=== PATIENT | male | born 1955 | race Caucasian/White ===

== ENCOUNTER 2023-02-12 12:32 | Outpatient (OUT) | payer MEDICARE, OTHER, SELFPAY ==
--- NOTE | 2023-02-12 12:41 | XR_ITS ---
The [address] [address] Patient Name: MATTY LIANG MRN: [id number] date: 1955 Sex: M Assigned Patient Location: RAD Current Patient Location: [facility] Accession/Order Number: [id number] Exam Date: 02/12/2023 12:45 Report Date: 02/12/2023 14:02 At the request of: TEODORA ARIAS Procedure: XR abdomen 1V EXAM: XR abdomen 1V HISTORY: Uretal stone COMPARISON: None. TECHNIQUE: AP view of the abdomen. FINDINGS: Nonobstructive bowel gas pattern is noted. There is no suspicious calcification. The osseous structures are intact. XR/XR abdomen 1V IMPRESSION: Nonobstructive bowel gas pattern. No suspicious renal calcification. Electronically authenticated by: RAMON OSBORNE Date: 02/12/2023 14:02
== END 2023-02-12 12:33 | disposition home or self-care (01) ==
LOC: RAD 12:37
PROVIDERS: PCP Family Medicine; Visit Provider Urology
DX: N13.2 Hydronephrosis with renal and ureteral calculous obstruction (principal)
CPT/HCPCS: 74018

== ENCOUNTER 2023-03-10 09:55 | Outpatient (OUT) | payer MEDICARE, OTHER, SELFPAY ==
--- NOTE | 2023-03-10 10:04 | XR_ITS ---
The [address] [address] Patient Name: MATTY LIANG MRN: [id number] date: 1955 Sex: M Assigned Patient Location: [facility] Current Patient Location: [facility] Accession/Order Number: [id number] Exam Date: 03/10/2023 10:05 Report Date: 03/10/2023 10:38 At the request of: TEODORA ARIAS Procedure: XR abdomen 1V EXAM: XR abdomen 1V HISTORY: Kidney Stone COMPARISON: None. TECHNIQUE: AP view of the abdomen. FINDINGS: Nonobstructive bowel gas pattern is noted. There is no suspicious calcification. Multilevel endplate degenerative changes disc disease identified at the visualized spine. XR/XR abdomen 1V IMPRESSION: Nonobstructive bowel gas pattern. Constipation. Electronically authenticated by: RAMON OSBORNE Date: 03/10/2023 10:38
== END 2023-03-10 09:56 | disposition home or self-care (01) ==
LOC: RAD 09:57
PROVIDERS: PCP Family Medicine; Visit Provider Urology
DX: N20.0 Calculus of kidney (principal)
CPT/HCPCS: 74018

== ENCOUNTER 2024-04-11 10:27 | Outpatient (OUT) | payer MEDICARE, OTHER, SELFPAY ==
--- NOTE | 2024-04-11 10:34 | XR_ITS ---
The [address] [address] Patient Name: MATTY LIANG MRN: [id number] date: 1955 Sex: M Assigned Patient Location: [facility] Current Patient Location: Accession/Order Number: [id number] Exam Date: 04/11/2024 10:37 Report Date: 04/12/2024 09:14 At the request of: TEODORA ARIAS Procedure: XR abdomen 1V EXAMINATION: XR abdomen 1V HISTORY: Kidney Stone COMPARISON: 03/10/2023 FINDINGS: KIDNEY/URETER - RIGHT: No visible renal or ureteral calcifications. KIDNEY/URETER - LEFT: No visible renal or ureteral calcifications. PELVIS: No visible ureteral calcifications. Any visible calcifications favor phleboliths. BOWEL: No abnormal dilation or deviation. BONES: Moderate to severe degenerative changes. Lumbosacral fusion. Bilateral hip osteoarthritis OTHER: Negative. No abnormal gaseous collections. XR/XR abdomen 1V IMPRESSION: No definite urinary tract calculi Electronically authenticated by: WILFREDO SEGURA Date: 04/12/2024 09:14
== END 2024-04-11 10:28 | disposition home or self-care (01) ==
LOC: RAD 10:32
PROVIDERS: PCP Family Medicine; Visit Provider Urology
DX: N20.0 Calculus of kidney (principal)
CPT/HCPCS: 74018

== ENCOUNTER 2024-07-18 07:19 | Day surgery (SDC) | payer MEDICARE, OTHER, SELFPAY ==
--- OUTSIDE RECORDS SUMMARY | 2024-07-18 07:23 | XMS_ITS | CCD ---
Author Organization [facility] Team Providers Care Wireless Construction Manager Name Role Phone JELANI DONOVAN Primary Care Physician JUANA ., DR ARAIZA Admitting Unavailable YAN ., DR ARAIZA Attending Unavailable ALVARO, DR AQUINO Primary Care Unavailable YAN ., DR ARAIZA Consulting Unavailable CECE II, LAUREN Consulting Unavailable KOJULIAN, ENEDINA Consulting Unavailable YAN ., DR ARAIZA Admitting Unavailable YAN ., DR ARAIZA Attending Unavailable ALVARO, DR AQUINO Primary Care Unavailable YAN ., DR ARAIZA Consulting Unavailable ZIEBER, DR AYLIN Weber Consulting Unavailable YAN ., DR ARAIZA Admitting Unavailable YNA ., DR ARAIZA Attending Unavailable ALVARO, DR AQUINO Primary Care Unavailable YAN ., DR ARAIZA Consulting Unavailable YAN ., DR ARAIZA Admitting Unavailable YAN ., DR ARAIZA Attending Unavailable ALVARO, DR AQUINO Primary Care Unavailable YAN ., DR ARAIZA Consulting Unavailable Asaad, Imad Unavailable Jelani Donovan Primary Care Unavailable Jelani Donovan Attending Unavailable Jelani Donovan Admitting Unavailable Jelani Donovan Primary Care Unavailable YanAriel Admitting Unavailable YanAriel Attending Unavailable YANAriel Attending Unavailable YAN, Ariel Weber Attending Unavailable YANAriel Attending Unavailable Allergies Allergy Classification Reported Allergen(s) Allergy Type Date of Onset Reaction(s) Facility (2 sources) Bacitracin / Neomycin / Polymyxin B; Translations: [Neosporin] Drug Allergy [facility] Repository (1 source) bacitracin / neomycin / polymyxin b; Translations: [bacitracin/neom ycin/polymyxin B topical] Drug Allergy Eruption of skin (disorder) [facility] (1 source) Bacitracin Drug Allergy 3 [facility] Repository (1 source) Neomycin Drug Allergy [address] [place] [address] Repository (1 source) polymyxin B Drug allergy (disorder) [address] [place] [address] Repository Medications Current Medications Medication Drug Class(es) Dates Sig (Normalized) Sig (Original) acetaminophen 500 mg oral tablet (6 sources) Start: 01-23-2020 take 2 tablets by mouth every four hours as needed for pain Tylenol Extra Strength 500 mg oral tablet 1,000 mg = 2 tab(s), Oral, q4hr, PRN for pain Start Date: 01/23/20 Status: Ordered amitriptyline hydrochloride 25 mg oral tablet (10 sources) Tricyclic Antidepressant Start: 01-16-2020 take 2 tablets by mouth once daily at bedtime amitriptyline 25 mg Tab 50 mg = 2 tab(s), Oral, Once a day (at bedtime), Depression Start Date: 01/16/20 Status: Ordered atorvastatin 20 mg oral tablet (10 sources) HMG-CoA Reductase Inhibitor Start: 08-25-2022 atorvastatin 20 mg Tab Refills(s) 0 Start Date: 08/25/22 Status: Ordered ciprofloxacin 500 mg oral tablet (3 sources) Quinolone Antimicrobial Start: 04-18-2024 End: 04-25-2024 Cipro 500 mg Tab 500 mg = 1 tab(s), Oral, BID, start 3 days prior to procedure, X 7 day(s), # 14 tab(s), Refills(s) 0, Pharmacy: [facility]/pharmacy #[id number], 187, cm, 04/18/24 8:50:00 EDT, Height/Length Dosing, 129, kg, 04/18/24 8:50:00 EDT, Weight Dosing Start Date: 04/18/24 Stop Date: 04/25/24 Status: Ordered Start: 09-16-2022 take 1 tablet by jessica th once daily Cipro 500 mg Tab 500 mg = 1 tab(s), Oral, Daily, Take 1 tablet the day before the procedure and 1 tablet after the procedure, # 2 tab(s), Refills(s) 0, Pharmacy: [facility]/pharmacy #[id number], 187, cm, 08/28/22 12:09:00 EST, Height/Length Dosing, 132.5, kg, 08/28/22 12:09:00 EST... Start Date: 09/16/22 Status: Ordered diclofenac sodium 75 mg extended release oral tablet (10 sources) Nonsteroidal Anti-inflammatory Drug Start: 01-23-2020 take 75 mg by mouth twice daily diclofenac 75 mg, Oral, BID, Inflammation Start Date: 01/23/20 Status: Ordered take 1 tablet by jessica th every twelve hours Diclofenac Sodium 75 MG 1 tablet with fo od or milk Orally Twice a day for 30 day(s) Active docusate sodium 100 mg oral capsule (10 sources) Start: 01-22-2020 take 1 capsule by mouth twice daily Colace 100 mg Cap 100 mg = 1 cap(s), Oral, BID, Refills(s) 0 Start Date: 01/22/20 Status: Ordered Colace 100 MG 3 CAPS DAILY Orally Once a day Active hydrocortisone 25 mg/ml topical cream (2 sources) Corticosteroid Start: 12-24-2022 Anusol-HC 2.5 % 1 application Rectal Twice a day for 30 days November, Active ondansetron 4 mg disintegrating oral tablet (4 sources) Serotonin-3 Receptor Antagonist Start: 08-25-2022 ondansetron 4 mg Dis Tab Refills(s) 0 Start Date: 08/25/22 Status: Ordered polyethylene glycol 3350 543152 mg / potassium chloride 2970 mg / sodium bicarbonate 6740 mg / sodium chloride 5860 mg / sodium sulfate 57357 mg powder for oral solution (4 sources) Osmotic Laxative Start: 02-18-2023 Golytely 236 GM At 4:00 pm the day prior to colonoscopy Orally 8 ounces every 15 minutes for Jan, Active Start: 12-24-2022 take 236 g by mouth once daily Golytely 236 GM 236 GM THE DAY BEFORE THE COLONOSCOPY Orally THE DAY BEFORE THE COLONOSCOPY for 1 days November, Active sildenafil 50 mg oral tablet (6 sources) Phosphodiesterase 5 Inhibitor Start: 08-25-2022 sildenafil 50 mg Tab Refills(s) 0 Start Date: 08/25/22 Status: Ordered tamsulosin hydrochloride 0.4 mg oral capsule (4 sources) alpha-Adrenergic Emily Start: 08-25-2022 take 1 capsule by mouth twice daily Flomax 0.4 mg Cap 0.4 mg = 1 cap(s), Oral, BID, # 10 cap(s), Refills(s) 0, Pharmacy: [facility]/pharmacy #[id number], 187, cm, 08/25/22 10:32:00 EST, Height/Length Dosing, 130, kg, 08/25/22 10:32:00 EST, Weight Dosing Start Date: 08/25/22 Status: Ordered temazepam 30 mg oral capsule (10 sources) Benzodiazepine Start: 01-16-2020 take 1 capsule by mouth once daily at bedtime as needed for sleep temazepam 30 mg Cap 30 mg = 1 cap(s), Oral, Once a day (at bedtime), PRN for sleep Start Date: 01/16/20 Status: Ordered Completed/Discontinued Medications Medication Drug Class(es) Dates Sig (Normalized) Sig (Original) cetirizine hydrochloride 10 mg oral tablet (4 sources) Histamine-1 Receptor Antagonist take 1 tablet by mouth every twenty-four hours Cetirizine HCl 10 MG 1 tablet Orally Once a day Not-Taking Doxylamine (2 sources) Unisom Not-Taking fluticasone (2 sources) Corticosteroid Flonase Not-Taking hyaluronate (20 sources) Start: 03-01-2019 Supartz Feb, 25 mg Start: 02-22-2019 Supartz Jan 25 mg Start: 02-15-2019 Supartz Jan 25 mg Start: 02-01-2019 Supartz Jan 25 mg Start: 01-25-2019 Supartz Jan 25 mg Lipo-Flavonoid Plus - (2 sources) Lipo-Flavonoid P guera - Orally Not-Taking omeprazole 40 mg delayed release oral capsule (4 sources) Proton Pump Inhibitor Start: 09-15-19 17 take 1 capsule by mouth every twenty-four hours Omeprazole 40 mg 1 capsule Orally Once a day for 30 day(s) Aug, Not-Taking take 1 capsule by mo ut every twenty-four hours Omeprazole 20 mg 1 CAPSULE Orally Once a day Not-Taking psyllium 400 mg oral capsule (10 sources) Start: 01-16-2020 take 8 capsules by mouth three times daily Metamucil 400 mg oral capsule 2,000 mg = 5 cap(s), Oral, TID, fiber with at least 8 ounces of water Start Date: 01/16/20 Status: Ordered Metamucil 48.57 % as directed Orally Not-Taking Metamucil 1 tab Oral Not-Taking sertraline 50 mg oral tablet (2 sources) Serotonin Reuptake Inhibitor take 0.5 tablet by mouth once daily, then take 1 tablet by mouth once daily Sertraline HCl 50 MG TAKE 1/2 TABLET BY MOUTH DAILY FOR 14 DAYS, THEN TAKE 1 DAILY Oral for 30 Not-Taking Triamcinolone (4 sources) Corticosteroid Start: 01-05-20 Kenalog -40 mg Dec, 40 mg Problems Problem Classification Problem Date Documented Da te Episodic/Chronic Abdominal pain (4 sources) Epigastric pain; Translations: [Epigastric pain] Episodic Calculus of urinary tract (7 sources) Calculus of ureter; Translations: [Calculus of kidney] Onset: 3 Episodic Disorders of lipid metabolism (2 sources) Hyperlipidemia, unspecified; Translations: [Pure hypercholesterolemia, unspecified] Onset: 3 Chronic Gastrointestinal hemorrhage (5 sources) Rectal hemorrhage; Translations: [Hemorrhage of anus and rectum] Episodic Genitourinary symptoms and ill-defined conditions (8 sources) Microscopic hematuria; Translations: [Other microscopic hematuria] Onset: 3 Episodic Hemorrhoids (5 sources) Hemorrhoids; Translations: [Unspecified hemorrhoids] Episodic Hyperplasia of prostate (2 sources) Benign prostatic hypertrophy without outflow obstruction; Translations: [Benign prostatic hyperplasia without lower urinary tract symptoms] Onset: 4 Chronic Mood disorders (6 sources) Depressive disorder 01-16-2020 Chronic Osteoarthritis (14 sources) Osteoarthritis of knee; Translations: [Arthritis of left knee] 01-16-2020 Chronic Other aftercare (1 source) Other filler leaf cutter long (current) drug therapy; Translations: [OTH PRIMARY COUNSELOR CURRENT DRUG THERAPY] Onset: 3 Episodic Other and unspecified benign neoplasm (2 sources) History of polyp of colon; Translations: [Personal history of colonic polyps] Episodic Other and unspecified benign neoplasm (1 source) Personal history of colonic polyps Episodic Other connective tissue disease (1 source) Presence of unspecified artificial knee joint; Translations: [PRESENCE UNS ARTIFICIAL KNEE JOINT] Onset: 3 Chronic Other connective tissue disease (4 sources) History of total knee arthroplasty; Translations: [Presence of right artificial knee joint] Chronic Other connective tissue disease (1 source) Arthrodesis status; Translations: [ARTHRODESIS STATUS] Onset: 3 Episodic Other diseases of bladder and urethra (1 source) Other specified disorders of bladder; Translations: [OTHER SPECIFIED DISORDERS BLADDER] Onset: 3 Chronic Other diseases of kidney and ureters (2 sources) Urinary tract obstruction; Translations: [Hydronephrosis with renal and ureteral calculous obstruction] Onset: 3 Episodic Other diseases of kidney and ureters (6 sources) Hydronephrosis 08-25-2022 Episodic Other diseases of kidney and ureters (4 sources) Hydronephrosis with renal and ureteral calculous obstruction; Translations: [HYDRONPHROS RENL AND URETRL CALCUL OBST] Onset: 3 Episodic Other gastrointestinal disorders (4 sources) Constipation; Translations: [Constipation, unspecified] Episodic Other gastrointestinal disorders (1 source) Constipation, unspecified Episodic Other nutritional; endocrine; and metabolic disorders (4 sources) Obese class I; Translations: [Body mass index (BMI) 33.0-33.9, adult] Chronic Other screening for suspected conditions (not mental disorders or infectious disease) (5 sources) Abnormal electrocardiogram [ECG] [EKG]; Translations: [Encounter for screening for malignant neoplasm of prostate] Onset: 3 Episodic Residual codes; unclassified (1 source) Family history of malignant neoplasm of digestive organs Episodic Unclassified (1 source) Patient encounter status 03-23-2023 Varicose veins of lower extremity (4 sources) Varicose veins of lower extremity; Translations: [Varicose veins of bilateral lower extremities with pain] Episodic Results Test Name Value Interpretation Reference Range Facility ISTAT XRay CREon 06-14-2024 Creatinine [Mass/Vol] 1.4 mg/dL High 0.6-1.3 [facility] Comment on above: Result Comment: ER/E SD physician is notified/shown all ISTAT results. Critical values may be confirmed by laboratory testing if deemed necessary by ER attending doctor. Performed By: #### I SCRE #### [address] ISTAT GFR 54.070 Normal [facility] Comment on above: Result Comment: PERF ORMED BY: [place] [address] PATHOLOGIST SATURATION DIVER CESIA MEHTA M.D. Performed By: #### I SCRE #### [address] MR prostate wo/w conon 06-14 MR prostate wo/w con [facility] [address] [place] [address] [place] [address] MRI Report Signed Patient: Matty Liang MR#: [id number] 35 : 1955 Acct:[id number] Age/Sex: 68 / M ADM Date: 06/14/24 Loc: MR Room: Type: [facility] Attending Dr: Ariel Yan MD Copies to: Ariel Yan MD Ordering Provider: Ariel Yan MD Date of Service: 06/14/24 MR/MR prostate wo/w con: R97.20 EXAMINATION: MR prostate wo/w con HISTORY: Elevated PSA. COMPARISON: NONE TECHNIQUE: Multiparametric imaging of the prostate gland was performed with IV contrast. FINDINGS: Prostate Dimensions: 5.9 x 5.4 x 6.9 cm Prostate Volume: 115 mL. Peripheral Zone: Heterogenous inT2 signal suggestive of prior prostatitis. No suspicious T2 or ADC map abnormality is identified to suggest prostate malignancy. Central/Transitional Zone: BPH changes. Seminal Vesicles: Decompressed. Neurovascular bundles: Unremarkable. Lymphadenopathy: No evidence of lymphadenopathy. Bladder: No focal lesion. Bowel: Diverticulosis. Peritoneal Cavity: No free fluid. Bones: No suspicious bony lesion. MR/MR prostate wo/w con IMPRESSION: No MRI evidence of clinically significant prostate cancer. BPH. Impression dictated by: Alirio Coles Jr., D.O.06/14/2024 3:21 PM Dictation Location: [place] [address] Transcribed By: [facility] 06/14/24 1521 Dictated By: Alirio Coles Jr, DO 06/14/24 1514 Signed By: 06/14/24 1521 Normal [facility] Ambulatory Visit Summaryon 0 04-18-2024 Ambulatory Visit Summary Ambulatory Visit Summary MATTY LIANG :1955 Visit Date:04/18/2024 Ambulatory Visit Instructions Your Diagnosis Elevated PSA History of kidney stones BPH (benign prostatic hyperplasia) Tests Performed MRI Pelvis (Soft Tissue) w/ + w/o contrast -- Results Pending -- Please visit your patient portal for your results or contact your primary care physician. Your Care Team Attending Physician - Ariel YAN MD Primary Care Physician - JELANI DONOVAN MD This Is Your Medications List Contact prescribing physician if questions or concerns acetaminophen (Tylenol Extra Strength 500 mg oral tablet) amitriptyline (amitriptyline 25 mg Tab) atorvastatin (atorvastatin 20 mg Tab) diclofenac docusate (Colace 100 mg Cap) psyllium (Metamucil 400 mg oral capsule) sildenafil (sildenafil 50 mg Tab) temazepam (temazepam 30 mg Cap) Procedures Performed Total knee arthroplasty (01/23/2020), Arthroscopy of knee, Bone spur of left foot, Excision of ganglion cyst of wrist, recurrent, Excision of peripheral neuroma, History of spinal fusion, History of tonsillectomy, History of total knee arthroplasty, Repair of left direct inguinal hernia, Repair of right direct inguinal hernia, Varicose vein stripping. Discharge Vitals Temperature (Temporal Artery) 37 ?C Heart Rate (Peripheral) 79 Respiratory Rate 18 Blood Pressure 138/83 Height 187 cm Height 74 in Weight 129 kg Weight 283.8 lb BMI 36.89 What to do next You Need to Schedule the Following Appointments Follow Up with JUANA HOGAN, SUJATHA Cruz When: Where: [facility] [address] , [place] [address]- [phone] Medications What How Much When Instructions Unchanged acetaminophen (Tylenol Extra Strength 500 mg oral tablet) 2 Tablets By Mouth Every 4 hours as needed for for pain Contact prescribing physician if questions or concerns Unchanged amitriptyline (amitriptyline 25 mg Tab) 2 Tablets By Mouth Once a day (at bedtime) Contact prescribing physician if questions or concerns Unchanged atorvastatin (atorvastatin 20 mg Tab) Contact prescribing physician if questions or concerns Unchanged diclofenac 75 Milligram By Mouth 2 times a day Contact prescribing physician if questions or concerns Unchanged docusate (Colace 100 mg Cap) 1 Capsules By Mouth 2 times a day Contact prescribing physician if questions or concerns Unchanged psyllium (Metamucil 400 mg oral capsule) 5 Capsules By Mouth 3 times a day fiber with at least 8 ounces of water Contact prescribing physician if questions or concerns Unchanged sildenafil (sildenafil 50 mg Tab) Contact prescribing physician if questions or concerns Unchanged temazepam (temazepam 30 mg Cap) 1 Capsules By Mouth Once a day (at bedtime) as needed for for sleep Contact prescribing physician if questions or concerns Allergies Neosporin (Rash) Problems Ongoing - Any problem that you are currently receiving treatment for. BPH (benign prostatic hyperplasia) Elevated PSA History of kidney stones Microhematuria Ureteral stone with hydronephrosis Patient Survey You may receive a survey via text or e-mail asking about your office visit. Please share your experience with us by completing your survey. We appreciate your feedback and thank you for choosing us for your care. Education Materials Transrectal Ultrasound-Guided Prostate Biopsy, Care After The following information offers guidance on how to care for yourself after your procedure. Your health care provider may also give you more specific instructions. If you have problems or questions, contact your health care provider. What can I expect after the procedure? After the procedure, it is common to have: ? Pain and discomfort near your rectum, especially while sitting. ? [place]-colored urine due to small amounts of blood in your urine. ? A burning feeling while urinating. ? Blood in your stool (feces) or bleeding from your rectum. ? Blood in your semen. Follow these instructions at home: Medicines ? Take [id number] and prescription medicines only as told by your health care provider. ? If you were given a sedative during your procedure, it can affect you for several hours. Do not drive or operate machinery until your health care provider says that it is safe. ? If you were prescribed an antibiotic medicine, take it as told by your health care provider. Do not stop using the antibiotic even if you start to feel better. Activity ? Return to your normal activities as told by your health care provider. Ask your health care provider what activities are safe for you. ? Ask your health care provider when it is okay for you to resume sexual activity. ? You may have to avoid lifting. Ask your health care provider how much you can safely lift. General instructions ? Drink enough fluid to keep your urine pa (more content not included)... Normal [facility] Urology Office/Clinic Noteon 04-18-2024 Urology Office/Clinic Note Urology Office/Clinic Note Chief Complaint 1 year f/u HPI Staff 1 yr w/ KUB. Previous dx: ureteral stone with hydro, prostate cancer screening. PSA 04/08/23 - 4.11 04/08/24 - 5.89 Dysuria: denies Incomplete bladder emptying: denies Hematuria: denies Frequency: denies Urgency: denies Nocturia: 1-2x Stream: good steady stream Leaking: denies Post void dripping: denies Wearing pads/ Depends: denies Urge incontinence: denies Stress incontinence: denies Incontinence without Sensory Awareness: denies Abdominal pain: denies Flank pain: denies Sexual complaints: denies History of Present Illness Tests reviewed: reviewed UA, PSA, KUB I have reviewed the previous health record information and history for this patient from Dr. Yan. I have reviewed and verified the staff HPI to be accurate for this encounter. Review of Systems PHQ Score Initial Depression Screen Score: 0 SCORE ROS - Provider Constitutional: denies weight loss, denies hot flashes. Eyes: denies eye problems. Gastrointestinal: denies nausea, denies vomiting. Cardiovascular: denies chest pain or angina. Integumentary: no dryness Musculoskeletal: denies musculoskeletal symptoms. ENMT: denies otolaryngeal symptoms. Respiratory: no shortness of breath. Heme/Lymph: denies easy bleeding tendency, denies easy bruising tendency. Psychiatric: no confusion, no anxiety. Genitourinary: See HPI. Physical Exam Vitals & Measurements T: 37 ?C(Temporal Artery) HR: 79(Peripheral) RR: 18 BP: 138/83 HT: 74 in HT: 187 cm WT: 129 kg WT: 283.8 lb BMI: 36.89 General Appearance: alert, no distress, well nourished, well developed male. Assessment/Plan 1. Elevated PSA (R97.20: Elevated prostate specific antigen [PSA]) PSA 12/06/07 - 1.54 10/04/09 - 1.25 ... 04/08/23 - 4.11 04/08/24 - 5.89 Pt previously thought his PCP was checking his PSA. Current level is highest on record. Advised pt an elevated PSA could indicate prostate cancer, prostate infection, prostate inflammation without infection, prostate manipulation, or benign prostate enlargement (BPH). Recommended prostate MRI and biopsy to better evaluate. Pt agreeable. -Schedule prostate MRI -If positive, will schedule MRI fusion. If negative, will schedule mapped out bx. Risks of the procedure were discussed to include but not be limited to bleeding, pain, infection, difficulties with urination, injury to the urethra, prostate or bladder or surrounding tissues, injury from positioning on the table, swelling and bruising of the skin, and need for further procedures. 2. History of kidney stones (Z87.442: Personal history of urinary calculi) S/p Cysto/L URS/laser litho/basket extraction/L stent/clot evacuation 09/11/22. First stone event. Stone analysis - 100% CaOx [place]. S/p Cysto/L stent removal 09/23/22. KUB 02/12/23 for left abdominal pain - negative. KUB 03/10/23 - negative. KUB 04/11/24 [facility] - neg for stones. Reviewed imaging results, no stones noted. Will continue to monitor. 3. BPH (benign prostatic hyperplasia) (N40.0: Benign prostatic hyperplasia without lower urinary tract symptoms) UA today negative for blood and infection. Not voicing any issues with urination. Taking prostate supplement. Follow-up With When Contact Information JUANA HOGAN, Ariel Weber, [facility] [address], [place] [address] [phone] Additional Instructions: f/u pending prostate MRI and biopsy Patient Education Transrectal Ultrasound-Guided Prostate Biopsy, Care After Transrectal Ultrasound-Guided Prostate Biopsy Magnetic Resonance Imaging Mily Dhillon, personally scribed for Dr. Yan on 04/18/2024 09:22:15. . Documentation recorded by the scribeMily, accurately reflects the services(s) I performed and decisions made by me. Authenticated by Dr. Yan on 04/18/2024 09:23:56. Problem List/Past Medical History Ongoing BPH (benign prostatic hyperplasia) Elevated PSA History of kidney stones Microhematuria Ureteral stone with hydronephrosis Historical No qualifying data Procedure/Surgical History Total knee arthroplasty (01/23/2020), Arthroscopy of knee, Bone spur of left foot, Excision of ganglion cyst of wrist, recurrent, Excision of peripheral neuroma, History of spinal fusion, History of tonsillectomy, History of total knee arthroplasty, Repair of left direct inguinal hernia, Repair of right direct inguinal hernia, Varicose vein stripping. Medications amitriptyline 25 mg Tab, 50 mg= 2 tab(s), Oral, Once a day (at bedtime) atorvastatin 20 mg Tab Colace 100 mg Cap, 100 mg= 1 cap(s), Oral, BID diclofenac, 75 mg, Oral, BID Metamucil 400 mg oral capsule, 2000 mg= 5 cap(s), Oral, TID sildenafil 50 mg Tab temazepam 30 mg Cap, 30 mg= 1 cap(s), Oral, Once a day (at bedtime), PRN Tylenol Extra Strength 500 mg oral tablet, 1000 mg= 2 tab(s), Oral, q4hr, PRN Allergies N (more content not included)... Normal [facility] Comment on above: Result Comment: Elec tronically Signed By: Ariel YAN MD\.br\Date and Time Signed: 04/18/24 09:24 EDT\.br\Electronically Co-Signed By: Mily Madrigal\.br\Date and Time Co-Signed: 04/18/24 09:22 EDT Complete Blood Count Auto Di ffon 04-08-2024 Basophils (Bld) [#/Vol] 0.1 10*3/uL Normal 0.0-0.2 [facility] Comment on above: Order Comment: BRYCE TURNER Result Comment: PERF ORMED BY: [place] [address] PATHOLOGIST SATURATION DIVER MICHELLE TOUSSAINT M.D. Performed By: #### P SATOTAL, CBC, CMP, LIPID, TSH3, T4F #### [address] Basophils/100 WBC (Bld) 1.4 % Normal . [facility] Comment on above: Order Comment: BRYCE TURNER Performed By: #### P SATOTAL, CBC, CMP, LIPID, TSH3, T4F #### [address] Eosinophils (Bld) [#/Vol] 0.2 10*3/uL Normal 0.0-0.45 [facility] Comment on above: Order Comment: FASTI NG. JKW Performed By: #### P SATOTAL, CBC, CMP, LIPID, TSH3, T4F #### [address] Eosinophils/100 WBC (Bld) 2.8 % Normal . [facility] Comment on above: Order Comment: FASTI NG. JKW Performed By: #### P SATOTAL, CBC, CMP, LIPID, TSH3, T4F #### [address] Erythrocyte distribution width (RBC) [Ratio] 14.9 % High 12.0-14.8 [facility] Comment on above: Order Comment: FASTI NG. JKW Performed By: #### P SATOTAL, CBC, CMP, LIPID, TSH3, T4F #### [address] Hematocrit (Bld) [Volume fraction] 38.9 % Normal 38.8-50.0 [facility] Comment on above: Order Comment: FASTI NG. JKW Performed By: #### P SATOTAL, CBC, CMP, LIPID, TSH3, T4F #### [address] Hemoglobin (Bld) [Mass/Vol] 12.8 g/dL Low 13.0-17.0 [facility] Comment on above: Order Comment: FASTI NG. JKW Performed By: #### P SATOTAL, CBC, CMP, LIPID, TSH3, T4F #### [address] Lymphocytes (Bld) [#/Vol] 2.0 10*3/uL Normal 1.00-4.8 [facility] Comment on above: Order Comment: FASTI NG. JKW Performed By: #### P SATOTAL, CBC, CMP, LIPID, TSH3, T4F #### [address] Lymphocytes/100 WBC (Bld) 25.7 % Normal . [facility] Comment on above: Order Comment: FASTI NG. JKW Performed By: #### P SATOTAL, CBC, CMP, LIPID, TSH3, T4F #### [address] MCH (RBC) [Entitic mass] 27.4 pg Low 27.5-35.2 [facility] Comment on above: Order Comment: FASTI NG. JKW Performed By: #### P SATOTAL, CBC, CMP, LIPID, TSH3, T4F #### [address] MCV (RBC) [Entitic vol] 83.0 fL Low 83.5-101 [facility] Comment on above: Order Comment: FASTI NG. JKW Performed By: #### P SATOTAL, CBC, CMP, LIPID, TSH3, T4F #### [address] Mean Corpuscular HGB Conc 33.1 g/dL Normal 32.5-35.6 [facility] Comment on above: Order Comment: FASTI NG. JKW Performed By: #### P SATOTAL, CBC, CMP, LIPID, TSH3, T4F #### [address] Monocytes (Bld) [#/Vol] 0.5 10*3/uL Normal 0.0-0.8 [facility] Comment on above: Order Comment: FASTI NG. JKW Performed By: #### P SATOTAL, CBC, CMP, LIPID, TSH3, T4F #### [address] Monocytes/100 WBC (Bld) 6.1 % Normal . [facility] Comment on above: Order Comment: FASTI NG. JKW Performed By: #### P SATOTAL, CBC, CMP, LIPID, TSH3, T4F #### [address] Neutrophils (Bld) [#/Vol] 4.9 10*3/uL Normal 1.8-7.7 [facility] Comment on above: Order Comment: FASTI NG. JKW Performed By: #### P SATOTAL, CBC, CMP, LIPID, TSH3, T4F #### [address] Neutrophils/100 WBC (Bld) 64.0 % Normal . [facility] Comment on above: Order Comment: FASTI NG. JKW Performed By: #### P SATOTAL, CBC, CMP, LIPID, TSH3, T4F #### [address] NRBC% 0.1 /100{WBC} Normal 0-0.5 [facility] Comment on above: Order Comment: FASTI NG. JKW Performed By: #### P SATOTAL, CBC, CMP, LIPID, TSH3, T4F #### [address] Platelet mean volume (Bld) [Entitic vol] 8.7 fL Normal 6.6-10.[address] [facility] Comment on above: Order Comment: FASTI NG. JKW Performed By: #### P SATOTAL, CBC, CMP, LIPID, TSH3, T4F #### [address] Platelets (Bld) [#/Vol] 222 10*3/uL Normal 150-450 [facility] Comment on above: Order Comment: FASTI NG. JKW Performed By: #### P SATOTAL, CBC, CMP, LIPID, TSH3, T4F #### [address] RBC (Bld) [#/Vol] 4.68 10*6/uL Normal 3.90-5.60 [facility] Comment on above: Order Comment: FASTI NG. JKW Performed By: #### P SATOTAL, CBC, CMP, LIPID, TSH3, T4F #### [address] WBC (Bld) [#/Vol] 7.7 10*3/uL Normal 4.1-10.5 [facility] Comment on above: Order Comment: FASTI NG. JKW Performed By: #### P SATOTAL, CBC, CMP, LIPID, TSH3, T4F #### [address] Comprehensive Metabolic Pane shauna 04-08-2024 Albumin [Mass/Vol] 4.0 g/dL Normal 3.5-5.7 [facility] Comment on above: Order Comment: FASTI NG. JKW Performed By: #### P SATOTAL, CBC, CMP, LIPID, TSH3, T4F #### [address] Albumin/Globulin [Mass ratio] 1.7 {ratio} Normal [facility] Comment on above: Order Comment: FASTI NG. JKW Performed By: #### P SATOTAL, CBC, CMP, LIPID, TSH3, T4F #### [address] ALP [Catalytic activity/Vol] 85 U/L Normal 34-104 [facility] Comment on above: Order Comment: FASTI NG. JKW Performed By: #### P SATOTAL, CBC, CMP, LIPID, TSH3, T4F #### [address] ALT [Catalytic activity/Vol] 29 U/L Normal 7-52 [facility] Comment on above: Order Comment: FASTI NG. JKW Performed By: #### P SATOTAL, CBC, CMP, LIPID, TSH3, T4F #### [address] Anion gap [Moles/Vol] 9.8 mmol/L Normal 6.0-15.0 [facility] Comment on above: Order Comment: FASTI NG. JKW Performed By: #### P SATOTAL, CBC, CMP, LIPID, TSH3, T4F #### [address] AST [Catalytic activity/Vol] 23 U/L Normal 13-39 [facility] Comment on above: Order Comment: FASTI NG. JKW Performed By: #### P SATOTAL, CBC, CMP, LIPID, TSH3, T4F #### [facility] [address] Bilirubin [Mass/Vol] 0.6 mg/dL Normal 0.3-1.0 [facility] Comment on above: Order Comment: FASTI NG. JKW Performed By: #### P SATOTAL, CBC, CMP, LIPID, TSH3, T4F #### [facility] [address] Calcium [Mass/Vol] 9.2 mg/dL Normal 8.6-10.3 [facility] Comment on above: Order Comment: FASTI NG. JKW Performed By: #### P SATOTAL, CBC, CMP, LIPID, TSH3, T4F #### [address] Chloride [Moles/Vol] 108 mmol/L High 98-107 [facility] Comment on above: Order Comment: FASTI NG. JKW Performed By: #### P SATOTAL, CBC, CMP, LIPID, TSH3, T4F #### [address] CO2 [Moles/Vol] 27.8 mmol/L Normal 21.0-31.0 [facility] Comment on above: Order Comment: FASTI NG. JKW Performed By: #### P SATOTAL, CBC, CMP, LIPID, TSH3, T4F #### [address] Creatinine [Mass/Vol] 1.32 mg/dL High 0.70-1.30 [facility] Comment on above: Order Comment: FASTI NG. JKW Performed By: #### P SATOTAL, CBC, CMP, LIPID, TSH3, T4F #### [place] [address] [place] GFR/1.73 sq M.predicted MDRD (S/P/Bld) [Vol rate/Area] 58.026 mL/min/{1.73_m2} Normal [facility] Comment on above: Order Comment: FASTI NG. JKW Performed By: #### P SATOTAL, CBC, CMP, LIPID, TSH3, T4F #### [facility] [address] Globulin (S) [Mass/Vol] 2.3 g/dL Normal [facility] Comment on above: Order Comment: FASTI NG. JKW Performed By: #### P SATOTAL, CBC, CMP, LIPID, TSH3, T4F #### [address] Glucose [Mass/Vol] 94 mg/dL Normal 70-100 [facility] Comment on above: Order Comment: FASTI NG. JKW Result Comment: [facility] Glucose Reference Range is dependent on time and content of last meal. Glucose of more than 200 mg/dL in a nonstressed, ambulatory subject supports the diagnosis of Diabetes Mellitus. ADA recommended reference range Performed By: #### P SATOTAL, CBC, CMP, LIPID, TSH3, T4F #### [address] Potassium [Moles/Vol] 4.6 mmol/L Normal 3.5-5.1 [facility] Comment on above: Order Comment: FASTI NG. JKW Performed By: #### P SATOTAL, CBC, CMP, LIPID, TSH3, T4F #### [address] Protein [Mass/Vol] 6.3 g/dL Low 6.4-8.9 [facility] Comment on above: Order Comment: FASTI NG. JKW Performed By: #### P SATOTAL, CBC, CMP, LIPID, TSH3, T4F #### [address] Sodium [Moles/Vol] 141 mmol/L Normal 136-145 [facility] Comment on above: Order Comment: FASTI NG. JKW Performed By: #### P SATOTAL, CBC, CMP, LIPID, TSH3, T4F #### [address] Urea nitrogen [Mass/Vol] 21 mg/dL Normal 7-25 [facility] Comment on above: Order Comment: FASTI NG. JKW Performed By: #### P SATOTAL, CBC, CMP, LIPID, TSH3, T4F #### [facility] [address] Free T4 (Free Thyroxine)on 0 04-08-2024 Free T4 [Mass/Vol] 0.91 ng/dL Normal 0.61-1.12 [facility] Comment on above: Order Comment: FASTI NG. JKW Performed By: #### P SATOTAL, CBC, CMP, LIPID, TSH3, T4F #### [facility] [address] Lipid Panelon 04-08-2024 Cholesterol [Mass/Vol] 171 mg/dL Normal 140-200 [facility] Comment on above: Order Comment: FASTI NG. JKW Result Comment: Chol less than 200 mg/dl low risk Chol 201-239 mg/dl borderline risk Chol 240 mg/dl and greater high risk Performed By: #### P SATOTAL, CBC, CMP, LIPID, TSH3, T4F #### [facility] [address] [place] [id number] [facility] Cholesterol in HDL [Mass/Vol] 35 mg/dL Normal 23-92 [facility] Comment on above: Order Comment: FASTI NG. JKW Result Comment: HDL CHOL ATP-III CLASSIFICATION Cardiovascular Risk HDL > or equal to 60 mg/dL LOW HDL < 40 mg/dL HIGH Performed By: #### P SATOTAL, CBC, CMP, LIPID, TSH3, T4F #### [facility] [address] [place] [id number] [facility] Cholesterol.total/Cho lesterol in HDL [Mass ratio] 4.9 {ratio} Normal <5.0 [facility] Comment on above: Order Comment: FASTI NG. JKW Performed By: #### P SATOTAL, CBC, CMP, LIPID, TSH3, T4F #### [facility] [address] [place] [id number] [facility] LDL Cholesterol,Calculate d 93 mg/dL Normal 0-100 [facility] Comment on above: Order Comment: FASTI NG. JKW Result Comment: LDL ATP III CLASSIFICATION LDL less than 100 mg/dL Optimal LDL 100-129 mg/dL Near or above optimal LDL 130-159 mg/dL Borderline high LDL 160-189 mg/dL High LDL greater than 189 mg/dL Very high Performed By: #### P SATOTAL, CBC, CMP, LIPID, TSH3, T4F #### [address] Triglyceride w/Reflex 215 mg/dL High 0-149 [facility] Comment on above: Order Comment: BRYCE HEWITTW Result Comment: TRIG ATP III CLASSIFICATION TRIG less than 150 mg/dL Normal TRIG 150-199 mg/dL Borderline high TRIG 200-500 mg/dL High TRIG greater than 500 mg/dL Very high Standard traceable to the Center for Disease Conrtrol and Prevention (CDC) test method. Performed By: #### P SATOTAL, CBC, CMP, LIPID, TSH3, T4F #### [address] VLDL CHOLESTEROL 43 mg/dL Normal [facility] Comment on above: Order Comment: BRYCE HEWITTW Performed By: #### P SATOTAL, CBC, CMP, LIPID, TSH3, T4F #### [address] PSA Total (Not a Screen)on 0 04-08-2024 PSA Total (Not a Screen) 5.890 ng/mL High 0.000-4.000 [facility] Comment on above: Order Comment: BRYCE HEWITTW Result Comment: Seri al tumor marker results determined by assays using different manufacturers or methods may not be comparable. [facility] bicycle designer and method: [employer] DXI, CHEMILUMINESCENT IMMUNOASSAY. PERFORMED BY: [place] [address] PATHOLOGIST SATURATION DIVER MICHELLE TOUSSAINT M.D. Performed By: #### P SATOTAL, CBC, CMP, LIPID, TSH3, T4F #### [address] Thyroid Stimulating Hormoneo n 04-08-2024 TSH Qn 2.10 m[IU]/L Normal 0.45-5.33 The [facility] Comment on above: Order Comment: RAMOSJacquie CHAMORRO. JKW Result Comment: PERF ORMED BY: [facility] [address] [place] [address] PATHOLOGIST SATURATION DIVER MICHELLE TOUSSAINT M.D. Performed By: #### P SATOTAL, CBC, CMP, LIPID, TSH3, T4F #### [facility] [address] CALCULI, URINARYon 3 2,8 Dihydroxyadenine Normal [facility] Comment on above: Performed By: #### C ALCULI #### [facility] [address] [address] [address] Tana North Ammonium Acid Urate Normal [facility] Comment on above: Performed By: #### C ALCULI #### [facility] [address] [address] [address] Tana North Bilirubin Ql (U) Normal [facility] Comment on above: Performed By: #### C ALCULI #### [facility] [address] [address] [address] Tana North Ca Oxalate Dihydrate Normal [facility] Comment on above: Performed By: #### C ALCULI #### [facility] [address] [address] [address] Tana North CaHPO4 (Brushite) Normal [facility] Comment on above: Performed By: #### C ALCULI #### [facility] [address] [address] [address] Tana North Calcium Bilirubinate Normal [facility] Comment on above: Performed By: #### C ALCULI #### [facility] [address] [address] [address] Tana North Calcium Carbonate Normal [facility] Comment on above: Performed By: #### C ALCULI #### [facility] [address] [address] [address] Tana North Calcium Oxalate Monohydrate 100 % Normal [facility] Comment on above: Performed By: #### C ALCULI #### [facility] [address] [address] [address] Tana North Calcium Palmitate Normal [facility] Comment on above: Performed By: #### C ALCULI #### [facility] [address] [address] [address] Tana North Calcium Phosphate Normal [facility] Comment on above: Performed By: #### C ALCULI #### [facility] [address] [address] [address] Tana North Calcium Stearate [facility] Comment on above: Performed By: #### C ALCULI #### [facility] [address] [address] [address] Tana North Carbonate Apatite [facility] Comment on above: Performed By: #### C ALCULI #### [facility] [address] [address] [address] Tana North Cellular Material Normal [facility] Comment on above: Performed By: #### C ALCULI #### [facility] [address] [address] [address] Tana North Cholesterol [facility] Comment on above: Performed By: #### C ALCULI #### [facility] [address] [place] [address] Dr. Tana North Color (U) Brown [facility] Comment on above: Performed By: #### C ALCULI #### [facility] [address] [address] [address] Tana North Comment [facility] Comment on above: Performed By: #### C ALCULI #### [facility] [address] [address] [address] Tana North Comment Comment [facility] Comment on above: Result Comment: Calc ulus received wet. Wet calculi must be dried before analysis, which delays reporting of results. Leaving calculi wet (such as water, saline, blood, urine) may lead to changes in composition. Performed By: #### C ALCULI #### [facility] [address] [address] [address] Tana North Comment: Comment Normal [facility] Comment on above: Result Comment: Kassandra zavala questions regarding Calculi Analysis contact [facility] at: [phone]. Performed By: #### C ALCULI #### [facility] [address] [place] [address] Dr. Tana North Composition Comment Normal [facility] Comment on above: Result Comment: Perc entage (Represents the % composition) Performed By: #### C ALCULI #### [facility] [address] [address] [address] Tana North Cystine Normal [facility] Comment on above: Performed By: #### C ALCULI #### [facility] [address] [address] [address] Tana North Disclaimer: Comment Normal [facility] Comment on above: Result Comment: This test was developed and its performance characteristics determined by [facility]. It has not been cleared or approved by the Food and Drug Administration. Performed By: #### C ALCULI #### [facility] [address] [place] [address] Dr. Tana North Dried Blood Normal [facility] Comment on above: Performed By: #### C ALCULI #### [facility] [address] [place] [address] Dr. Tana North Drug or Metabolite Normal [facility] Comment on above: Performed By: #### C ALCULI #### [facility] [address] [place] [address] Dr. Tana North Hydroxyapatite Normal [facility] Comment on above: Performed By: #### C ALCULI #### [facility] [address] [place] [address] Dr. Tana North Mg NH4 PO4 (Struvite) [facility] Comment on above: Performed By: #### C ALCULI #### [facility] [address] [place] [address] Dr. Tana North MgHPO4 (Newberyite) Normal [facility] Comment on above: Performed By: #### C ALCULI #### [facility] [address] [place] [address] Dr. Tana North Other component(s) Normal [facility] Comment on above: Performed By: #### C ALCULI #### [facility] [address] [address] [address] Tana North PDF . Normal [facility] Comment on above: Performed By: #### C ALCULI #### [facility] [address] [address] [address] Tana North Photo Comment Normal [facility] Comment on above: Result Comment: Phot ograph will follow under a separate cover Performed By: #### C ALCULI #### [facility] [address] [address] [address] Tana North Please note: Comment [facility] Comment on above: Result Comment: Calc joe report will follow via computer, mail or rack washer delivery. Performed By: #### C ALCULI #### [facility] [address] [address] [address] Tana North Size 3x3 [facility] Comment on above: Result Comment: Mult iple pieces received. Dimensions of the largest piece reported. Performed By: #### C ALCULI #### [facility] [address] [address] [address] Tana North Sodium Acid Urate Normal [facility] Comment on above: Performed By: #### C ALCULI #### [facility] [address] [address] [address] Tana North Source Comment [facility] Comment on above: Result Comment: Left Ureter Performed By: #### C ALCULI #### [facility] [address] [address] [address] Tana North Triamterene [facility] Comment on above: Performed By: #### C ALCULI #### [facility] [address] [address] [address] Tana North Uric Acid [facility] Comment on above: Performed By: #### C ALCULI #### [facility] [address] [address] [address] Tana North Uric Acid Dihydrate Normal [facility] Comment on above: Performed By: #### C ALCULI #### [facility] [address] [address] [address] Tana North Weight 17.0 mg Normal [facility] Comment on above: Performed By: #### C ALCULI #### [facility] [address] [address] [address] Tana North Xanthine Normal [facility] Comment on above: Performed By: #### C ALCULI #### [facility] [address] [address] [address] Tana North ECHOCARDIO M/2D COMPLETEon 0 09-02-2022 ECHOCARDIO M/2D COMPLETE Patient: MATTY LIANG Exam Date: 09/02/2022 : 1955 Gender:M Ordering : DR ARIEL YAN . Admission #: [id number] Family : Order #: [id number] CLICK HERE TO VIEW EXAM ECHOCARDIOGRAM REPORT PROCEDURE: CARDIO PULMONARY ECHOCARDIO M/2D COMP INDICATIONS: Abnormal ECG. pre-operative clearance COMPARISON: None. DESCRIPTION: COMPLETE ECHOCARDIOGRAM Real-time transthoracic echocardiography with 2D, M-mode, spectral and color flow Doppler performed. QUALITY: Technical quality was good. 74 290# BP 154/82 LEFT VENTRICLE: Normal chamber size. Moderate concentric left ventricular hypertrophy. LV EF: Normal left ventricular ejection fraction, (>55%). DIASTOLIC: Normal diastolic function. ATRIAL SEPTUM: LEFT ATRIUM: Normal chamber size. RIGHT ATRIUM: Normal chamber size. RIGHT VENTRICLE: Mild dilatation. Normal right ventricular systolic function. TRICUSPID VALVE: Normal mobility and thickness. No stenosis with no regurgitation. Doppler studies reveal mildly (35-45) elevated right sided pressures. RVSP 37 mmHg MITRAL VALVE: Mildly thickened with normal mobility. No evidence of mitral valve stenosis. Trivial mitral regurgitation. AORTIC VALVE: Normal trileaflet appearance. Mildly calcified aortic valve. Normal leaflet mobility. No evidence of aortic valve stenosis. No aortic regurgitation. AORTIC ROOT: Normal diameter and appearance. PULMONIC VALVE: Normal thickness and mobility. No stenosis. No regurgitation. PERICARDIUM: No evidence of pericardial effusion. IVC: Not well visualized. PLEURA: CONCLUSION: 1. Mild concentric left ventricular hypertrophy with normal systolic function. LVEF is 55 to 60%. 2. Normal diastolic function. 3. Mildly dilated right ventricle with normal systolic function. 4. No significant valvular dysfunction. 5. Mildly elevated right-sided pressures. 6. No pericardial effusion. Adult Echocardiography Procedure Report Left Ventricle LVEDD (3.7 - 5.6 cm): 4.85 cm LVESD (2.2 - 4.0 cm): 3.52 cm LVIVS thickness (0.6 - 1.2 cm): 1.66 cm LVPW thickness (0.5 - 1.0 cm): 1.37 cm e': 0.12 m/s E - e': 7.09 LVOT Max Gradient: 4.99 mm[Hg] Peak Velocity (LVOT): 1.12 m/s Mean Velocity (LVOT): 0.77 m/s LVOT Diameter 2.66 cm Left Ventricular Ejection Fraction: 55-60 % Left Atrium LA Volume Index (2D A2C): 83.25 ml, 83.25 ml Left Atrium Systolic Dimension: 4.68 cm Mitral Valve MV E to A Ratio: 0.83 Mitral Valve A-Wave Peak Velocity: 1.04 m/s Mitral Valve E-Wave Peak Velocity: 0.87 m/s Right Ventricle Aorta AO Root Diam: 3.78 cm Aortic Valve AoV Area (Peak Misha): 5.69 cm2, 5.85 cm2 AoV Area (VTI): 6.43 cm2, 6.75 cm2 Peak Velocity(Antegrade Flow): 1.06 m/s, 1.12 m/s Peak Gradient(Antegrade Flow): 4.52 mm[Hg], 5.01 mm[Hg] Mean Velocity(Antegrade Flow): 0.75 m/s, 0.72 m/s Mean Gradient(Antegrade Flow): 2.46 mm[Hg], 2.51 mm[Hg] Velocity Time Integral: 18.93 cm, 20.81 cm Tricuspid Valve Peak Velocity (Regurgitant Flow): 2.90 m/s Peak Velocity: 0.55 m/s Pulmonic Valve Peak Velocity: 1.08 m/s, 0.94 m/s Peak Gradient: 4.68 mm[Hg], 3.57 mm[Hg] Right Atrium Right Atrium Systolic Pressure: 46.51 ml, 46.51 ml Dictated by: Jabier Smith M.D. on 09/02/2022 at 20:06 Approved by: Jabier Smith M.D. on 09/02/2022 at 20:10 Normal [facility] XR KUB 1 VIEWon 08-25-2022 XR KUB 1 VIEW EXAMINATION: XR KUB 1 VIEW HISTORY: Kidney stone COMPARISON: No relevant comparison available. FINDINGS: KIDNEY/URETER - RIGHT: No visible renal or ureteral calcifications. KIDNEY/URETER - LEFT: No visible renal or ureteral calcifications. PELVIS: No visible ureteral stones. BOWEL: No abnormal dilation or deviation. BONES: Degenerative changes of lumbar spine. Numerous surgical sutures and anchors overlying the lower right pelvis. OTHER: Negative. No abnormal gaseous collections. IMPRESSION: 1. No appreciable urinary tract calculi. Electronically authenticated by: AYLIN MENDEZ Date: 2022-08-25 16:14 Normal [facility] Vital Signs Date Time Vital Sign Value Performing Clinician Facility 04-18-2024 08:38-0400 Blood Pressure Location Ariel YAN [facility] 04-18-2024 08:38-0400 Body temperature 98.6 [degF] Ariel YAN [facility] 04-18-2024 08:38-0400 Diastolic blood pressure 83 mm[Hg] Ariel YAN [facility] 04-18-2024 08:38-0400 Heart rate 79 /min Ariel YAN [facility] 04-18-2024 08:38-0400 Respiratory rate 18 /min Ariel YAN [facility] 04-18-2024 08:38-0400 Systolic blood pressure 138 mm[Hg] Ariel YAN [facility] 03-23-2023 09:49-0400 Blood Pressure Location Ariel YAN [facility] 03-23-2023 09:49-0400 Body temperature 98.24 [degF] Ariel YAN [facility] 03-23-2023 09:49-0400 Diastolic blood pressure 88 mm[Hg] Ariel YAN [facility] 03-23-2023 09:49-0400 Heart rate 79 /min Ariel YAN [facility] 03-23-2023 09:49-0400 Respiratory rate 16 /min Ariel YAN [facility] 03-23-2023 09:49-0400 Systolic blood pressure 137 mm[Hg] Ariel YAN [facility] 02-18-2023 14:00-0400 Body height 189.23 cm Imad Asaad Other [facility] Other 02-18-2023 14:00-0400 Body mass index (BMI) [Ratio] 34.2 kg/m2 Imad Asaad Other [facility] Other 02-18-2023 14:00-0400 Body weight 122.47 kg Imad Asaad Other [facility] Other 02-18-2023 14:00-0400 Diastolic blood pressure 86 mm[Hg] Imad Asaad Other [facility] Other 02-18-2023 14:00-0400 Systolic blood pressure 146 mm[Hg] Imad Asaad Other [facility] Other 12-24-2022 10:45-0400 Body height 189.23 cm Imad Asaad Other [facility] Other 12-24-2022 10:45-0400 Body mass index (BMI) [Ratio] 33.57 kg/m2 Imad Asaad Other [facility] Other 12-24-2022 10:45-0400 Body weight 120.2 kg Imad Asaad Other [facility] Other 12-24-2022 10:45-0400 Diastolic blood pressure 93 mm[Hg] Imad Asaad Other [facility] Other 12-24-2022 10:45-0400 Systolic blood pressure 158 mm[Hg] Imad Asaad Other [facility] Other 08-28-2022 12:30-0500 Diastolic blood pressure 82 mm[Hg] Drew Gonsalves [facility] 08-28-2022 12:30-0500 Mean blood pressure 99 mm[Hg] Derw Gonsalves [facility] 08-28-2022 12:30-0500 Systolic blood pressure 132 mm[Hg] Drew Gonsalves [facility] 08-28-2022 12:06-0500 Blood Pressure Location Drew Gonsalves [facility] 08-28-2022 12:06-0500 Diastolic blood pressure 78 mm[Hg] Drew Gonsalves [facility] 08-28-2022 12:06-0500 Heart rate 97 /min Drew Gonsalves [facility] 08-28-2022 12:06-0500 SaO2% (BldA) [Mass fraction] 96 % Drew Gonsalves [facility] 08-28-2022 12:06-0500 Systolic blood pressure 142 mm[Hg] Drew Major [facility] 08-25-2022 10:11-0500 Blood Pressure Location Ariel YAN [facility] 08-25-2022 10:11-0500 Diastolic blood pressure 88 mm[Hg] Ariel YAN [facility] 08-25-2022 10:11-0500 Heart rate 74 /min Ariel YAN [facility] 08-25-2022 10:11-0500 Respiratory rate 16 /min Ariel YAN [facility] 08-25-2022 10:11-0500 Systolic blood pressure 138 mm[Hg] Ariel YAN [facility] Encounters Encounter Date Encounter Type Care Provider Facility Start: 08-01-2024 ambulatory Ariel Alvaresi ty:[facility] Start: 07-26-2024 ambulatory Ariel Alvaresi ty:[id number] Start: 06-14-2024 End: 06-14-2024 ambulatory Jelani Donovan Facility:[facility] Start: 04-18-2024 End: 04-18-2024 ambulatory Ariel YAN Facility:[facility] Start: 04-18-2024 End: 04-18-2024 Patient encounter procedure Ariel YAN [facility] Start: 04-08-2024 End: 04-08-2024 ambulatory Jelani Donovan Facility:[facility] Start: 03-23-2023 End: 03-23-2023 Patient encounter procedure Ariel YAN [facility] Start: 02-18-2023 End: 02-18-2023 ambulatory Imad Asaad Other [facility] Other Start: 02-18-2023 Office outpatient ne w 45 minutes Imad Asaad [facility] Start: 02-13-2023 End: 02-13-2023 ambulatory Imad Asaad Other [facility] Other Start: 02-13-2023 Telephone encounter Imad Asaad [facility] Start: 12-24-2022 End: 12-24-2022 ambulatory Imad Asaad Other [facility] Other Start: 12-24-2022 Office outpatient ne w 45 minutes Imad Asaad [facility] Start: 12-24-2022 Telephone encounter Imad Asaad [facility] Start: 09-23-2022 End: 09-23-2022 Patient encounter procedure Ariel YAN [facility] Start: 09-11-2022 End: 09-11-[address] ARIEL YAN . Facility:[facility] Start: 09-03-2022 Encounter for preprocedural cardiovascular examination DR ARIEL YAN . [facility] Start: 09-02-2022 End: 09-03-[address] ARIEL AYN . Facility:[facility] Start: 09-02-2022 End: 09-03-2022 Encounter for preprocedural cardiovascular examination DR ARIEL YAN . Facility:[facility] Start: 08-29-2022 End: 10-02-2022 Pre-admission assessment Drew Gonsalves [facility] Start: 08-28-2022 End: 08-28-2022 Patient encounter procedure Drew Gonsalves [facility] Start: 08-26-2022 End: 08-27-[address] ARIEL YAN . Facility:[facility] Start: 08-25-2022 End: 08-26-[address] ARIEL YAN . Facility:[facility] Start: 08-25-2022 End: 08-25-2022 Patient encounter procedure Ariel Gus YAN [facility] Procedures Date Procedure Procedure Detail Performing Clinician Start: 01-23-2020 Total knee replacement Ariel YAN Arthroscopy of knee Ariel YAN Bone spur of left foot Leonel YAN Excision of ganglion of wrist, recurrent Ariel YAN Excision of peripher al neuroma Ariel YAN History of operative procedure on knee Imad Asaad Other History of spinal fusion [place] YAN History of tonsillectomy [place] YAN History of total kne e arthroplasty Ariel YAN Repair of left direc t inguinal hernia Ariel YAN Repair of right dire ct inguinal hernia Ariel YAN Varicose vein stripping [place] YAN Payers Date Payer Category Payer Self-pay 2023 Unknown [id number] 1961 Medicare [id number] 1961 Unknown [id number] 1955 Unknown [id number] 2.16.84 [id number] 1955 Unknown [id number] 2.16.84 [id number] 1955 Unknown [id number] 2.16.84 [id number] 1955 Unknown [id number] 2.16.84 [id number] 1953 Unknown [id number] 2.16.8 [id number] 1955 Unknown [id number] 2.16.8 [id number] Unknown [id number] 2.16.8 [id number] Unknown [id number] 2.16.8 [id number] Social History Date Type Detail Facility Tobacco smoking status [facility] Sex Assigned At Male [facility] Start: 04-18-2024 Tobacco smoking status Never s moked tobacco (finding) [facility] Tobacco smoking status Never [facility] Medical Equipment Procedure Code Equipment Code Equipment Origin al Text Equipment Identifier Dates KNEE TOTAL ARTHROPLASTY Unknown 01/23/20 Non Biological Knee L FDA Start: 01-23-2020 KNEE TOTAL ARTHROPLASTY Unknown 01/23/20 Non Biological Knee L FDA Start: 01-23-2020 KNEE TOTAL ARTHROPLASTY Unknown 01/23/20 Non Biological Knee L FDA Start: 01-23-2020 KNEE TOTAL ARTHROPLASTY Unknown 01/23/20 Non Biological Knee L FDA Start: 01-23-2020 KNEE TOTAL ARTHROPLASTY Unknown 01/23/20 Non Biological Knee L FDA Start: 01-23-2020 KNEE TOTAL ARTHROPLASTY Unknown 01/23/20 Non Biological Knee L FDA Start: 01-23-2020 KNEE TOTAL ARTHROPLASTY Unknown 01/23/20 Non Biological Knee L FDA Start: 01-23-2020 KNEE TOTAL ARTHROPLASTY Unknown 01/23/20 Non Biological Knee L FDA Start: 01-23-2020 KNEE TOTAL ARTHROPLASTY Unknown 01/23/20 Non Biological Knee L FDA Start: 01-23-2020 KNEE TOTAL ARTHROPLASTY Unknown 01/23/20 Non Biological Knee L FDA Start: 01-23-2020 KNEE TOTAL ARTHROPLASTY Unknown 01/23/20 Non Biological Knee L FDA Start: 01-23-2020 KNEE TOTAL ARTHROPLASTY Unknown 01/23/20 Non Biological Knee L FDA Start: 01-23-2020 KNEE TOTAL ARTHROPLASTY Unknown 01/23/20 Non Biological Knee L FDA Start: 01-23-2020 KNEE TOTAL ARTHROPLASTY Unknown 01/23/20 Non Biological Knee L FDA Start: 01-23-2020 KNEE TOTAL ARTHROPLASTY Unknown 01/23/20 Non Biological Knee L FDA Start: 01-23-2020 KNEE TOTAL ARTHROPLASTY Unknown 01/23/20 Non Biological Knee L FDA Start: 01-23-2020 KNEE TOTAL ARTHROPLASTY Unknown 01/23/20 Non Biological Knee L FDA Start: 01-23-2020 KNEE TOTAL ARTHROPLASTY Unknown 01/23/20 Non Biological Knee L FDA Start: 01-23-2020 KNEE TOTAL ARTHROPLASTY Unknown 01/23/20 Non Biological Knee L FDA Start: 01-23-2020 KNEE TOTAL ARTHROPLASTY Unknown 01/23/20 Non Biological Knee L FDA Start: 01-23-2020 KNEE TOTAL ARTHROPLASTY Unknown 01/23/20 Non Biological Knee L FDA Start: 01-23-2020 KNEE TOTAL ARTHROPLASTY Unknown 01/23/20 Non Biological Knee L FDA Start: 01-23-2020 KNEE TOTAL ARTHROPLASTY Unknown 01/23/20 Non Biological Knee L FDA Start: 01-23-2020 KNEE TOTAL ARTHROPLASTY Unknown 01/23/20 Non Biological Knee L FDA Start: 01-23-2020 KNEE TOTAL ARTHROPLASTY Unknown 01/23/20 Non Biological Knee L FDA Start: 01-23-2020 KNEE TOTAL ARTHROPLASTY Unknown 01/23/20 Non Biological Knee L FDA Start: 01-23-2020 KNEE TOTAL ARTHROPLASTY Unknown 01/23/20 Non Biological Knee L FDA Start: 01-23-2020 KNEE TOTAL ARTHROPLASTY Unknown 01/23/20 Non Biological Knee L FDA Start: 01-23-2020 KNEE TOTAL ARTHROPLASTY Unknown 01/23/20 Non Biological Knee L FDA Start: 01-23-2020 KNEE TOTAL ARTHROPLASTY Unknown 01/23/20 Non Biological Knee L FDA Start: 01-23-2020 KNEE TOTAL ARTHROPLASTY Unknown 01/23/20 Non Biological Knee L FDA Start: 01-23-2020 KNEE TOTAL ARTHROPLASTY Unknown 01/23/20 Non Biological Knee L FDA Start: 01-23-2020 KNEE TOTAL ARTHROPLASTY Unknown 01/23/20 Non Biological Knee L FDA Start: 01-23-2020 KNEE TOTAL ARTHROPLASTY Unknown 01/23/20 Non Biological Knee L FDA Start: 01-23-2020 KNEE TOTAL ARTHROPLASTY Unknown 01/23/20 Non Biological Knee L FDA Start: 01-23-2020 KNEE TOTAL ARTHROPLASTY Unknown 01/23/20 Non Biological Knee L FDA Start: 01-23-2020 Functional Status Date Assessment Result Facility 04-18-2024 Functional Status N/A [facility] 03-23-2023 Functional Status N/A [facility] 08-28-2022 Functional Status No [facility] 08-25-2022 Functional Status N/A [facility] Clinical Notes 08-25-2022 to 04-18-2024 Note Date & Type Note Facility 04-18-2024 Hospital Discharg e instructions Patient Education 04/18/2024 09:21:40 Transrectal Ultrasound-Guided Prostate Biopsy, Care After Transrectal Ultrasound-Guided Prostate Biopsy, Care After The following information offers guidance on how to care for yourself after your procedure. Your health care provider may also give you more specific instructions. If you have problems or questions, contact your health care provider. What can I expect after the procedure? After the procedure, it is common to have: Pain and discomfort near your rectum, especially while sitting. [place]-colored urine due to small amounts of blood in your urine. A burning feeling while urinating. Blood in your stool (feces) or bleeding from your rectum. Blood in your semen. Follow these instructions at home: Medicines Take vulw-dxt-lnzzfwa and prescription medicines only as told by your health care provider. If you were given a sedative during your procedure, it can affect you for several hours. Do not drive or operate machinery until your health care provider says that it is safe. If you were prescribed an antibiotic medicine, take it as told by your health care provider. Do not stop using the antibiotic even if you start to feel better. Activity Return to your normal activities as told by your health care provider. Ask your health care provider what activities are safe for you. Ask your health care provider when it is okay for you to resume sexual activity. You may have to avoid lifting. Ask your health care provider how much you can safely lift. General instructions Drink enough fluid to keep your urine pale yellow. Watch your urine, stool, and semen for new or increased bleeding. Keep all follow-up visits. This is important. Contact a health care provider if: You have any of the following: ?Blood clots in your urine or stool. ?Blood in your urine more than 2 weeks after the procedure. ?Blood in your semen more than 2 months after the procedure. ?New or increased bleeding in your urine, stool, or semen. ?Severe pain in your abdomen. Your urine smells bad or unusual. You have trouble urinating. Your lower abdomen feels firm. You have problems getting an erection. You have nausea or you vomit. Get help right away if: You have a fever or chills. This could be a sign of infection. You have bright red urine. You have severe pain that does not get better with medicine. You cannot urinate. Summary After this procedure, it is common to have pain and discomfort around your rectum, especially while sitting. You may have blood in your urine and stool after the procedure. It is common to have blood in your semen after this procedure. Get help right away if you have a fever or chills. This could be a sign of infection. This information is not intended to replace advice given to you by your health care provider. Make sure you discuss any questions you have with your health care provider. Document Revised: 01/06/2022 Document Reviewed: 01/06/2022 [employer] Patient Education 2023 [employer]. 04/18/2024 09:21:39 Transrectal Ultrasound-Guided Prostate Biopsy Transrectal Ultrasound-Guided Prostate Biopsy A transrectal ultrasound-guided prostate biopsy is a procedure to remove samples of prostate tissue for testing. The prostate is a walnut-sized gland that is located below the bladder and in front of the rectum. During this procedure, a small device (probe) is lubricated and put inside the rectum. The probe sends out sound waves that make a picture of the prostate and surrounding tissues (transrectal ultrasound). The images are used to help guide the process of removing the samples. The samples are taken to a lab to be checked for prostate cancer. This procedure is usually done to evaluate the prostate gland of men who have raised (elevated) levels of prostate-specific antigen (PSA), which can be a sign of prostate cancer or prostate enlargement related to aging (benign prostatic hyperplasia, or BPH). Tell a health care provider about: Any allergies you have. All medicines you are taking, including vitamins, herbs, eye drops, creams, and btsy-ior-iiepmeg medicines. Any problems you or family members have had with anesthetic medicines. Any bleeding problems you have. Any surgeries you have had. Any medical conditions you have. Any prostate infections you have had. What are the risks? Generally, this is a safe procedure. However, problems may occur, including: Prostate infection. Bleeding from the rectum. Blood in the urine. Allergic reactions to medicines. Damage to surrounding structures such as blood vessels, organs, or muscles. Difficulty passing urine. Nerve damage. This is usually temporary. What happens before the procedure? Medicines Ask your health care provider about: Changing or stopping your regular medicines. This is especially important if you are taking diabetes medicines or blood thinners. Taking medicines such as aspirin and ibuprofen. These medicines can thin your blood. Do not take these medicines unless your health care provider tells you to take them. Taking jktq-dvj-auwprke medicines, vitamins, herbs, and supplements. General instructions Follow instructions from your health care provider about eating and drinking. In most instances, you will not need to stop eating and drinking completely before the procedure. You will be given an enema. During an enema, a liquid is injected into your rectum to clear out waste. You may have a blood or urine sample taken. Ask your health care provider what steps will be taken to help prevent infection. These steps may include: ?Washing skin with a germ-killing soap. ?Taking antibiotic medicine. If you will be going home right after the procedure, plan to have a responsible adult: ?Take you home from the hospital or clinic. You will not be allowed to drive. ?Care for you for the time you are told. What happens during the procedure? An IV will be inserted into one of your veins. You will be given one or both of the following: ?A medicine to help you relax (sedative). ?A medicine to numb the area (local anesthetic). You will be placed on your left side, and your knees will be bent toward your chest. A probe with lubricated gel will be placed into your rectum, and images will be taken of your prostate and surrounding structures. Numbing medicine will be injected into your prostate. A biopsy needle will be inserted through your rectum or perineum and guided to your prostate using the ultrasound images. Prostate tissue samples will be removed, and the needle and probe will then be removed. The biopsy samples will be sent to a lab to be tested. The procedure may vary among health care providers and hospitals. What happens after the procedure? Your blood pressure, heart rate, breathing rate, and blood oxygen level will be monitored until you leave the hospital or clinic. You may have some discomfort in the rectal area. You will be given pain medicine as needed. If you were given a sedative during the procedure, it can affect you for several hours. Do not drive or operate machinery until your health care provider says that it is safe. It is up to you to get the results of your procedure. Ask your health care provider, or the department that is doing the procedure, when your results will be ready. Keep all follow-up visits. This is important. Summary A transrectal ultrasound-guided biopsy removes samples of tissue from your prostate using ultrasound-guided sound waves to help guide the process. This procedure is usually done to evaluate the prostate gland of men who have raised (elevated) levels of prostate-specific antigen (PSA), which can be a sign of prostate cancer or prostate enlargement related to aging. After your procedure, you may feel some discomfort in the rectal area. Plan to have a responsible adult take you home from the hospital or clinic, and follow up with your health care provider for your results. This information is not intended to replace advice given to you by your health care provider. Make sure you discuss any questions you have with your health care provider. Document Revised: 01/06/2022 Document Reviewed: 01/06/2022 [employer] Patient Education 2023 [employer]. 04/18/2024 09:21:34 Magnetic Resonance Imaging Magnetic Resonance Imaging Magnetic resonance imaging (MRI) is a painless test that produces detailed images of organs and tissues inside the body without using X-rays. During an MRI, strong magnets and radio waves work together to form images. MRI images may provide more details about a medical condition than X-rays, CT scans, and ultrasounds can provide. For a standard MRI, you will lie on a table that slides into a tunnel. In an open MRI, the tunnel will be open at the sides. In some cases, dye (contrast material) may be injected into your bloodstream to make the MRI images even clearer. Tell a health care provider about: Any allergies you have. All medicines you are taking, including vitamins, herbs, eye drops, creams, and zvok-ayh-ngdeumq medicines. Any surgeries you have had. Any medical conditions you have. Any metal you may have in your body. The magnets used in an MRI can cause metal objects in your body to move. Metal can also make it difficult to get clear images. Objects that may contain metal include: ?Any joint replacement (prosthesis), such as an artificial knee or hip. ?An implanted defibrillator, pacemaker, or neurostimulator. ?A metallic ear implant (cochlear implant). ?An artificial heart valve. ?A metallic object in the eye. ?Metal splinters. ?Bullet fragments. ?A port for delivering insulin or chemotherapy. Any tattoos you have. Some of the darker inks can cause problems with testing. Whether you are using a control implant such as an intrauterine device (IUD). Whether you are , may be , or are . Any fear of cramped spaces (claustrophobia). If this is a problem, it usually can be managed with medicines given prior to the MRI. What are the risks? Generally, this is a safe test. However, problems may occur, such as: If you have metal in your body and it is close to the area being tested, it may be hard to get high-quality images. If you are , you should avoid MRI tests during the first three months of . An MRI may affect an unborn baby. If dye is used: ?You may need to stop until the dye leaves your body naturally, if this applies. ?There is a risk of an allergic reaction to the dye. You can take medicines to prevent this reaction or to treat it if you have allergy symptoms. ?The dye can cause damage to your kidneys. Drinking plenty of water before and after the procedure can help prevent this problem. What happens before the procedure? You will be asked to remove all metal, including: ?A watch, jewelry (including jewelry in piercings), and other metal objects. ?Hearing aids. ?Dentures. ?An underwire bra. ?Makeup. Some makeup contains small amounts of metal. Braces and fillings are normally not a problem. If you are , ask your health care provider if you need to pump before your test. You may need to stop temporarily if dye will be used. What happens during the procedure? You may be given earplugs or headphones to listen to music. The MRI machine can be noisy. You will lie flat on your back on a long table. If dye will be used, an IV will be inserted into one of your veins. Dye will be injected into your IV and travel through your bloodstream. The table will slide into a tunnel that has magnets inside. When you are inside the tunnel, you will still be able to talk to your health care provider. You will be asked to lie very still while images are taken. Your health care provider will tell you when you can move. You may have to wait a few minutes to make sure that the images produced during the test are clear. When all images are produced, the table will slide out of the tunnel. The procedure can last from 30 minutes to over an hour. The procedure may vary among health care providers and hospitals. What can I expect after the procedure? You may be taken to a recovery area if sedation medicines were used. Your blood pressure, heart rate, breathing rate, and blood oxygen level will be monitored until you leave the hospital or clinic. If dye was used: ?It will leave your body through your urine within a day. You may be told to drink plenty of fluids to help flush the dye out of your system. ?Do not breastfeed your child until your health care provider says that this is safe. Follow these instructions at home: You may return to your normal activities right away, or as told by your health care provider. It is up to you to get your test results. Ask your health care provider, or the department that is doing the test, when your results will be ready. Keep all follow-up visits. This is important. Talk with your health care provider about what your test results mean. Summary Magnetic resonance imaging (MRI) is a painless test that produces detailed pictures of the inside of your body without using X-rays. Strong magnets and radio waves work together to form very detailed and clear images. In some cases, dye (contrast material) may be injected into your body to make MRI images even clearer. Before your MRI, be sure to tell your health care provider about any metal you may have in your body. Talk with your health care provider about what your test results mean. This information is not intended to replace advice given to you by your health care provider. Make sure you discuss any questions you have with your health care provider. Document Revised: 03/26/2022 Document Reviewed: 11/14/2020 [employer] Patient Education 2023 [employer]. Follow Up Care 03/23/2023 10:55:06 With:JUANA HOGAN, Ariel Weber, URL Address: [facility] [address], [place] [address]- [phone] When: Unknown [facility] Kevin 04-18-2024 Note Patient Education Oncology Transrectal Ultrasound-Guided Prostate Biopsy, Care After The following information offers guidance on how to care for yourself after your procedure. Your health care provider may also give you more specific instructions. If you have problems or questions, contact your health care provider. What can I expect after the procedure? After the procedure, it is common to have: ? Pain and discomfort near your rectum, especially while sitting. ? [place]-colored urine due to small amounts of blood in your urine. ? A burning feeling while urinating. ? Blood in your stool (feces) or bleeding from your rectum. ? Blood in your semen. Follow these instructions at home: Medicines ? Take zcqn-qar-qppjktm and prescription medicines only as told by your health care provider. ? If you were given a sedative during your procedure, it can affect you for several hours. Do not drive or operate machinery until your health care provider says that it is safe. ? If you were prescribed an antibiotic medicine, take it as told by your health care provider. Do not stop using the antibiotic even if you start to feel better. Activity ? Return to your normal activities as told by your health care provider. Ask your health care provider what activities are safe for you. ? Ask your health care provider when it is okay for you to resume sexual activity. ? You may have to avoid lifting. Ask your health care provider how much you can safely lift. General instructions ? Drink enough fluid to keep your urine pale yellow. ? Watch your urine, stool, and semen for new or increased bleeding. ? Keep all follow-up visits. This is important. Contact a health care provider if: ? You have any of the following: ? Blood clots in your urine or stool. ? Blood in your urine more than 2 weeks after the procedure. ? Blood in your semen more than 2 months after the procedure. ? New or increased bleeding in your urine, stool, or semen. ? Severe pain in your abdomen. ? Your urine smells bad or unusual. ? You have trouble urinating. ? Your lower abdomen feels firm. ? You have problems getting an erection. ? You have nausea or you vomit. Get help right away if: ? You have a fever or chills. This could be a sign of infection. ? You have bright red urine. ? You have severe pain that does not get better with medicine. ? You cannot urinate. Summary ? After this procedure, it is common to have pain and discomfort around your rectum, especially while sitting. ? You may have blood in your urine and stool after the procedure. ? It is common to have blood in your semen after this procedure. ? Get help right away if you have a fever or chills. This could be a sign of infection. This information is not intended to replace advice given to you by your health care provider. Make sure you discuss any questions you have with your health care provider. Document Revised: 01/06/2022 Document Reviewed: 01/06/2022 [employer] Patient Education ? 2023 [employer]. Transrectal Ultrasound-Guided Prostate Biopsy A transrectal ultrasound-guided prostate biopsy is a procedure to remove samples of prostate tissue for testing. The prostate is a walnut-sized gland that is located below the bladder and in front of the rectum. During this procedure, a small device (probe) is lubricated and put inside the rectum. The probe sends out sound waves that make a picture of the prostate and surrounding tissues (transrectal ultrasound). The images are used to help guide the process of removing the samples. The samples are taken to a lab to be checked for prostate cancer. This procedure is usually done to evaluate the prostate gland of men who have raised (elevated) levels of prostate-specific antigen (PSA), which can be a sign of prostate cancer or prostate enlargement related to aging (benign prostatic hyperplasia, or BPH). Tell a health care provider about: ? Any allergies you have. ? All medicines you are taking, including vitamins, herbs, eye drops, creams, and bmzg-idu-rixzzfk medicines. ? Any problems you or family members have had with anesthetic medicines. ? Any bleeding problems you have. ? Any surgeries you have had. ? Any medical conditions you have. ? Any prostate infections you have had. What are the risks? Generally, this is a safe procedure. However, problems may occur, including: ? Prostate infection. ? Bleeding from the rectum. ? Blood in the urine. ? Allergic reactions to medicines. ? Damage to surrounding structures such as blood vessels, organs, or muscles. ? Difficulty passing urine. ? Nerve damage. This is usually temporary. What happens before the procedure? Medicines Ask your health care provider about: ? Changing or stopping your regular medicines. This is especially important if you are taking diabetes medicines or blood thinners. ? Taking medici (more content not included)... [facility] 03-23-2023 Hospital Discharg e instructions Patient Education 03/23/2023 10:35:30 Hydronephrosis Hydronephrosis Hydronephrosis is the swelling of one or both kidneys due to a blockage that stops urine from flowing out of the body. Kidneys filter waste from the blood and produce urine. This condition can lead to kidney failure and may become life-threatening if not treated promptly. What are the causes? In infants and children, common causes include problems that occur when a baby is developing in the womb. These can include problems in the kidneys or in the tubes that drain urine into the bladder (ureters). In adults, common causes include: Kidney stones. . A tumor or cyst in the abdomen or pelvis. An enlarged prostate gland. Other causes include: Bladder infection. Scar tissue from a previous surgery or injury. A blood clot. Cancer of the prostate, bladder, uterus, ovary, or colon. What are the signs or symptoms? Symptoms of this condition include: Pain or discomfort in your side (flank) or abdomen. Swelling in your abdomen. Nausea and vomiting. Fever. Pain when passing urine. Feelings of urgency when you need to urinate. Urinating more often than normal. In some cases, you may not have any symptoms. How is this diagnosed? This condition may be diagnosed based on: Your symptoms and medical history. A physical exam. Blood and urine tests. Imaging tests, such as an ultrasound, CT scan, or MRI. A procedure to look at your urinary tract and bladder by inserting a scope into the urethra (cystoscopy). How is this treated? Treatment for this condition depends on where the blockage is, how long it has been there, and what caused it. The goal of treatment is to remove the blockage. Treatment may include: Antibiotic medicines to treat or prevent infection. A procedure to place a small, thin tube (stent) into a blocked ureter. The stent will keep the ureter open so that urine can drain through it. A nonsurgical procedure that crushes kidney stones with shock waves (extracorporeal shock wave lithotripsy). If kidney failure occurs, treatment may include dialysis or a kidney transplant. Follow these instructions at home: Take zpeq-yjw-hoxqxri and prescription medicines only as told by your health care provider. If you were prescribed an antibiotic medicine, take it exactly as told by your health care provider. Do not stop taking the antibiotic even if you start to feel better. Rest and return to your normal activities as told by your health care provider. Ask your health care provider what activities are safe for you. Drink enough fluid to keep your urine pale yellow. Keep all follow-up visits. This is important. Contact a health care provider if: You continue to have symptoms after treatment. You develop new symptoms. Your urine becomes cloudy or bloody. You have a fever. Get help right away if: You have severe flank or abdominal pain. You cannot drink fluids without vomiting. Summary Hydronephrosis is the swelling of one or both kidneys due to a blockage that stops urine from flowing out of the body. Hydronephrosis can lead to kidney failure and may become life-threatening if not treated promptly. The goal of treatment is to remove the blockage. It may include a procedure to insert a stent into a blocked ureter, a procedure to break up kidney stones, or taking antibiotic medicines. Follow your health care provider's instructions for taking care of yourself at home, including instructions about drinking fluids, taking medicines, and limiting activities. This information is not intended to replace advice given to you by your health care provider. Make sure you discuss any questions you have with your health care provider. Document Revised: 10/30/2020 Document Reviewed: 10/30/2020 [employer] Patient Education 2022 [employer]. Follow Up Care 09/23/2022 11:42:03 With:JUANA HOGAN, Ariel Weber, URL Address: [facility] [address] , [place] [address]- [phone] When: Unknown Comments:1 yr w/ VIDAL [facility] 02-18-2023 Evaluation note Encounter Date Diagnosis Assessment Notes Jan, History of colon polyps (ICD-10 - Z86.010) Patient to schedule colonoscopy in Apr 2023 Jan, Family history of colon cancer (ICD-10 - Z80.0) Jan, Internal hemorrhoids (ICD-10 - K64.8) Jan, Constipation (ICD-10 - K59.00) Patient may use dulcolax as needed [facility] Other 05-31-2023 Evaluation note* Encounter Date Diagnosis Assessment Notes Treatment Notes Treatment Clinical Notes November, Rectal bleeding (ICD-10 - K62.5) [facility] Other 02-28-2023 Hospital Discharge instructions Patient Education 09/23/2022 11:38:50 [facility] - Cystoscopy with Stent Removal Discharge Instructions (CUSTOM) Cystoscopy with Stent Removal Voiding after the procedure: there may be some pain, burning, urgency, frequency and blood tinged urine following the procedure. These symptoms usually resolve within 2-5 days. Drink the amount of fluid it takes to keep the urine pink to yellow or clear in color. Drinking enough water and fluids will help to ease any discomfort after your procedure. If you are having problems that seem out of the ordinary, please call. If unable to contact your physician and you feel it is an emergency, go to the nearest emergency room or call 911 Diet you may resume your normal diet. Activity you may resume your normal activities Call if you have a fever over 100 degrees. Follow Up Care 09/16/2022 10:31:51 With:Ariel YAN Address: [facility] [address] [place] [address]- Business (1) When:03/23/2023 11:38:35 Comments:With a [facility]02-16-2023 NoteOP Note OPERATION DATE: 09/11/2022 PREOPERATIVE DIAGNOSIS: Left ureteral calculus. POSTOPERATIVE DIAGNOSIS: Left ureteral calculus. PROCEDURE: 1. Cystoscopy. 2. Left rigid ureteral dilation. 3. Left ureteroscopy. 4. Holmium laser lithotripsy of a large hard left ureteral calculus. 5. Stone basket extraction of left ureteral calculus. 6. Placement of 6-Filipino variable length left ureteral stent. 7. Clot evacuation. ANESTHESIA: General by LMA, Enedina Nunez CRNA COMPLICATIONS: None. INDICATIONS: Mr. Pritchard is a 66-year-old gentleman with a large, 12 mm distal left ureteral calculus that he is unable to pass. He now presents for cystoscopy and definitive ureteroscopic stone manipulation with possible left stent placement. He has signed and informed consent after all the risks were explained to him. PROCEDURE: Patient was brought to the operating room and placed on the operating room table in the supine position. SCDs were placed on his lower extremities and turned on and functioning during the entire case. Timeout was done by all parties in the room. We all agreed upon the patient's identification and the planned procedures for the patient. General anesthesia was then administered via LMA. He was then repositioned into the modified dorsolithotomy position. All pressure points were satisfactorily padded. Genitalia were sterilely prepped and draped in the usual fashion. I started by passing a 22-Filipino Olympus cystoscope per urethra and into the bladder. The anterior urethra was normal. The prostatic urethra showed trilobar obstruction. He had a rather capacious median lobe. I then did cystoscopy in the bladder and found no evidence of any tumors or stones. His ureters were tucked under the median lobe which protruded into the bladder. I then passed a Glidewire through the scope and cannulated the left ureter with the wire, and the wire showed that there was rather severe J-hooking of the ureter. I was able to get the wire proximal to the stone and into the kidney. I then used an 8 and 10-Filipino rigid dilator to dilate the distal ureter. The scope was then removed. I then passed a semi-rigid ureteroscope adjacent to the wire, through the urethra, into the bladder, and into the left ureter. The severe J-hooking and the protruding median lobe made ureteroscopy very difficult. Eventually, I was able to get up the ureter and to the stone. The stone was very large. I passed a 365 angstrom holmium laser fiber through the scope and made contact with the stone. I then did laser lithotripsy on the dust mode at 10 gilliam continuously. The stone turned out to be extremely dense. It very slowly dusted. I had to turn the power up to a maximum of 15 gilliam. We did generate some pieces along the way. I then used a Zero-Tip Nitinol basket and engaged several pieces and dumped them in the base of the bladder. By this time, there were quite a few clots in the bladder from the median lobe of the prostate bleeding. The ureter was extremely swollen also. It was very difficult to get the scope back up the ureter to the stone. Eventually, I did, and I then decided I needed to totally dust the remaining stone, because I would not be able to get back up the ureter a third time. The dusting setting was started, and we finished dusting the stone entirely at 15 gilliam. We then removed the ureteroscope. I then backloaded the cystoscope over the wire and passed it into the bladder. I then slid a 6-Filipino variable length stent over the wire, up into the kidney. The wire was removed and there were good curls in the kidney and in the bladder. One could not see in the bladder due to clots. I then used the Mocapay evacuator and did clot evacuation. I then was able to get the stone pieces from the base of the bladder out. These were sent for stone analysis. The bladder was drained of its contents and the scope was then removed. He was then transferred to a rwarren bed and wheeled to PACU in stable condition.[id number] + Plan note Future Scheduled Tests Radiology* Echo Transthoracic Complete 08/28/22 [facility]01-30-2023 Hospital Discharge instructions Patient Education 08/25/2022 08:19:37 Dietary Guidelines to Help Prevent Kidney Stones Dietary Guidelines to Help Prevent Kidney Stones Kidney stones are deposits of minerals and salts that form inside your kidneys. Your risk of developing kidney stones may be greater depending on your diet, your lifestyle, the medicines you take, and whether you have certain medical conditions. Most people can reduce their chances of developing kidney stones by following the instructions below. Depending on your overall health and the type of kidney stones you tend to develop, your dietitian may give you more specific instructions. What are tips for following this plan? Reading food labels Choose foods with no salt added or low-salt labels. Limit your sodium intake to less than 1500 mg per day. Choose foods with calcium for each meal and snack. Try to eat about 300 mg of calcium at each meal.Foods that contain 200 500 mg of calcium per serving include: ?8 oz (237 ml) of milk, fortified nondairy milk, and fortified fruit juice. ?8 oz (237 ml) of kefir, yogurt, and soy yogurt. ?4 oz (118 ml) of tofu. ?1 oz of cheese. ?1 cup (300 g) of dried figs. ?1 cup (91 g) of cooked broccoli. ?1 3 oz can of sardines or mackerel. Most people need 1000 to 1500 mg of calcium each day. Talk to your dietitian about how much calciumis recommended for you. Shopping Buy plenty of fresh fruits and vegetables. Most people do not need to avoid fruits and vegetables, even if they contain nutrients that may contribute to kidney stones. When shopping for convenience foods, choose: ?Whole pieces of fruit. ?Premade salads with dressing on the side. ?Low-fat fruit and yogurt smoothies. Avoid buying frozen meals or prepared deli foods. Look for foods with live cultures, such as yogurt and kefir. Cooking Do not add salt to food when cooking. Place a salt shaker on the table and allow each person to addhis or her own salt to taste. Use vegetable protein, such as beans, textured vegetable protein (TVP), or tofu instead of meat in pasta, casseroles, and soups. Meal planning Eat less salt, if told by your dietitian. To do this: ?Avoid eating processed or premade food. ?Avoid eating fast food. Eat less animal protein, including cheese, meat, poultry, or fish, if told by your dietitian. To dothis: ?Limit the number of times you have meat, poultry, fish, or cheese each week. Eat a diet free of meat at least 2 days a week. ?Eat only one serving each day of meat, poultry, fish, or seafood. ?When you prepare animal protein, cut pieces into small portion sizes. For most meat and fish, one serving is about the size of one deck of cards. Eat at least 5 servings of fresh fruits and vegetables each day. To do this: ?Keep fruits and vegetables on hand for snacks. ?Eat 1 piece of fruit or a handful of berries with breakfast. ?Have a salad and fruit at lunch. ?Have two kinds of vegetables at dinner. Limit foods that are high in a substance called oxalate. These include: ?Spinach. ?Rhubarb. ?Beets. ?Potato chips and malay fries. ?Nuts. If you regularly take a diuretic medicine, make sure to eat at least 1 2 fruits or vegetables high in potassium each day. These include: ?Avocado. ?Banana. ?[place], prune, carrot, or tomato juice. ?Baked potato. ?Cabbage. ?Beans and split peas. General instructions Drink enough fluid to keep your urine clear or pale yellow. This is the most important thing you can do. Talk to your health care provider and dietitian about taking daily supplements. Depending on your health and the cause of your kidney stones, you may be advised: ?Not to take supplements with vitamin C. ?To take a calcium supplement. ?To take a daily probiotic supplement. ?To take other supplements such as magnesium, fish oil, or vitamin B6. Take all medicines and supplements as told by your health care provider. Limit alcohol intake to no more than 1 drink a day for non women and 2 drinks a day for men. One drink equals 12 oz of beer, 5 oz of wine, or 1 oz of hard liquor. Lose weight if told by your health care provider. Work with your dietitian to find strategies and an eating plan that works best for you. What foods are not recommended? Limit your intake of the following foods, or as told by your dietitian. Talk to your dietitian about specific foods you should avoid based on the type of kidney stones and your overall health. Grains Breads. Bagels. Rolls. Baked goods. Salted crackers. Cereal. Pasta. Vegetables Spinach. Rhubarb. Beets. Canned vegetables. Pickles. Olives. Meats and other protein foods Nuts. Nut butters. Large portions of meat, poultry, or fish. Salted or cured meats. Deli meats. Hotdogs. Sausages. Dairy Cheese. Beverages Regular soft drinks. Regular vegetable juice. Seasonings and other foods Seasoning blends with salt. Salad dressings. Canned soups. Soy sauce. Ketchup. Barbecue sauce. Canned pasta sauce. Casseroles. Pizza. Lasagna. Frozen meals. Potato chips. Filipino fries. Summary You can reduce your risk of kidney stones by making changes to your diet. The most important thing you can do is drink enough fluid. You should drink enough fluid to keep your urine clear or pale yellow. Ask your health care provider or dietitian how much protein from animal sources you should eat eachday, and also how much salt and calcium you should have each day. This information is not intended to replace advice given to you by your health care provider. Make sure you discuss any questions you have with your health care provider. Document Released: 11/07/2011 Document Revised: 11/02/2019 Document Reviewed: 06/23/2017 [employer] Patient Education 2020 [employer]. Follow Up Care 08/25/2022 08:16:40 With:JUANA HOGAN, Ariel Weber, URL Address: [facility] [address], [place] [address]- When: Unknown [facility] evaluation + Plan note No data available for this section [facility] evaluation + Plan note Future Appointments Appointment Date:03/23/2023 09:30:00 AM Scheduled Provider:Ariel YAN MD Location:[facility] Future App[facility]ments Appointment Date:03/21/2024 09:15:00 AM Scheduled Provider:Ariel YAN MD Location:[facility] Appointment Type:URO Office Visit [facility] evaluation noteNo InformationNort [facility] Other History general Narrative - Reported* Type Description Date Surgical History tonsillectomy and adenoidectomy Surgical History Foot Surgery Surgical History bone spur Surgical History Rt knee replacement- Ramiro [facility] [place] 2013 Surgical History hernia- bilateral Surgical History wrist surgery Surgical History Lt ankle Surgical History Back surgery- spinal fusion 201 2 Surgical History LLE vein ablation & stab phlebe ctomy 04-06-2019 Surgical History KIDNEY STONE 08/2022 Hospitalization History see above Hospitalization History [facility] IN THE LAST YEAR 11/2022 [place] [facility] Other Hospital Discharge instructions No data available for this section [facility] No data available for this section [facility] Kevin Summary Purpose Family History No Family History Records Found No data available for this section No Family History Records FoundNo Family History Records Found Advance Directives No Advanced Directives Records FoundNo Advanced Directives Records FoundNo Advanced Directives Records Found Additional Source Comments Patient Care team informatio n (unrecognized section and content) Personnel Name: JELANI DONOVAN MD Address: Address: [address] [place] [address] Personnel Name: JELANI DONOVAN MD Address: Address: [address] [place] [address] Personnel Name: JELANI DONOVAN MD Address: Address: [address] [place] [address] Personnel Name: JELANI DONOVAN MD Address: Address: [address] [place] [address] Personnel Name: JELANI DONOVAN MD Address: Address: [address] [place] [address] (unrecognized sect ion and content) No Status Records FoundNo Status Records FoundNo Status Records Found INFORMATION SOURCE (unrecogn ized section and content) DATE CREATED AUTHOR 09/19/2022 [facility] DATE CREATED AUTHOR AUTHOR'S ORGANIZ ATION 06/21/2024 [facility] DATE CREATED AUTHOR AUTHOR'S ORGANIZ ATION 07/10/2024 [facility] REASON FOR VISIT (unrecogniz ed section and content) PATIENT IS HERE WITH COMPLAI NTS OF HEMORRHOIDS AND RECTAL BLEEDING. CONSTIPATION STARTED AROUND THE FIRST OF THE YEAR.PRESCRIPTIONPOSTING SHEETTALK ABOUT COLONOSCOPY FOR RECORDS PERTAINING TO PATIENTS WHO ARE OR HAVE BEEN ENROLLED IN A CHEMICAL DEPENDENCY/SUBSTANCEABUSE PROGRAM, SOME INFORMATION MAY BE OMITTED. This clinical summary was aggregated from multiple sources. Caution should be exercised in using it in the provision of clinical care. This summary normalizes information from multiple sources, and as a consequence, information in this document may materially change the coding, format and clinical context of patient data. In addition, data may be omitted in some cases. CLINICAL DECISIONS SHOULD BE BASED ON THE PRIMARY CLINICAL RECORDS. [employer] provides no warranty or guarantee of the accuracy or completeness of information in this document.
[2024-07-18] MEDS: GENTAMICIN SULFATE 80 MG/2 ML VIAL IM (07:45)
--- NOTE | 2024-07-18 07:56 | US_ITS ---
The [address] [address] Patient Name: MATTY LIANG MRN: [id number] date: 1955 Sex: M Assigned Patient Location: [facility] Current Patient Location: [facility] Accession/Order Number: [id number] Exam Date: 07/18/2024 08:00 Report Date: 07/18/2024 10:31 At the request of: TEODORA YAN Procedure: US prostate EXAMINATION: US prostate HISTORY: surgery COMPARISON: No relevant comparison available. TECHNIQUE: Ultrasound exam for the prostate with an endorectal transducer was performed utilizing real-time and color duplex Doppler sonography. FINDINGS: Ultrasound guided transrectal prostate biopsy performed by Dr. Yan. The prostate gland measures 4.4 x 4.1 x 5.9 cm a volume of 56 mL The prostate gland is enlarged in size heterogeneous in echotexture with no focal mass. Scattered areas of hyper echogenicity suggests calcifications. Needle is seen traversing multiple portions of the prostate gland US/US prostate IMPRESSION: Images from ultrasound-guided transrectal prostate biopsy Electronically authenticated by: WILFREDO SEGURA Date: 07/18/2024 10:31
[2024-07-18] MEDS: LIDOCAINE 2% JELLY 20 ML UR (08:14)
[2024-07-18] MEDS: LIDOCAINE HCL 1% 100 MG/10 ML MDV INJ (08:18)
[2024-07-18 08:19] VITALS: BP 193/97; PULSE 98; O2SAT 95
[2024-07-18 08:30] VITALS: BP 195/94; PULSE 91; O2SAT 97
--- NOTE | 2024-07-18 08:32 | PM.URSON ---
Urology Surgery Operative Note Operative Note Procedure Date: 07/18/24 Time Out Performed: yes Pre-op Diagnosis: Elevated PSA Post-op Diagnosis: same as pre-op Procedures performed: 1. Transrectal ultrasound of the prostate. 2. Prostate needle biopsies Anesthesia: local and other (Shaq prostatic block with 1% lidocaine local) Primary Surgeon: Ariel Yan Complications: None Estimated blood loss (mL): 10 Findings: No hypoechoic areas in the peripheral zones Specimens: Prostate needle biopsies. 8 from each side Indications for Procedures: This gentleman has a rising PSA. His most recent PSA was 5.8. He has no evidence of infection. He has a negative MRI of the prostate. He now presents for transrectal ultrasound with biopsies of the prostate. He has signed an informed consent after risks were explained. Some of these risks include bleeding, infection, urosepsis, anesthesia to name a few. Detailed description of Procedure: The patient was kept on his gurney bed and brought into the endoscopy suite. He was placed in the left lateral decubitus position. Timeout was done by all parties in the room. 2% lidocaine gel was passed per rectum after the rectum was swabbed with Betadine. The ultrasound probe was passed per rectum. The volume was calculated to be 56 g. No calcifications or hypoechoic areas were noted. While using 1% lidocaine we then did a Shaq prostatic block in the usual fashion. We then began taking biopsies from the left base going towards the apex. We divided it up into 4 levels and from each level took 2 biopsies. A similar maneuver was done on the right side where we also obtained 8 satisfactory cores. The probe was then removed. He was then discharged to home.
== END 2024-07-18 08:40 | disposition home or self-care (01) ==
PROVIDERS: PCP Family Medicine; Visit Provider Urology
PROC: (CPT 55700; principal; 2024-07-18 08:00)
DX: C61 Malignant neoplasm of prostate (principal); R97.20 Elevated prostate specific antigen [PSA]; N40.1 Benign prostatic hyperplasia with lower urinary tract symptoms; E78.5 Hyperlipidemia, unspecified; Z87.442 Personal history of urinary calculi
CPT/HCPCS: 55700; 76872; J1580

== ENCOUNTER 2025-06-16 07:50 | Outpatient (OUT) | payer MEDICARE, OTHER, SELFPAY ==
--- OUTSIDE RECORDS SUMMARY | 2025-06-16 07:53 | XMS_ITS | Clinical Summary ---
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 Role Phone Jelani Donovan MD Primary Care Provider Allergies Active AllergyReactionsCriticalityNoted DateCommentsBacitracin-Polymyxin B 02/03/2024 Medications MedicationSigDispense QuantityRefillsLast FilledStart DateEnd DateStatus atorvastatin (Lipitor) 40 MG tablet Take 40 mg by mouth Daily11/29/2023ctive amitriptyline (Elavil) 25 MG tablet TAKE 2 TABLETS BY MOUTH EVERY DAY AT BEDTIMEActive diclofenac (Voltaren) 75 MG EC tablet Take 75 mg by mouth DailyActive temazepam (Restoril) 30 MG capsule TAKE 1 CAPSULE BY MOUTH EVERYDAY AT BEDTIMEActive sildenafil (Viagra) 50 MG tablet TAKE 1 TABLET BY MOUTH ONCE DAILY PFIJDD3507/24/2024ctive ciprofloxacin (Cipro) 500 MG tablet 5Active Active Problems ProblemNoted DateDiagnosed DateStatus post reverse total arthroplasty of right udpmigwn74/25/2025Localized primary osteoarthritis of right shoulder region 5Chronic right shoulder pain10/18/2024 Encounters DateTypeDepartmentCare TxohWtezpxphloo59/07/2025 11:00 AM EDTOffice Visit [facility] [address] [place] [address] Josiah Knowles DO S/P reverse total shoulder arthroplasty, right (Primary Dx)05/02/2025 8:05 AM EDTAncillary Procedure [facility] [address] [place] [address] 05/02/2025Travelfrom Last 3 Months Social History Tobacco UseTypesPacks/DayYears UsedDateSmoking Tobacco: NeverSmokeless Tobacco: Never Tobacco Cessation:Counseling Given: Not Answered Sex and Gender InformationValueDate RecordedSex Assigned at BirthNot on file Legal AoaSjvj0710/08/2022 6:43 PM EDTGender IdentityNot on fileSexual Orientation Not on file Last Filed Vital Signs Vital SignReadingTime TakenCommentsBlood Otpwodzf814/8502/02/2023 12:00 PM EST Pulse--Zorgfmcxrrp18.3 ??C (97.4 ??F)02/03/2024 8:41 AM EDTRespiratory Rate-- Oxygen Saturation--Inhaled Oxygen Concentration--Zstmls933 kg (286 lb)05/02/2025 10:46 AM HZJGjsbui982.9 cm (6')05/02/2025 10:46 AM EDTBody Mass Index38.79 05/02/2025 10:46 AM EDT Plan of Treatment DateTypeDepartmentCare Team (Latest Contact Info)Wixwhnwmicm69/03/2026 11:00 AM ESTOffice Visit [facility] [address] [place] [address] Josiah Knowles, [address] [place] [address] Health MaintenanceDue DateLast DoneCommentsCT Rvodbvtyozfy15/01/1954Colonoscopy 4Colorectal Cancer Gymxnelau74/01/1954FIT-DNA1953FIT1953 FOBT1953Sicfhystwrhow10/01/1954Pneumococcal Vaccine: 65+ Years (2 of 2 - PCV)COVID-19 Vaccine (2024- season)2025 08/30/2024, 04/23/2023, 02/27/2022, Additional history existsInfluenza Vaccine (#1)5008/30/2024, 04/23/2023, 05/01/2022, Additional history exists Procedures Procedure NamePriorityDate/TimeAssociated DiagnosisCommentsXR SHOULDER 2+ VIEWS LJTGLGpgodcg19/07/2025 8:03 AM EDT S/P reverse total shoulder arthroplasty, right from Last 3 Months Results * XR shoulder 2+ views right (05/02/2025 8:03 AM EDT)Anatomical RegionLaterality ModalityUpper Extremities, ShoulderRightRadiographic ImagingSpecimen (Source) Anatomical Location / LateralityCollection Method / VolumeCollection Time Received Time Narrative 05/04/2025 4:03 PM EDT Imaging Result: Two view x-rays taken in the [facility] office saved to the permanent record shows stable position and alignment of the reverse arthroplasty. ?? There is no sign of loosening or infection. ?? Authorizing ProviderResult TypeResult StatusMichael Stefania Knowles DOIMG XR PROCEDURES Final Result from Last 3 Mon[place] [id number] Care Teams Team MemberRelationshipSpecialtyStart DateEnd Date Jelani Donovan MD [address] [place] [address] [facility]01/11/24
--- OUTSIDE RECORDS SUMMARY | 2025-06-16 07:53 | XMS_ITS | Clinical Summary ---
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 Role Phone Unavailable Primary Care Provider Unavailabl e Allergies No known active allergies Medications No known medications Active Problems ProblemNoted DateDiagnosed EhnrGafmjyonou14/07/2013Spondylolisthesis of lumbosacral gucrcq3901/01/2012DDD (degenerative disc disease), fagwpx1501/01/2012 Social History Tobacco UseTypesPacks/DayYears UsedDateSmoking Tobacco: NeverSmokeless Tobacco: NeverAlcohol UseStandard Drinks/WeekCommentsYes0 (1 standard drink = 0.6 oz pure alcohol)Sex and Gender InformationValueDate RecordedSex Assigned at BirthNot on fileLegal GrxYkmb71/02/2012 10:15 AM ESTGender IdentityNot on fileSexual OrientationNot on file Last Filed Vital Signs Vital SignReadingTime TakenCommentsBlood Atyxhfiq589/8904 11:13 AM EDT Almqs3969 11:13 AM ZXWPikhblttflk68.8 ??C (96.5 ??F)03/19/2012 2:40 PM EDTRespiratory Edbr775210/31/2015 11:13 AM EDTOxygen Jijkkqpocq42%03/19/2012 2:40 PM EDTInhaled Oxygen Concentration--Gbfqha537.9 kg (266 lb 8.6 oz)04/29/2012 8:19 AM KMRBudmqp364 cm (6' 2 )04/29/2012 8:19 AM EDTBody Mass Index34.22 04/29/2012 8:19 AM EDT Plan of Treatment Health MaintenanceDue DateLast DoneCommentsAnxiety Bqhfljlzi16/01/1972Depression Xoharnopw52/01/1972Hepatitis C Enntlysvb10/01/1972DTaP,Tdap,Td Vaccine (1 - Tdap)1972Lipid Jytytwnyd66/01/1989CT Fhqjzgzdfoja13/01/1999Cologuard (FIT-DNA)10/25/19989919Rewipywfozu79/01/1999Colorectal Cancer Yrfutfhws39/01/1999 Fecal Occult Blood10/25/19987751Kkbmqpcyyuagv26/01/1999Pneumococcal Vaccine: 50+ (1 of 1 - PCV)10/26/2003Shingrix Vaccine (1 of 2)10/26/2003Diabetes Screening , 03/04/2012dvance Directive Yzkfswiuhi46/01/2025ovid-19 Vaccine (1 - season)2025Influenza Vaccine (#1)2025RSV Vaccine (1 - 1-dose 75+ series)2028 Medical Devices ImplantedTypeAreaManufacturerDevice IdentifierShelf Expiration DateModel / Serial / LotGraft Bn Infs Rhbmp-2 2.8ml Sm - [id number] Implanted:Qty: 1 on 03/18/2012 at [facility]/A: Spine - Lumbar [employer] SOFOR DAN05/27/[id number] / / [id number]:naGraft Bn Canc 15ml Allgrft - [id number] Implanted:Qty: 1 on 03/18/2012 at [facility]/A: Spine - LumbarMTF 12/05/[id number] / [id number] / NADescription:rjKob-Fq-E-Kind Implant - [id number] Implanted:Qty: 1 on 03/18/2012 at [facility]/A: Spine - Lumbar [employer] SPINE.802.016S / / [id number]:synfix-lr 26 mm depth 32mm width 12mm height 8 degree ster Pnx-Zv-F-Kind Implant - [id number] [facility] - Lumbar [employer] [id number] / / NADescription:4 x 25 mm [id number] SCREW Procedures Procedure NamePriorityDate/TimeAssociated DiagnosisCommentsBASIC METABOLIC PANEL Hlhzngu4603/19/2012 1:12 AM EDT from Last 3 Months or Most Recently Relevant to Health Maintenance Results * (ABNORMAL) BASIC METABOLIC PNL (03/19/2012 1:12 AM EDT)ComponentValueRef Range Test MethodAnalysis TimePerformed AtPathologist OrvtjqzgmDferzdw230(H)65 - 100 mg/dLPREMIER HEALTH MAIN LABORATORYBUN8(L)10 - 25 mg/dLMORROW COUNTY HOS[facility]ITAL LABORATORYCreatinine0.720.70 - 1.40 mg/dLMORROW COUNTY H[facility]ITAL LAB[facility]ORY Ebsejt387202 - 146 mmol/LCCLEVELAND CLINIC [facility]IN[facility] LABORATORYPotassium4.23.5 - 5.0 mmol/LCBARNESVILLE HOSPITAL [facility]IN HCNZKRWMNIVrbtywvw80031 - 110 mmol/LCCLEVELAND CLINIC [facility] POIN[facility] ZTNJSFOQZMSI39261 - 32 mmol/LCBARNESVILLE HOSPITAL MAIN LABORATORYAnion Gap80 - 15 mmol/LCBARNESVILLE HOSPITAL MAIN LABORATORYCalcium7.8(L)8.5 - 10.5 mg/dL [facility] LABORATORYSpecimen (Source)Anatomical Location / LateralityCollection Method / VolumeCollection TimeReceived TimeBlood specimen (specimen)BLOOD SPECIMEN / Eweqyvb3503/19/2012 1:12 AM EDT03/19/2012 1:13 AM EDT Narrative Authorizing ProviderResult TypeResult StatusRobert St. [facility] LainLABORATORYFinal ResultPerforming OrganizationAddressCity/State/ZIP CodePhone Number [facility] [address] [place] [address] from Last 3 Months or Most Recently Relevant to Health Maintenance Insurance
--- OUTSIDE RECORDS SUMMARY | 2025-06-16 07:56 | XMS_ITS | CCD ---
Author Organization [facility] Care Team Providers Care Fitness Plan Coordinator Name Role Phone MILES DONOVAN Primary Care Physician [phone] JUA[address] ., DR ARAIZA Admitting Unavailable ARIAS ., DR ARAIZA Attending Unavailable ZION, DR AQUINO Primary Care Unavailable ARIAS ., DR ARAIZA Consulting Unavailable CECE II, LAUREN Consulting Unavailable KOMA, ENEDINA Consulting Unavailable ARIAS ., DR ARAIZA Admitting Unavailable ARIAS ., DR ARAIZA Attending Unavailable ZION, DR AQUINO Primary Care Unavailable ARIAS ., DR ARAIZA Consulting Unavailable ZIEBER, DR AYLIN Weber Consulting Unavailable ARIAS ., DR ARAIZA Admitting Unavailable ARIAS ., DR ARIAZA Attending Unavailable ZION, DR AQUINO Primary Care Unavailable ARIAS ., DR ARAIZA Consulting Unavailable ARIAS ., DR ARAIZA Admitting Unavailable ARIAS ., DR ARAIZA Attending Unavailable ZION, DR AQUINO Primary Care Unavailable ARIAS ., DR ARAIZA Consulting Unavailable Asaad, Imad Unavailable Miles Donovan MD Primary Care Provider [phone] Muse, Leyda T Referring Unavailable Muse, Leyda T Admitting Unavailable Muse, Leyda T Attending Unavailable Muse, Leyda T Attending Unavailable Muse, Leyda T Referring Unavailable Muse, Leyda T Admitting Unavailable Muse, Leyda T Admitting Unavailable Muse, Leyda T Attending Unavailable Muse, Leyda T Referring Unavailable ARIAS, Teodora R Attending Unavailable ARIAS, Teodora R Admitting Unavailable ARIAS, Teodora R Attending Unavailable ARIAS, Teodora R Attending Unavailable ARIAS, Teodora R Attending Unavailable ARIAS, Teodora R Attending Unavailable Muse, Leyda T Referring Unavailable Muse, Leyda T Attending Unavailable Muse, Leyda T Admitting Unavailable ARIAS, Teodora R Attending Unavailable ARIAS, Teodora R Referring Unavailable ARIAS, Teodora R Attending Unavailable ARIAS, Teodora R Attending Unavailable ARIAS, Teodora R Attending Unavailable ARIAS, Teodora R Admitting Unavailable MUSE, LEYDA T Attending Unavailable MUSE, LEYDA T Attending Unavailable MUSE, LEYDA T Referring Unavailable MUSE, LEYDA T Referring Unavailable MUSE, LEYDA T Referring Unavailable MUSE, LEYDA T Attending Unavailable MUSE, LEYDA T Referring Unavailable PLEASNICK, MAIA Mcneill Attending Unavailab le MUSE, LEYDA T Referring Unavailable PEREZ, KAVITA Attending Unavailable MUSE, LEYDA T Referring Unavailable PLEASNICK, MAIA Mcneill Attending Unavailab le MUSE, LEYDA T Referring Unavailable PEREZ, KAVITA Attending Unavailable MUSE, LEYDA T Referring Unavailable PEREZ, KAVITA Attending Unavailable MUSE, LEYDA T Referring Unavailable PLEASNICK, MAIA Mcneill Attending Unavailab le MUSE, LEYDA T Referring Unavailable PEREZ, KAVITA Attending Unavailable MUSE, LEYDA T Referring Unavailable PEREZ, KAVITA Attending Unavailable MUSE, LEYDA T Referring Unavailable PLEASNICK, MAIA Mcneill Attending Unavailab le MUSE, LEYDA T Referring Unavailable MUSE, LEYDA T Referring Unavailable MUSE, LEYDA T Attending Unavailable PEREZ, KAVITA Attending Unavailable MUSE, LEYDA T Referring Unavailable PEREZ, KAVITA Attending Unavailable MUSE, LEYDA T Referring Unavailable PEREZ, KAVITA Attending Unavailable MUSE, LEYDA T Referring Unavailable PEREZ, KAVITA Attending Unavailable MUSE, LEYDA T Referring Unavailable MUSE, LEYDA T Attending Unavailable MUSE, LEYDA T Referring Unavailable MUSE, LEYDA T Referring Unavailable MUSE, LEYDA T Referring Unavailable MUSE, LEYDA T Referring Unavailable PEREZ, KAVITA Attending Unavailable MUSE, LEYDA T Referring Unavailable PLEASNICK, MAIA Mcneill Attending Unavailab le MUSE, LEYDA T Referring Unavailable PEREZ, KAVITA Attending Unavailable MUSE, LEYDA T Referring Unavailable PEREZ, KAVITA Attending Unavailable MUSE, LEYDA T Referring Unavailable PLEASNICK, MAIA Mcneill Attending Unavailab le MUSE, LEYDA T Referring Unavailable MUSE, LEYDA T Referring Unavailable MUSE, LEYDA T Attending Unavailable MUSE, LEYDA T Referring Unavailable MUSE, LEYDA T Attending Unavailable MUSE, LEYDA T Referring Unavailable AriasTeodora Admitting Unavailable Arias, Teodora Attending Unavailable Donovan, Miles Attending Unavailable Zion, Miles Admitting Unavailable Zion, Miles Primary Care Unavailable Teodora Arias Admitting Unavailable Arias, Teodora Attending Unavailable Zion, Miles Primary Care Unavailable Allergies Allergy ClassificationReported Allergen(s)Allergy TypeDate of OnsetReaction(s) Facility (6 sources)Bacitracin / Neomycin / Polymyxin B; Translations: [Neosporin]Drug AllergyThe [facility] (7 sources)bacitracin / neomycin / polymyxin b; Translations: [bacitracin/neomycin/polymyxin B topical]Drug AllergyEruption of skin (disorder) [facility] (20 sources)Bacitracin / Polymyxin BDrug Aaostbd04-09-1932[facility] (1 source)BacitracinDrug Nsspprb28-96-2337PpjklaqtdMet[facility] (1 source)NeomycinDrug Yusaelw63-43-9679FbwhdtrmqMetrohealth [facility] Rep[facility] (1 source)polymyxin BDrug allergy (disorder)27-57-4470NogsnzgqdMetrohealth [facility] Repository Medications Current Medications MedicationDrug Class(es)DatesSig (Normalized)Sig (Original)acetaminophen 500 mg oral tablet (12 sources)Start: 73-69-6535jyis 2 tablets by mouth every four hours as needed for painTylenol Extra Strength 500 mg oral tablet 1,000 mg = 2 tab(s), Oral, q4hr, PRN for pain Start Date:01/23/20 Status: Ordered Repeat number: 1 acetaminophen 325 mg / oxyCODONE hydrochloride 5 mg oral tablet (3 sources)Opioid AgonistStart: 62-83-7636Xensdsxb 5 mg-325 mg oral tablet See Instructions, 50 tab(s), Refill(s) 0, Take one to two oral every 4 hours as needed for surgical pain., [facility]/pharmacy #[id number], 187, cm, 08/29/24 12:41:00 EST, Height/Length Dosing, 129, kg, 08/29/24 12:41:00 EST, Weight Dosing Start Date: 09/19/24 Status: Ordered Quantity: 50.0 Unit: tab(s) Repeat number: 1Start: 11-56-6285gbze 1-2 tablets by mouth every four hours as needed for painPercocet 5 mg-325 mg oral tablet See Instructions, 50 tab(s), Refill(s) 0, Take one to two oral every 4 hours as needed for surgical pain., [facility]/pharmacy #[id number], 187, cm, 08/29/24 12:41:00 EST, Height/Length Dosing, 129, kg, 08/29/24 12:41:00 EST, Weight Dosing Start Date: 09/19/24 Status: Orderedamitriptyline hydrochloride 25 mg oral tablet (20 sources)Tricyclic AntidepressantStart: 16-24-6347nrju 2 tablets by mouth once daily at bedtimeamitriptyline 25 mg Tab 50 mg = 2 tab(s), Oral, Once a day (at bedtime), Depression Start Date: 01/16/20 Status: Ordered Repeat number: 1 atorvastatin 40 mg oral tablet (20 sources)HMG-CoA Reductase InhibitorStart: 79-76-4556crao 1 tablet by mouth once dailyatorvastatin (Lipitor) 40 MG tablet Take 40 mg by mouth Daily 11/29/2023 ActiveStart: 88-27-2337zahe 1 tablet by mouth once dailyatorvastatin 20 mg Tab 20 mg = 1 tab(s), Oral, Daily, Refills(s) 0, High cholesterol Start Date: 08/25/22 Status: Ordered Repeat number: 1Centrum Adults 50 Plus MultiGummies (5 sources)Start: 60-36-0613Vvepjqm Adults 50 Plus MultiGummies See Instructions, Refill(s) 0, Prophylaxis Start Date: 08/29/24 Status: Ordered Repeat number: 1Start: 44-65-5226Dxgzdnt Adults 50 Plus MultiGummies See Instructions, Refill(s) 0, Prophylaxis Start Date: 08/29/24 Status: Orderedciprofloxacin 500 mg oral tablet (8 sources)Quinolone AntimicrobialStart: 01-30-2025 End: 33-95-2246ikphfevlkqtnz (Cipro) 500 MG tablet 01/30/2025 ActiveStart: 04-18-2024 End: 86-49-0524Xgwrq 500 mg Tab 500 mg = 1 tab(s), Oral, BID, start 3 days prior to procedure, X 7 day(s), # 14 tab(s), Refills(s) 0, Pharmacy: [facility]/pharmacy #[id number], 187, cm, 04/18/24 8:50:00 EDT, Height/Length Dosing, 129, kg, 04/18/24 8:50:00 EDT, Weight Dosing Start Date: 04/18/24 Stop Date: 04/25/24 Status: Ordere dStart: 10-43-6895qupe 1 tablet by mouth once dailyCipro 500 mg Tab 500 mg = 1 tab(s), Oral, Daily, Take 1 tablet the day before the procedure and 1 tablet after the procedure, # 2 tab(s), Refills(s) 0, Pharmacy: [facility]/pharmacy #[id number], 187, cm, 08/28/2311:09:00 EST, Height/Length Dosing, 132.5, kg, 08/28/22 12:09:00 EST... Start Date: 09/16/22 Status:Ordereddiclofenac sodium 75 mg extended release oral tablet (20 sources)Nonsteroidal Anti-inflammatory DrugStart: 53-99-1279pljj 75 mg by mouth once dailydiclofenac 75 mg, Oral, Daily, Inflammation Start Date: 01/23/20 Status: Ordered Repeat number: 1Start: 36-46-7687ukzu 75 mg by mouth twice daily diclofenac 75 mg, Oral, BID, Inflammation Start Date: 01/23/20 Status: Ordered take 1 tablet by mouth once dailydiclofenac (Voltaren) 75 MG EC tablet Take 75 mg by mouth Daily Activetake 1 tablet by mouth every twelve hoursDiclofenac Sodium 75 MG 1 tablet with food or milk Orally Twice a day for 30 day(s) Active docusate sodium 100 mg oral capsule (18 sources)Start: 71-40-5082tzfg 1 capsule by mouth twice dailyColace 100 mg Cap 100 mg = 1 cap(s), Oral, BID, # 20 cap(s), Refills(s) 0, Pharmacy: [facility]/pharmacy #[id number], 187, cm, 08/29/24 12:41:00 EST, Height/Length Dosing, 129, kg, 08/29/24 12:41:00 EST, Weight Dosing Start Date: 09/19/24 Status: Ordered Quantity: 20.0 Unit: cap(s) Repeat number: 1Colace 100 MG 3 CAPS DAILY Orally Once a day ActiveFish Oils (5 sources)Start: 66-46-7499hksn 1 capsule by mouth once dailyFish Oil 1000 mg oral capsule 1,000 mg = 1 cap(s), Oral, Daily, Refills(s) 0, Prophylaxis Start Date: 08/29/24 Status: Ordered Repeat number: 1Start: 61-17-7248nxkx 1 capsule by mouth once dailyFish Oil 1000 mg oral capsule 1,000 mg = 1 cap(s), Oral, Daily, Refills(s) 0, Prophylaxis Start Date: 08/29/24 Status: Orderedhydrocortisone 25 mg/ml topical cream (2 sources)CorticosteroidStart: 41-30-0305Xfossx-HC 2.5 % 1 application Rectal Twice a day for 30 days November, ActiveNon-Formulary Medication (5 sources)Start: 34-72-0670Ycx-Formulary Medication See Instructions, Super Beta Prostate 2tabs daily for prostate health Start Date: 08/29/24 Status: Ordered Repeat number: 1Start: 73-72-4314Ndl-Formulary Medication See Instructions, Super Beta Prostate 2tabs daily for prostate health Start Date: 08/29/24 Status: Orderedondansetron 4 mg disintegrating oral tablet (4 sources)Serotonin-3 Receptor AntagonistStart: 03-46-9426kyxobtiggmt 4 mg Dis Tab Refills(s) 0 Start Date: 08/25/22 Status: Orderedpolyethylene glycol 3350 342695 mg / potassium chloride 2970 mg / sodium bicarbonate 6740 mg / sodium chloride 5860 mg / sodium sulfate 39545 mg powder for oral solution (4 sources)Osmotic LaxativeStart: 33-18-9737Miwvuued 236 GM At 4:00 pm the day prior to colonoscopy Orally 8 ounces every 15 minutes for Jan, Active Start: 43-48-1734eftr 236 g by mouth once dailyGolytely 236 GM 236 GM THE DAY BEFORE THE COLONOSCOPY Orally THE DAY BEFORE THE COLONOSCOPY for 1 days November, Activesildenafil 50 mg oral tablet (20 sources)Phosphodiesterase 5 InhibitorStart: 25-13-4778osde 1 tablet by mouth once daily as neededsildenafil (Viagra) 50 MG tablet TAKE 1 TABLET BY MOUTH ONCE DAILY NEEDED 07/24/2024 Activetamsulosin hydrochloride 0.4 mg oral capsule (4 sources)alpha-Adrenergic BlockerStart: 74-82-4051iwoq 1 capsule by mouth twice dailyFlomax 0.4 mg Cap 0.4 mg = 1 cap(s), Oral, BID, # 10 cap(s), Refills(s) 0, Pharmacy: [facility]/pharmacy #[id number], 187, cm, 08/25/22 10:32:00 EST, Height/Length Dosing, 130, kg, 08/25/22 10:32:00 EST, Weight Dosing Start Date: 08/25/22 Status: Orderedtemazepam 30 mg oral capsule (20 sources)BenzodiazepineStart: 77-42-1556grmi 1 capsule by mouth once daily at bedtime as needed for sleeptemazepam 30 mg Cap 30 mg = 1 cap(s), Oral, Once a day (at bedtime), PRN for sleep Start Date: 01/16/20 Status: Ordered Repeat number: 1 Completed/Discontinued Medications MedicationDrug Class(es)DatesSig (Normalized)Sig (Original)betamethasone 3 mg/ml / betamethasone acetate 3 mg/ml injectable suspension (4 sources)CorticosteroidStart: 09-07-2024 End: 14-83-8989gpuleljjflure acetate-betamethasone sodium phosphate (Celestone) injection 3 mgStart: 09-07-2024 End: mg, Intra-articular, Once PRN Procedure, Starting on Thu09/07/24 at 1030, For 1 dosecetirizine hydrochloride 10 mg oral tablet (4 sources)Histamine-1 Receptor Antagonisttake 1 tablet by mouth every twenty- four hoursCetirizine HCl 10 MG 1 tablet Orally Once a day Not-TakingDoxylamine (2 sources)Unisom Not-Takingfluticasone (2 sources)CorticosteroidFlonase Not-Takinghyaluronate (20 sources)Start: 18-93-8027Crcctrs Feb, 25 mgStart: 74-10-3958Peelwyc Jan, 25 mgStart: 44-89-8432Epufmwq Jan, 25 mgStart: 02-01-2019 Supartz Jan, 25 mgStart: 71-93-9591Eudgqhl Jan, 25 mgLipo- Flavonoid Plus - (2 sources)Lipo-Flavonoid Plus - Orally Not-Takingomeprazole 40 mg delayed release oral capsule (4 sources)Proton Pump InhibitorStart: 57-48-4353gopw 1 capsule by mouth every twenty-four hoursOmeprazole 40 mg 1 capsule Orally Once a day for 30 day(s) Aug, Not-Takingtake 1 capsule by mouth every twenty-four hoursOmeprazole 20 mg 1 CAPSULE Orally Once a day Not-Takingpsyllium 400 mg oral capsule (11 sources)Start: 00-44-2793qgcl 8 capsules by mouth three times dailyMetamucil 400 mg oral capsule 2,000 mg = 5 cap(s), Oral, TID, fiber with at least 8 ounces of waterStart Date: 01/16/20 Status: OrderedMetamucil 48.57 % as directed Orally Not-TakingMetamucil 1 tab Oral Not-Takingsertraline 50 mg oral tablet (2 sources)Serotonin Reuptake Inhibitortake 0.5 tablet by mouth once daily, then take 1 tablet by mouth once dailySertraline HCl 50 MG TAKE 1/2 TABLET BY MOUTH DAILY FOR 14 DAYS, THEN TAKE 1 DAILY Oral for 30 Not-TakingTriamcinolone (4 sources)CorticosteroidStart: 52-07-8450Grmbrva -40 mg Dec, 40 mg Problems Active Problems Problem ClassificationProblemDateDocumented DateEpisodic/ChronicAbdominal pain (4 sources)Epigastric pain; Translations: [Epigastric pain]EpisodicCalculus of urinary tract (15 sources)Calculus of ureter; Translations: [Calculus of kidney]Onset: 53-38-2985UfrcffahVcmntr of prostate (9 sources)Malignant neoplasm of prostate; Translations: [Malignant tumor of prostate]Onset: 96-98-7074MnqdiciHoekeisr mellitus without complication (1 source)Other abnormal glucose; Translations: [Other abnormal glucose]Onset: 60-89-8830FxwyuygvJhsldaouo of lipid metabolism (1 source)Hyperlipidemia, unspecified; Translations: [HYPERLIPIDEMIA UNSPECIFIED]Onset: 87-43-9542FcyzdppNjdmggvabdiqdglx hemorrhage (5 sources)Rectal hemorrhage; Translations: [Hemorrhage of anus and rectum] EpisodicGenitourinary symptoms and ill-defined conditions (14 sources)Microscopic hematuria; Translations: [Other microscopic hematuria] Onset: 76-39-8775FwrffshpCsbmoktmvdx (5 sources)Hemorrhoids; Translations: [Unspecified hemorrhoids]Episodic Hyperplasia of prostate (10 sources)Benign prostatic hypertrophy without outflow obstruction; Translations: [Benign prostatic hyperplasia without lower urinary tract symptoms]Onset: 85-12-7753OohaejzIoxs disorders (12 sources)Depressive ogqbxjux31-81-8153YqlixndIdocqfhpesxudw (20 sources)Osteoarthritis of knee; Translations: [Arthritis of left knee]Onset: 847878-07-6344OjortpgPxxes aftercare (1 source)Other group home (current) drug therapy; Translations: [OTH WORKFORCE STAFFING ADVISOR CURRENT DRUG THERAPY]Onset: 93-72-9374UmdgxfznJkaqd and unspecified benign neoplasm (2 sources)History of polyp of colon; Translations: [Personal history of colonic polyps]EpisodicOther and unspecified benign neoplasm (1 source)Personal history of colonic polypsEpisodicOther connective tissue disease (1 source)Presence of unspecified artificial knee joint; Translations: [PRESENCE UNS ARTIFICIAL KNEE JOINT]Onset: 27-71-8121ShcvpzxInpax connective tissue disease (4 sources)History of total knee arthroplasty; Translations: [Presence of right artificial knee joint]ChronicOther connective tissue disease (20 sources)History of reverse prosthetic total arthroplasty of right shoulder; Translations: [Presence of right artificial shoulder joint]Onset: 10-18-2024 97-90-6373YgoluuyGrymk connective tissue disease (1 source)Arthrodesis status; Translations: [ARTHRODESIS STATUS]Onset: 28-06-9412LkqrmamnCdhws diseases of bladder and urethra (1 source)Other specified disorders of bladder; Translations: [OTHER SPECIFIED DISORDERS BLADDER]Onset: 99-61-9886YboyqbaOtnxn diseases of kidney and ureters (2 sources)Urinary tract obstruction; Translations: [Hydronephrosis with renal and ureteral calculous obstruction]Onset: 00-02-4677PubblmetHxzej diseases of kidney and ureters (12 sources)Uxemmoirscruip74-60-5644OivqnwqgNpsmq diseases of kidney and ureters (4 sources)Hydronephrosis with renal and ureteral calculous obstruction; Translations: [HYDRONPHROS RENL AND URETRL CALCUL OBST]Onset: 21-59-7779Ujgocvtb Other gastrointestinal disorders (4 sources)Constipation; Translations: [Constipation, unspecified]EpisodicOther gastrointestinal disorders (1 source)Constipation, unspecifiedEpisodicOther male genital disorders (2 sources)Male erectile dysfunction, unspecified; Translations: [Erectile dysfunction]Onset: 26-89-6562IdfldqvKmyub non-traumatic joint disorders (2 sources)Chronic pain of left upper limb; Translations: [Pain in left shoulder]32-78-5429PbouxdqaEsjwv non-traumatic joint disorders (4 sources)Pain in right shoulder; Translations: [Pain in joint, shoulder region]49-56-5881CpoydlybIhvzi nutritional; endocrine; and metabolic disorders (4 sources)Obese class I; Translations: [Body mass index (BMI) 33.0-33.9, adult] ChronicResidual codes; unclassified (1 source)Family history of malignant neoplasm of digestive organsEpisodic Unclassified (1 source)Patient encounter jufgcn08-71-8697Vmodpkggwkvl (2 sources)Chronic pain of right upper uvud61-56-4938Ebdofxke veins of lower extremity (4 sources)Varicose veins of lower extremity; Translations: [Varicose veins of bilateral lower extremities with pain]Episodic Past or Other Problems Problem ClassificationProblemDateDocumented DateEpisodic/ChronicOther non- traumatic joint disorders (20 sources)Chronic pain of right upper limb; Translations: [Pain in right elbow]Onset: 123867-76-3737CjghqqjiRhjgo screening for suspected conditions (not mental disorders or infectious disease) (5 sources)Abnormal electrocardiogram [ECG] [EKG]; Translations: [Encounter for screening for malignant neoplasm of prostate]Onset: 83-03-0777Vmfrmceu Results Test NameValueInterpretationReference RangeFacilityXR Shoulder - right 2 Viewson 49-88-3426Xzopewl Result: Two view x-rays taken in the [place] office saved to the permanent record shows stable position and alignment of the reverse arthroplasty. There is no sign of loosening or infection.[facility] HealthcareXR Shoulder - right 2 Viewson 86-52-9954Klfolthmn Study observation (narrative)[facility] A1C with Estimated Average Gluon 03-72-5508Ivfqxcr [Mass/Vol]114 mg/dLNormalThWest Valley Medical Center Physician GroupComment on above:Result Comment: PERFORMED BY: [facility] [address] [place] [address] PATHOLOGIST TC OPERATOR GELACIO MORRIS M.D.Performed By: #### CMP, LIPID, PSATOTAL, TSH3, CBC, T4F, A1C WTSaint [facility] #### [facility] [address] [place] [address] HXAWpJ9d (Bld) [Mass fraction]5.6 %Normal4.3-5.6[facility] Physician GroupComment on above:Result Comment: Increased risk for diabetes: 5.7 - 6.4 diabetes: >6.4 glycemic control for adults with diabetes: <7.0Performed By: #### CMP, LIPID, PSATOTAL, TSH3, CBC, T4F, A1C WTH eA #### [place] [address] USAComplete Blood Count Auto Diffon 60-50-9961Pojndjokm (Bld) [#/Vol]0.1 10*3/uLNormal0.0-0.2The [facility] Physician GroupComment on above: Result Comment: PERFORMED BY: [place] [address] PATHOLOGIST TC OPERATOR GELACIO MORRIS M.D.Performed By: #### CMP, LIPID, PSATOTAL, TSH3, CBC, T4F, A1C WTH eA #### [place] [address] USABasophils/100 WBC (Bld)1.2 %Normal.[facility] Physician GroupComment on above:Performed By: #### CMP, LIPID, PSATOTAL, TSH3, CBC, T4F, A1C WTH eA #### [place] [address] USAEosinophils (Bld) [#/Vol]0.2 10*3/uLNormal0.0-0.45The [facility] Physician GroupComment on above:Performed By: #### CMP, LIPID, PSATOTAL, TSH3, CBC, T4F, A1C WTH eA #### [place] [id number] USAEosinophils/100 WBC (Bld)3.3 %Normal.[facility] Physician GroupComment on above:Performed By: #### CMP, LIPID, PSATOTAL, TSH3, CBC, T4F, A1C WTH eA #### [place] [address] USAErythrocyte distribution width (RBC) [Ratio]14.6 %Normal 12.0-14.8The [facility] Physician GroupComment on above:Performed By: #### CMP, LIPID, PSATOTAL, TSH3, CBC, T4F, A1C WTH eA #### [place] [address] USAHematocrit (Bld) [Volume fraction]44.8 %Atzame26.8-50.0[facility] Physician GroupComment on above:Performed By: #### CMP, LIPID, PSATOTAL, TSH3, CBC, T4F, A1C WTH eA #### [place] [address] USAHemoglobin (Bld) [Mass/Vol]15.0 g/uTZtvngo21.0-17.0[facility] Physician GroupComment on above:Performed By: #### CMP, LIPID, PSATOTAL, TSH3, CBC, T4F, A1C WTH eA #### [place] [address] USALymphocytes (Bld) [#/Vol]1.6 10*3/uLNormal1.00-4.8The [facility] Physician GroupComment on above:Performed By: #### CMP, LIPID, PSATOTAL, TSH3, CBC, T4F, A1C WT eA #### [place] [address] USALymphocytes/100 WBC (Bld)24.3 %Normal.[facility] Physician GroupComment on above:Performed By: #### CMP, LIPID, PSATOTAL, TSH3, CBC, T4F, A1C WTH eA #### [address] (RBC) [Entitic mass]29.1 jiFgghjl24.5-35.2The [facility] Physician GroupComment on above:Performed By: #### CMP, LIPID, PSATOTAL, TSH3, CBC, T4F, A1C WTH eA #### [place] [address] USAV (RBC) [Entitic vol]86.8 kHBldjme74.5-101The [facility] Physician GroupComment on above:Performed By: #### CMP, LIPID, PSATOTAL, TSH3, CBC, T4F, A1C WTH eA #### [place] [address] USAMean Corpuscular HGB Conc33.6 g/lRWvlxhi75.5-35.6The [facility] Physician GroupComment on above:Performed By: #### CMP, LIPID, PSATOTAL, TSH3, CBC, T4F, A1C WTH eA #### [place] [address] USAMonocytes (Bld) [#/Vol]0.6 10*3/uLNormal0.0-0.8The [facility] Physician GroupComment on above:Performed By: #### CMP, LIPID, PSATOTAL, TSH3, CBC, T4F, A1C WTH eA #### [place] [address] USAMonocytes/100 WBC (Bld)8.4 %Normal.[facility] Physician GroupComment on above:Performed By: #### CMP, LIPID, PSATOTAL, TSH3, CBC, T4F, A1C WTH eA #### [place] [address] USANeutrophils (Bld) [#/Vol]4.2 10*3/uLNormal1.8-7.7The [facility] Physician GroupComment on above:Performed By: #### CMP, LIPID, PSATOTAL, TSH3, CBC, T4F, A1C WTH eA #### [place] [address] USANeutrophils/100 WBC (Bld)62.8 %Normal.[facility] Physician GroupComment on above:Performed By: #### CMP, LIPID, PSATOTAL, TSH3, CBC, T4F, A1C WTH eA #### [place] [address] USANRBC%0.1 /100{WBC}Normal0-0.5The [facility] Physician Group Comment on above:Performed By: #### CMP, LIPID, PSATOTAL, TSH3, CBC, T4F, A1C WTH eA #### [facility] [address] [place] [address] USAPlatelet mean volume (Bld) [Entitic vol]9.4 fLNormal 6.6-10.1The [facility] Physician GroupComment on above:Performed By: #### CMP, LIPID, PSATOTAL, TSH3, CBC, T4F, A1C WTH eA #### [facility] [address] [place] [address] USAPlatelets (Bld) [#/Vol]182 10*3/rOKfugzf206-420Ujx [facility] Physician GroupComment on above:Performed By: #### CMP, LIPID, PSATOTAL, TSH3, CBC, T4F, A1C WTH eA #### [place] [address] USARBC (Bld) [#/Vol]5.16 10*6/uLNormal3.90-5.60The [facility] Physician GroupComment on above:Performed By: #### CMP, LIPID, PSATOTAL, TSH3, CBC, T4F, A1C WTH eA #### [place] [address] USAWBC (Bld) [#/Vol]6.8 10*3/uLNormal4.1-10.5The [facility] Physician GroupComment on above:Performed By: #### CMP, LIPID, PSATOTAL, TSH3, CBC, T4F, A1C WTH eA #### [place] [address] USAWhite Blood Count6.8 [CFU]/mLNormal4.1-10.5The [facility] Physician GroupComment on above:Performed By: #### CMP, LIPID, PSATOTAL, TSH3, CBC, T4F, A1C WTH eA #### [place] [address] USAComprehensive Metabolic Panelon [id number] [Mass/Vol]4.0 g/dLNormal3.5-5.7The [facility] Physician GroupComment on above: Performed By: #### CMP, LIPID, PSATOTAL, TSH3, CBC, T4F, A1C WTH eA #### [facility] [address] [place] [address] USAAlbumin/Globulin [Mass ratio]1.7 {ratio}NormalThe [facility] Physician GroupComment on above:Performed By: #### CMP, LIPID, PSATOTAL, TSH3, CBC, T4F, A1C WTH eA #### [facility] [address] [place] [address] USAALP [Catalytic activity/Vol]81 U/JDfzfzh17-966Lrn [facility] Physician GroupComment on above:Performed By: #### CMP, LIPID, PSATOTAL, TSH3, CBC, T4F, A1C WTH eA #### [facility] [address] [place] [address] USAALT [Catalytic activity/Vol]28 U/LNormal7-52The [facility] Physician GroupComment on above:Performed By: #### CMP, LIPID, PSATOTAL, TSH3, CBC, T4F, A1C WTH eA #### [facility] [address] [place] [address] USAAnion gap [Moles/Vol]10.5 mmol/LNormal6.0-15.0The [facility] Physician GroupComment on above:Performed By: #### CMP, LIPID, PSATOTAL, TSH3, CBC, T4F, A1C WTH eA #### [place] [address] USAAST [Catalytic activity/Vol]23 U/PRdjeom97-68Eco [facility] Physician GroupComment on above:Performed By: #### CMP, LIPID, PSATOTAL, TSH3, CBC, T4F, A1C WTH eA #### [facility] [address] [place] [address] USABilirubin [Mass/Vol]0.6 mg/dLNormal0.3-1.0The [facility] Physician GroupComment on above:Performed By: #### CMP, LIPID, PSATOTAL, TSH3, CBC, T4F, A1C WTH eA #### [place] [address] USACalcium [Mass/Vol]9.1 mg/dLNormal8.6-10.3The [facility] Physician GroupComment on above:Performed By: #### CMP, LIPID, PSATOTAL, TSH3, CBC, T4F, A1C WTH eA #### [facility] [address] [place] [address] USAChloride [Moles/Vol]107 mmol/WSupkbp48-750Nwk [facility] Physician GroupComment on above:Performed By: #### CMP, LIPID, PSATOTAL, TSH3, CBC, T4F, A1C WTH eA #### [facility] [address] [place] [address] USACO2 [Moles/Vol]28.1 mmol/VRohbvf02.0-31.0The [facility] Physician GroupComment on above:Performed By: #### CMP, LIPID, PSATOTAL, TSH3, CBC, T4F, A1C WTH eA #### [facility] [address] [place] [address] USACreatinine [Mass/Vol]1.28 mg/dLNormal0.70-1.30The [facility] Physician GroupComment on above:Performed By: #### CMP, LIPID, PSATOTAL, TSH3, CBC, T4F, A1C WTH eA #### [facility] [address] [place] [address] USAGFR/1.73 sq M.predicted MDRD (S/P/Bld) [Vol rate/Area] 59.836 mL/min/{1.73_m2}NormalThe [facility] Physician GroupComment on above: Performed By: #### CMP, LIPID, PSATOTAL, TSH3, CBC, T4F, A1C WTH eA #### [facility] [address] [place] [address] USAGlobulin (S) [Mass/Vol]2.3 g/dLNormalThe [facility] Physician GroupComment on above:Performed By: #### CMP, LIPID, PSATOTAL, TSH3, CBC, T4F, A1C WTH eA #### [facility] [address] [place] [address] USAGlucose [Mass/Vol]97 mg/gXXdjrkv07-414Adc [facility] Physician GroupComment on above:Result Comment: Random Glucose Reference Range is dependent on time and content of last meal. Glucose of more than 200 mg/dL in a nonstressed, ambulatory subject supports the diagnosis of Diabetes Mellitus. ADA recommended reference rangePerformed By: #### CMP, LIPID, PSATOTAL, TSH3, CBC, T4F, A1C WTH eA #### [facility] [address] [place] [address] USAPotassium [Moles/Vol]4.6 mmol/LNormal3.5-5.1The [facility] Physician GroupComment on above:Performed By: #### CMP, LIPID, PSATOTAL, TSH3, CBC, T4F, A1C WTH eA #### [place] [address] USAProtein [Mass/Vol]6.3 g/dLLow6.4-8.9The [facility] Physician GroupComment on above:Performed By: #### CMP, LIPID, PSATOTAL, TSH3, CBC, T4F, A1C WTH eA #### [place] [address] USASodium [Moles/Vol]141 mmol/WVtkntl449-577Xkt [facility] Physician GroupComment on above:Performed By: #### CMP, LIPID, PSATOTAL, TSH3, CBC, T4F, A1C WTH eA #### [place] [address] USAUrea nitrogen [Mass/Vol]21 mg/dLNormal7-25The [facility] Physician GroupComment on above:Performed By: #### CMP, LIPID, PSATOTAL, TSH3, CBC, T4F, A1C WTH eA #### [place] [address] USAFree T4 (Free Thyroxine)on [id number] T4 [Mass/Vol] 0.80 ng/dLNormal0.61-1.12The [facility] Physician GroupComment on above:Performed By: #### CMP, LIPID, PSATOTAL, TSH3, CBC, T4F, A1C WTH eA #### [place] [address] USALipid Panelon [id number] [Mass/Vol]153 mg/dL Gqguzj921-415Avn [facility] Physician GroupComment on above:Result Comment: Chol less than 200 mg/dl low risk Chol 201-239 mg/dl borderline risk Chol 240 mg/dl and greater high riskPerformed By: #### CMP, LIPID, PSATOTAL, TSH3, CBC, T4F, A1C WTH eA #### [facility] [address] [place] [id number] USACholesterol in HDL [Mass/Vol]29 mg/tDCodggo41-96Lkf [facility] Physician GroupComment on above:Result Comment: HDL CHOL ATP-III CLASSIFICATION Cardiovascular Risk HDL > or equal to 60 mg/dL LOW HDL < 40 mg/dL HIGHPerformed By: #### CMP, LIPID, PSATOTAL, TSH3, CBC, T4F, A1C WTH eA #### [facility] [address] [place] [id number] USACholesterol.total/Cholesterol in HDL [Mass ratio]5.3 {ratio}Normal<5.0The [facility] Physician GroupComment on above:Performed By: #### CMP, LIPID, PSATOTAL, TSH3, CBC, T4F, A1C WTH eA #### [facility] [address] [place] [id number] USALDL Cholesterol,Kiimpyggir49 mg/dLNormal0-100The [facility] Physician GroupComment on above:Result Comment: LDL ATP III CLASSIFICATION LDL less than 100 mg/dL Optimal LDL 100-129 mg/dL Near or above optimal LDL 130-159 mg/dL Borderline high LDL 160-189 mg/dL High LDL greater than 189 mg/dL Very highPerformed By: #### CMP, LIPID, PSATOTAL, TSH3, CBC, T4F, A1C WTH eA #### [facility] [address] [place] [id number] USATriglyceride w/Fqpvht092 mg/dLHigh0-149The [facility] Physician GroupComment on above:Result Comment: TRIG ATP III CLASSIFICATION TRIG less than 150 mg/dL Normal TRIG 150-199 mg/dL Borderline high TRIG 200-500 mg/dL High TRIG greater than 500 mg/dL Very high Standard traceable to the Center for Disease Conrtrol and Prevention (CDC) test method.Performed By: #### CMP, LIPID, PSATOTAL, TSH3, CBC, T4F, A1C WT eA #### [facility] [address] [place] [address] USAVLDL VCWPBUJSQZM21 mg/dLNormalThe [facility] Physician GroupComment on above:Performed By: #### CMP, LIPID, PSATOTAL, TSH3, CBC, T4F, A1C WT eA #### [place] [id number] USAPSA Total (Not a Screen)on [id number] Total (Not a Screen)4.430 ng/mLHigh0.000-4.000The [facility] Physician GroupComment on above: Result Comment: Serial tumor marker results determined by assays using different manufacturers or methods may not be comparable. [facility] toll gate tender and method: Okeyko DXI, CHEMILUMINESCENT IMMUNOASSAY. PERFORMED BY: [place] [id number] PATHOLOGIST TC OPERATOR GELACIO MORRIS M.D.Performed By: #### CMP, LIPID, PSATOTAL, TSH3, CBC, T4F, A1C [facility] eA #### [address] [address] USAThyroid Stimulating Hormoneon 43-04-0450RLC Qn1.63 m[IU]/L Normal0.45-5.33The [facility] Physician GroupComment on above:Result Comment: PERFORMED BY: [address] [address] PATHOLOGIST TC OPERATOR GELACIO MORRIS M.D.Performed By: #### CMP, LIPID, PSATOTAL, TSH3, CBC, T4F, A1C WT eA #### [address] [address] USAAmbulatory Visit Summaryon [id number] Visit SummaryAmbulatory Visit Summary RITAMATTY HUDSON Pramod :1955 Visit Date:01/30/2025 Ambulatory Visit Instructions Your Diagnosis Prostate cancer BPH (benign prostatic hyperplasia) History of kidney stones ED (erectile dysfunction) Your Care Team Attending Physician - Teodora ARIAS MD Primary Care Physician - MILES DONOVAN MD This Is Your Medications List Contact prescribing physician if questions or concerns Non-Formulary Medication acetaminophen (Tylenol Extra Strength 500 mg oral tablet) amitriptyline (amitriptyline 25 mg Tab) atorvastatin (atorvastatin 20 mg Tab) diclofenac multivitamin with minerals (Centrum Adults 50 Plus MultiGummies) omega-3 polyunsaturated fatty acids (Fish Oil 1000 mg oral capsule) sildenafil (sildenafil 50 mg Tab) temazepam (temazepam 30 mg Cap) Procedures Performed Total shoulder replacement (09/26/2024), Transrectal needle biopsy of prostate (07/18/2024), Total knee arthroplasty (01/23/2020), Arthroscopy of knee, Bone spur of left foot, Excision of ganglion cyst of wrist, recurrent, Excision of peripheral neuroma, History of spinal fusion, History of tonsillectomy, History of total knee arthroplasty, Repair of left direct inguinal hernia, Repair of right direct inguinal hernia, Varicose vein stripping. Discharge Vitals Temperature (Temporal Artery) 37 ???C Heart Rate (Peripheral) 80 Blood Pressure 138/86 Height 187 cm Height 74 in Weight 133.4 kg Weight 294.096 lb BMI 38.15 What to do next You Need to Schedule the Following Appointments Follow Up with JUANA HOGAN, Teodora Weber, SUJATHA When: Where: [facility] [address] , [place] [address] [phone] Medications What How Much When Instructions Unchanged acetaminophen (Tylenol Extra Strength 500 mg oral tablet) 2 Tablets By Mouth Every 4 hours as needed for for pain Contact prescribing physician if questions or concerns Unchanged amitriptyline (amitriptyline 25 mg Tab) 2 Tablets By Mouth Once a day (at bedtime) Contact prescribing physician if questions or concerns Unchanged atorvastatin (atorvastatin 20 mg Tab) 1 Tablets By Mouth Every day Contact prescribing physician if questions or concerns Unchanged diclofenac 75 Milligram By Mouth Every day Contact prescribing physician if questions or concerns Unchanged multivitamin with minerals (Centrum Adults 50 Plus MultiGummies) See instructions Contactprescribing physician if questions or concerns Unchanged Non-Formulary Medication See instructions Super Beta Prostate 2tabs daily for prostate health Contact prescribing physician if questions or concerns Unchanged omega-3 polyunsaturated fatty acids (Fish Oil 1000 mg oral capsule) 1 Capsules By Mouth Every day Contact prescribing physician if questions or concerns Unchanged sildenafil (sildenafil 50 mg Tab) 1 Tablets By Mouth Every day as needed for Other (see comment) 1 hour before sexual activity Contact prescribing physician if questions or concerns Unchanged temazepam (temazepam 30 mg Cap) 1 Capsules By Mouth Once a day (at bedtime) as needed forfor sleep Contact prescribing physician if questions or concerns Allergies Neosporin (Rash) Problems Ongoing - Any problem that you are currently receiving treatment for. BPH (benign prostatic hyperplasia) ED (erectile dysfunction) History of kidney stones Microhematuria Prostate cancer Historical - Any problem that you are no longer receiving treatment for. Ureteral stone with hydronephrosis Patient Survey You [...] the procedure, it is common to have: ??? Pain and discomfort near your rectum, especially while sitting. ??? [place]-colored urine due to small amounts of blood in your urine. ??? A burning feeling while urinating. ??? Blood in your stool (feces) or bleeding from your rectum. ??? Blood in your semen. Follow these instructions at home: Medicines ??? Take xsfv-lau-yyroqkx and prescription medicines only as told by your health care provider. ??? If you were given a sedative during your procedure, it can affect you for several hours. Do not drive or operate machinery until your health care provider says that it is safe. ??? If you were prescribed an antibiotic medicine, take it as told by your health care provider. Do notstop using the antibiotic even if you start to feel better. Activity [Lana (more content not included)...NormalFisher Brook Lane Psychiatric CenterUrology Office/Clinic Noteon [id number] Office/Clinic NoteUrology Office/Clinic Note Chief Complaint 6 month f/u with PSA and MARIAN HPI Staff 69 yr old male here for 6 month f/u w/ PSA and MARIAN DX: Prostate cancer (ACTIVE SURVEILLANCE), BPH and hx of kidney stones PSA 04/08/23 - 4.11 04/08/24 - 5.89 01/16/25 - 6.5 IPSS score of 2 today. Denies any urinary concerns at this time. History of Present Illness Tests reviewed: reviewed UA, PSA I have reviewed the previous health record information and history for this patient from Dr. Arias. I have reviewed and verified the staff [...] Physical Exam Vitals & Measurements T: 37 ???C(Temporal Artery) HR: 80(Peripheral) BP: 138/86 HT: 187 cm HT: 74 in WT: 294.096 lb WT: 133.4 kg BMI: 38.15 General Appearance: alert, no distress, well nourished, well developed male. Prostate: normal prostate, estimated weight 45 gms, no hard nodule observed. Assessment/Plan 1. Prostate cancer (C61: Malignant neoplasm of prostate) ACTIVE SURVEILLANCE PSA 12/06/07 - 1.54 10/04/09 - 1.25 ... 04/08/23 - 4.11 04/08/24 - 5.89 01/16/25 - 6.5 MRI prostate 06/14/24 - Neg. Suggestive of prior prostatitis. Prostate volume 115 cc. TRUS/bx 07/18/24 - G6 (3+3) x 1 core (R4), GG1, ~4% of submitted tissue involved. HGPIN x 1 core (L4). MARIAN: 45g, no nodules. PSA has increased from prior. Advised pt he is due for a confirmatory bx at the end of this yr. Risks/benefits discussed. Shares PCP is ordering annual blood work, which includes PSA, in Apr. Will monitor for this level. -Will schedule TRUS of Prostate with Confirmatory Biopsy. The procedural risks, benefits, details, and treatment alternatives have been discussed with the patient. These include minimal to severe bleeding, infection, blood in the semen, inability to urinate, and severe infection requiring hospitalization and IV antibiotics, among others. Full informed consent has been obtained. Will order Local anesthesia. 2. BPH (benign prostatic hyperplasia) (N40.0: Benign prostatic hyperplasia without lower urinary tract symptoms) UA neg. IPSS 3. Not taking any BPH meds. No bother w urination. 3. History of kidney stones (Z87.442: Personal history of urinary calculi) KUB 02/12/23 for left abdominal pain - Neg. KUB 03/10/23 - Neg. KUB 04/11/24 TBH - Neg. [1] 4. ED (erectile dysfunction) (N52.9: Male erectile dysfunction, unspecified) Not interested in treatment as he is not sexually active. Follow-up With When Contact Information JUANA HOGAN, Teodora Weber, REPLACED BY [facility] [address] [place] [phone] Additional Instructions: sched confirmatory bx Patient Education Transrectal Ultrasound-Guided Prostate Biopsy, Care After Transrectal Ultrasound-Guided Prostate Biopsy IMily, personally scribed for Dr. Arias on 01/30/2025 12:02:27. . Documentation recorded by the scribeMily, accurately reflects the services(s) I performed and decisions made by me. Authenticated by Dr. Arias on 01/30/2025 12:04:01. Problem List/Past Medical History Ongoing BPH (benign prostatic hyperplasia) ED (erectile dysfunction) History of kidney stones Microhematuria Prostate cancer Historical Ureteral stone with hydronephrosis Procedure/Surgical History Total shoulder replacement (09/26/2024), Transrectal needle biopsy of prostate (07/18/2024), Total knee arthroplasty (01/23/2020), Arthroscopy of knee, [...] a day (at bedtime) atorvastatin 20 mg Tab, 20 mg= 1 tab(s), Oral, Daily Centrum Adults 50 Plus MultiGummies, See Instructions diclofenac, 75 mg, Oral, Daily Fish Oil 1000 mg oral capsule, 1000 mg= 1 cap(s), Oral, Daily Non-Formulary Medication, See Instructions sildenafil 50 mg Tab, 50 mg= 1 tab(s), Oral, Daily, PRN temazepam 30 mg Cap, 30 mg= 1 cap(s), Oral, Once a day (at bedtime), PRN Tylenol Extra Strength 500 mg oral tablet, 1000 mg= 2 tab(s), Oral, q4hr, PRN Allergies Neosporin (Rash) Social History Alcohol - Denies Alcohol Use (more content not included)...[facility] CenterComment on above:Result Comment: Electronically Signed By: Teodora ARIAS MD\.br\Date and Time Signed: 01/30/25 12:04 EDT\.br\Electronically Co-Signed By: Mily Madrigal\.br\Date and Time Co-Signed: 01/30/25 12:02 EDT Ambulatory Visit Summaryon [id number] Visit SummaryAmbulatory Visit Summary MATTY LIANG :1955 Visit Date:01/16/2025 Ambulatory Visit Instructions Your Care Team Attending Physician - Teodora ARIAS MD Primary Care Physician - MILES DONOVAN MD This Is Your Medications List Non-Formulary Medication acetaminophen (Tylenol Extra Strength 500 mg oral tablet) acetaminophen-oxycodone (Percocet 5 mg-325 mg oral tablet) amitriptyline (amitriptyline 25 mg Tab) atorvastatin (atorvastatin 20 mg Tab) diclofenac docusate (Colace 100 mg Cap) docusate (Colace 100 mg Cap) multivitamin with minerals (Centrum Adults 50 Plus MultiGummies) omega-3 polyunsaturated fatty acids (Fish Oil 1000 mg oral capsule) sildenafil (sildenafil 50 mg Tab) temazepam (temazepam 30 mg Cap) Procedures Performed Total shoulder replacement (09/26/2024), Transrectal needle biopsy of prostate (07/18/2024), Total knee arthroplasty (01/23/2020), Arthroscopy of knee, Bone spur of left foot, Excision of ganglion cyst of wrist, recurrent, Excision of peripheral neuroma, History of spinal fusion, History of tonsillectomy, History of total knee arthroplasty, Repair of left direct inguinal hernia, Repair of right direct inguinal hernia, Varicose vein stripping. What to do next Scheduled Follow-Up Appointments Thursday 11:15 AM EDT With: JUANA HOGAN, Teodora Weber Where: [facility] [place] [address]- Medications What How Much When Instructions Unchanged acetaminophen (Tylenol Extra Strength 500 mg oral tablet) 2 Tablets By Mouth Every 4 hours as needed for for pain Unchanged acetaminophen-oxycodone (Percocet 5 mg-325 mg oral tablet) See instructions Take one to two oral every 4 hours as needed for surgical pain. Unchanged amitriptyline (amitriptyline 25 mg Tab) 2 Tablets By Mouth Once a day (at bedtime) Unchanged atorvastatin (atorvastatin 20 mg Tab) 1 Tablets By Mouth Every day Unchanged diclofenac 75 Milligram By Mouth Every day Unchanged docusate (Colace 100 mg Cap) 1 Capsules By Mouth 2 times a day as needed for as needed for constipation Unchanged docusate (Colace 100 mg Cap) 1 Capsules By Mouth 2 times a day Unchanged multivitamin with minerals (Centrum Adults 50 Plus MultiGummies) See instructions Unchanged Non-Formulary Medication See instructions Super Beta Prostate 2tabs daily for prostate health Unchanged omega-3 polyunsaturated fatty acids (Fish Oil 1000 mg oral capsule) 1 Capsules By Mouth Every day Unchanged sildenafil (sildenafil 50 mg Tab) 1 Tablets By Mouth Every day as needed for Other (see comment) 1 hour before sexual activity Unchanged temazepam (temazepam 30 mg Cap) 1 Capsules By Mouth Once a day (at bedtime) as needed forfor sleep Allergies Neosporin (Rash) Problems Ongoing - Any problem that you are currently receiving treatment for. BPH (benign prostatic hyperplasia) History of kidney stones Microhematuria Prostate cancer Historical - Any problem that you are no longer receiving treatment for. Ureteral stone with hydronephrosis Patient Survey You may receive a survey via text or e-mail asking about your office visit. Please share your experience with us by completing your survey. We appreciate your feedback and thank you for choosing us for your care. NormalMemorial Health SystemCHEMISTRYOrdered By: SYSTEM SYSTEM on [id number] specific Ag [Mass/Vol]6.5 ng/mLHigh0.1 - 3.5 ng/mL Remisol ChemComment on above:Interpretive Data: The concentration of PSA determined by different manufacturers can vary due to differences in assay methods and reagent specificity. Values obtained from different assay methods cannot be used interchangeably. The methodology used for this result was chemiluminescence using [employer]'s Access Hybritech PSA reagent.PSA Total on [id number] Total6.5 ng/mLHigh0.1-3.5Fisher Brook Lane Psychiatric CenterComment on above:Result Comment: The concentration of PSA determined by different manufacturers can vary due to differences in assay methods and reagent specificity. Values obtained from different assay methods cannot be used interchangeably. The methodology used for this result was chemiluminescence using [employer]'s Access Hybritech PSA reagent.Performed By: #### [id number] #### [facility] [address] [place], [place] [address] Shoulder - right 2 Viewson [id number] Result: X-rays, permanently saved to the patient's record, are reviewed two views AP and Y show stable position and alignment of the reverse arthroplasty. There is no subluxation or dislocation seen.Critical access hospitalXR Shoulder - right 2 Viewson [id number] Study observation (narrative)[facility] HospitalSurgical Pathology Reporton [id number] Pathology ReportMount Carmel Health System [address] [facility] [place] [address]- Surgical Pathology Report Collected Date/Time: 09/26/2024 11:57 EST Pathologist: Can HOGAN PhD, Tana Benavidez Received Date/Time: 09/26/2024 12:52 EST Eleni DO, Leyda Muse DO, Leyda Pena Surgical Pathology Report - 09/29/2024 12:36 EST - Auth (Verified) Final Diagnosis RIGHT SHOULDER BONE AND SOFT TISSUE, ARTHROPLASTY: - BONE CARTILAGE WITH DEGENERATIVE REMODELING CHANGES. - BENIGN SYNOVIAL SOFT TISSUE. (Electronic Signature) Tana North MD PhD 09/29/2024 12:36 Clinical Information Right shoulder osteoarthritis Pre-Op Diagnosis: Right shoulder osteoarthritis Procedure: Right reverse total shoulder arthroplasty Post-Op Diagnosis: 1. Right shoulder endstage osteoarthritis 2. Chronic cuff arthropathy 3. Failure of conservative injection management Specimen(s) Received right shoulder bone and soft tissue Gross Description Received in formalin labeled with patient name, number, and right shoulder bone and soft tissue is a humeral head measuring 5 x 4.9 x 1.1 cm. The articular surface is thin, rough, and eburnated with osteophyte formation present. Cross-sectioning through the humeral head contains areas of focal softening measuring in aggregate 1.2 x 0.5 cm. Also received in the container are multiple fragments of dupont/pink/light yellow bone and soft tissue measuring in aggregate 5 x 4.5 x 1.5 cm. Park Maintainer portion is submitted in two cassettes: 1 - Soft tissue 2 - Bone after decalcification (DC) DC:[facility] Microscopic Description Microscopic examination performed unless gross only specified. This report was transcribed using voice recognition technology and might contain unintended computerized machine ii coremaker errors.[facility] CenterComment on above:Performed By: #### [id number] #### [facility] [address] [place] [id number] [id number] Patient: MATTY LIANG Age: 68 years Sex: Male : 1955 Associated Diagnoses: None Author: Maxim Biswas MD Procedure Nerve Block Block Type: Interscalene block. Laterality: Right. Informed consent for anesthesia management: Anesthesia options discussed including nerve block, Description of the procedure, risks, benefits, and alternatives was provided, The patient's questions were addressed. Time out: Confirmed correct patient, procedure and site. Time: Date/Time 09/26/2024 10:55:00. Indication: Block for postoperative pain management as requested by surgeon. Anesthesia Method: IV Sedation with monitored anesthesia care, The patient remained awake and able to interact in a meaningful way throughout the procedure. Preparation: The patient was placed in the following position Sitting, Continuous pulse oximetry applied, Using maximal sterile barrier technique per current [facility] guidelines including hand hygeine, Guidance (Ultrasound used to identify anatomical landmarks, Using sterile gel and probe covers, Permanent image retained), The site was prepped with ChloraPrep. Procedure: Anesthetic Agent local 3cc2% lido; 21g 100mm block needle w/ US; 20cc Ropivicaine 0.5% with epi 4mcg/cc in increments; needle tip visualized throughout; low pressure injection, Needle was inserted without pain or parasthesia in the conscious patient, Number of attempts 1, Negative attempt at aspiration for blood, Medial and lateral spread of the anesthestic was observed, Periodic negative attempts at aspiration of blood were made as the local was injected, No pain or parathesia were elicited with injection of the anesthetic in the conscious patient, It was idetified that the correct anesthetic agent was administered to the correct site. Complications: None, The patient tolerated the procedure as expected.[facility] Recordon [id number] OR Intraoperative RecordMain OR Intraoperative Record IntraOp Document Type FT Summary Primary Physician: Leyda Muse DO Finalized Date/Time: 09/27/24 10:14:28 Pt. Name: MATTY LIANG Pramod Diego./Sex: 1955 Male Med Rec #: [id number] Physician: Leyda Muse DO Financial #: [id number] Pt. Type: A Room/Bed: [place] [address] Admit/Disch: 09/26/24 07:59:07 - 09/26/24 15:45:00 Institution: Case Times FT Entry 1 Patient Times In Room 09/26/24 10:59:00 Out Room 09/26/24 12:28:00 Procedure Times Start 09/26/24 11:28:00 Stop 09/26/24 12:22:00 Anesthesia Times Start 09/26/24 10:59:00 Stop 09/26/24 12:28:00 Block Timeout w/ 09/26/24 10:50:00 Anesthesia Last Modified By: Arpan Rodriguez 09/26/24 12:28:04 General Comments: [address] BISWAS WITH Alexa WADE ASSISTING. PATIENT TOLERATED WELL. HEART RATE 79,SPO2 100%. Stefania RODRIGUEZ RN. 09/27/24 Chart opened to review and send charges [facility]oth CSFA Case Attendance FT Entry 1 Entry 2 Entry 3 Case Attendee Fabian DIAZ, Armin Muse DO, Thu Irvin CST Role Performed Anesthesiologist Surgeon - Primary DIABETIC EDUCATOR/SA Straw Hat Brim Cutter Operator Time In 09/26/24 10:59:00 09/26/24 11:22:00 09/26/24 10:59:00 Time Out 09/26/24 12:28:00 09/26/24 12:22:00 09/26/24 12:28:00 Procedure SHOULDER TOTAL SHOULDER TOTAL SHOULDER TOTAL ARTHROPLASTY(Right) ARTHROPLASTY(Right) ARTHROPLASTY(Right) Comments Last Modified By: Arpan Rodriguez Terry T Sweene, Terry T 09/26/24 12:28:05 09/26/24 14:57:08 09/26/24 12:28:05 Entry 4 Entry 5 Entry 6 Case Attendee Arpan Rodriguez Sydney A Chaput, Madison A Role Performed Keno Dealer - Primary Scrub - Primary Staff - Other Time In 09/26/24 10:59:00 09/26/24 10:59:00 09/26/24 10:59:00 Time Out 09/26/24 12:28:00 09/26/24 12:28:00 09/26/24 12:28:00 Procedure SHOULDER TOTAL SHOULDER TOTAL SHOULDER TOTAL ARTHROPLASTY(Right) ARTHROPLASTY(Right) ARTHROPLASTY(Right) Comments 3RD SCRUB Last Modified By: Arpan Rodriguez Terry T Sweene, Terry T 09/26/24 12:28:05 09/26/24 12:28:05 09/26/24 12:28:05 Entry 7 Case Attendee Keya Knight CST Role Performed Scrub - Relief Time In 09/26/24 10:59:00 Time Out 09/26/24 12:28:00 Procedure SHOULDER TOTAL ARTHROPLASTY(Right) Comments 2ND SCRUB Last Modified By: Arpan Rodriguez 09/26/24 12:28:05 General Comments: EDY SHAW - REP HERE FOR CASE. Stefania RODRIGUEZ RN. Perioperative Protocols FT Pre-Care Text: Implements protective measures prior to operative or invasive procedure, confirms identity before the operative or invasive procedure, verifies operative procedure, surgical site, and laterality Entry 1 Procedure(s) SHOULDER TOTAL Patient Identity Birthday, ID Band ARTHROPLASTY(Right) Verified (select at Check, Patient least 2): Participation Consents / H and P Anesthesia Consent, Operative Site N/A Verified H&P, Surgery/Procedure Marking Verified Consent Surgical Site Yes Laterality Verified Yes Verified Procedure Verified Yes Correct Patient Yes Position Verified Availability Equipment, Implant, Prep Dry Yes Verified (If Medication Applicable) PreOp Antibiotic Yes Time Out Armin Worley, Given Participants Thu Cortez CST, Leyda Muse DO, Arpan Rodriguez, Carmelita Shearer, Janie Collins, Eugene FINLEY, Keya Mcneill Time Out Complete 09/26/24 11:22:00 Outcomes Met? Yes Last Modified By: Arpan Rodriguez 09/26/24 11:40:28 Post-Care Text: The patient is free from signs and symptoms of injury caused by extraneous objects Allergy Information FT Pre-Care Text: Verifies allergies Entry 1 Allergies Reviewed? Yes Allergies Reviewed Self/Patient With Outcomes Met? Yes Last Modified By: Arpan Rodriguez 09/26/24 11:40:35 Post-Care Text: The patient received appropriate medication(s) safely administered during the perioperative period Surgical Procedures FT Entry 1 Procedure Description Procedure SHOULDER TOTAL Modifiers Right ARTHROPLASTY Surgeon Description RIGHT REVERSE TOTAL SHOULDER ARTHROPLASTY Primary Procedure Yes Primary Surgeon Leyda Muse DO Start 09/26/24 11:28:00 Stop 09/26/24 12:22:00 Anesthesia Type General Surgical Service Orthopedics Wound Class 1 - Clean Last Modified By: Arpan Rodriguez 09/26/24 12:28:08 General Case Data FT Pre-Care Text: Classifies surgical wound, implements aseptic technique, initiates traffic control Entry 1 Case Information OR OR 5 FT Case Level Level 6 Wound Class 1 - Clean Specialty Orthopedics ASA Class 3 Preop Diagnosis RIGHT SHOULDER Postop Same As Preop Yes OSTEOARTHRITIS Postop Diagnosis RIGHT SHOULDER Outcomes Met? Yes OSTEOARTHRITIS Last Modified By: Arpan Rodriguez 09/26/24 11:40:57 Post-Care Text: The patient is free from signs and symptoms of infection Skin Assessment (Pre Procedure) FT Pre-Care Text: Implements protective measures to prevent skin/ tissue injury due to the (more content not included)...[facility] Reporton [id number] ReportOperative Report SURGERY DATE: 09/26/2024 ANALYTICAL MANAGER: Thu Cortez C.F.A. PREOPERATIVE DIAGNOSES: 1. Right shoulder endstage osteoarthritis 2. Chronic cuff arthropathy 3. Failure of conservative injection management POSTOPERATIVE DIAGNOSES: 1. Right shoulder endstage osteoarthritis 2. Chronic cuff arthropathy 3. Failure of conservative injection management OPERATION: 1. Right shoulder reverse total shoulder arthroplasty 2. Biceps tenodesis long head 3. Application of UltraSling ANESTHESIA: General/interscalene block combination ESTIMATED BLOOD LOSS: 100 cc SPECIMEN: Bone IMPLANTS: The Reach Clothing Tornier Perform shoulder set. There is a 29 full-wedge metaglene baseplate, central screw standard of 40 mm, peripheral screws x4 ranging from 22 to 38 mm, a 39 standard glenosphere, a +4 Press-Fit Perform short humeral stem, and a 39/0 polyethylene tray size 4 HISTORY AND INDICATIONS: Matty is a 68-year-old male with progressive tqgm-dy-scqn disease that is grade 4 severe in nature. He has had progressive stiffness, crepitation, pain, as well as night disruption. He has failed conservative management with physical therapy, ice, Tylenol, topicals, antiinfl ammatory. He has tried several injections with the last couple providing little to no relief. CT scan 3D Blueprint is performed preoperatively for staging, planning, as well as utilized intraoperatively for placement. 3D guide is sterilely prepped and utilized throughout the procedure as well. Consent form signed and witnessed. All questions answered. Antibiotics provided weight based per protocol. PROCEDURE: Matty was taken to the Operating Room and placed in supine position. Anesthesia was provided. He was placed on the beach-chair table. The shoulder and arm were prepped and draped in sterile fashion. A time-out procedure occurred consistent with the consent form, History and Physical, preoperative marked site. Landmarks were identified. Once time-out was confirmed, an anterior incision of 3-1/2 was made over the deltopectoral interval. All bleeders were cauterized. The cephalic vein was protected and retracted throughout the procedure. Deltopectoral approach was encountered. Blunt dissection was performed with blunt retractors. Biceps tenotomy was performed, shortened, and sutured to pectoralis major tendon with 0 Vicryl suture with tenodesis. Capsule was dissected free. Supraspinatus was chronically torn, atrophied, and retracted. There was a small slip of infraspinatus. Thehead was dislocated anteriorly. Cutting guide was appropriately positioned and fresh cut was made of the humeral head and removed. Protective baseplate was provided. Attention was then directed to the glenoid. This was exposed with retractors. Peripheral labrum osteophytes were removed. The four-prong Blueprint guide was appropriately positioned according to the CT scan, and a central guide pin was appropriately positioned and confirmed. This was then drilled, reamed, and redrilled and measuredwith a 40 mm standard central screw. Irrisept was allowed to soak per protocol followed by copious irrigation. The standard metaglene 29 was appropriately positioned with the shark fin at 6:00 per preoperative template and tensioned with a 40 mm screw with good purchase. Peripheral screws had excellent purchase as well as above, drilled, measured, and placed. After copious irrigation the 39 standard glenosphere was appropriately seated, impacted, tensioned, reimpacted, and retensioned with goodpurchase. The proximal humerus was then delivered. This was sized for a 4 and reamed. Broaching was performed with appropriate version. Trial components were placed with good position and alignment and appropriate tension of the conjoint tendon, deltoid, and soft tissues. It was taken through arc of motion without perching or instability. Trial components on the humeral side were removed. It was copiously irrigated out. The #4 Press-Fit Perform short humeral stem was impacted. The 0 polyethylene was impacted. Shoulder was reduced and taken through arc of motion and deemed stable. After copious irrigation 60 cc of Exparel per protocol with bupivacaine was injected along the subcutaneous tissues and fascial layer. Tranexamic acid 2 g was placed subfascially. The fascial layer was closed with 0 Vicryl suture, 3-0 Vicryl suture closed the subcutaneous tissues, and a 4-0 Monocryl intracuticular suture was placed with liquid adhesive glue. An 8 Mepilex dressing with UltraSling was provided. The patient was awakened from anesthesia and transferred to the Recovery Room in stable and satisfactory condition. CASE: Clean and elective COUNTS: Sponge and needle count correct SPECIMEN: Bone PATIENT CONDITION: Satisfactory Jay Estevez Dictated: 09/26/2024 [id number] Transcribed: 09/26/2024 cc:Miles Donovan M.D.[facility] CenterComment on above: Result Comment: Electronically Signed By: Leyda Muse DO\.br\Date and Time Signed: 09/27/24 06:56 ESTABO/Rhon [id number]/RhNegativeInvalid Interpretation [facility], IncComment on above:Performed By: #### [id number] #### [facility] [address] [place], [place] [address]UTR/Rh History Checkon [id number] History CheckVerified Hx Blood TypeNoParkview Health Montpelier HospitalComment on above:Performed By: #### [id number] #### [facility] [address] [place], [place] [address]YMFYqj [id number] Gel InterpNegativeUniversity Hospitals Cleveland Medical CenterComment on above:Performed By: #### [id number] ####[facility] [address] [place], [place] [address]YDNXJ BANKOrdered By: Clara Johnson on [id number] InterpNegativeInvalid Interpretation Code [facility] BB SubsectionABSC Gel InterpNegative (09/26/24 8:38 AM)Normal[facility] BB SubsectionBlood Bank ID#on [id number] Invalid Interpretation [facility], IncComment on above:Performed By: #### [id number] #### [facility] [address] [place], [place] [address]Inhjspgqo Instructionson [id number] Instructions Discharge Instructions MATTY LIANG :1955 Visit Date:09/26/2024 Inpatient Discharge Instructions Your Care Team Admitting Physician - Leyda Muse DO Referring Physician - Leyda Muse DO Reason for Your Visit RIGHT SHOULDER OA Your Diagnosis Localized osteoarthritis of right shoulder Tests Performed XR Shoulder Complete Right -- Results Pending -- Please visit your patient portal for your results or contact your primary care physician. This Is Your Medications List Non-Formulary Medication acetaminophen (Tylenol Extra Strength 500 mg oral tablet) acetaminophen-oxycodone (Percocet 5 mg-325 mg oral tablet) amitriptyline (amitriptyline 25 mg Tab) atorvastatin (atorvastatin 20 mg Tab) diclofenac docusate (Colace 100 mg Cap) docusate (Colace 100 mg Cap) multivitamin with minerals (Centrum Adults 50 Plus MultiGummies) omega-3 polyunsaturated fatty acids (Fish Oil 1000 mg oral capsule) sildenafil (sildenafil 50 mg Tab) temazepam (temazepam 30 mg Cap) Procedure History Transrectal needle biopsy of prostate (07/18/2024), Total knee arthroplasty (01/23/2020), Arthroscopy of knee, Bone spur of left foot, Excision of ganglion cyst of wrist, recurrent, Excision of peripheral neuroma, History of spinal fusion, History of tonsillectomy, History of total knee arthroplasty, Repair of left direct inguinal hernia, Repair of right direct inguinal hernia, Varicose vein stripping. What to do next Instructions From Your Doctor Event Name Event Result Discharge Instructions Freetext Sling for 4 weeks. Discharge Activity Ambulate as tolerated, Arrange for a responsible adult supervision for 24 hours, Expect mild pain, Expect minimal amount of drainage and/or bleeding, Do not lift more than 5 lbs Discharge Restrictions No driving, Do not operate machinery or tools, Do not make important decisions for 24 hours, Do notdrink alcoholic beverages for 24 hours Discharge Diet(s) Regular, Drink liquids and eat a light meal Call Your Doctor For Persistent or heavy bleeding, Temperature above 101.5 degrees, Redness, swelling, or pus at operative site, Severe pain at the operative site, Persistent vomiting Wound Care Remove dressing as instructed Discharge Instructions Discharge Instructions Previously Scheduled Follow-Up Appointments Thursday 8:45 AM EDT With: Where: [facility] [place] [address] [place] [address]- Thursday 11:15 AM EDT With: JUANA HOGAN, Teodora Weber Where: [facility] [address] [address]- New Follow Up Appointments after Discharge Follow Up with LISANDRO Estevez When: 10/11/2024 02:00 PM EDT Comments: Keep scheduled appointment Where: [address] [place] [id number] [facility] (1) Medications What How Much When Instructions Next Dose Unchanged acetaminophen (Tylenol Extra Strength 500 mg oral tablet) 2 Tablets By Mouth Every 4 hours as needed for for pain Unchanged acetaminophen-oxycodone (Percocet 5 mg-325 mg oral tablet) See instructions Take one to two oral every 4 hours as needed for surgical pain. Pickup at [facility]/pharmacy #[id number] Unchanged amitriptyline (amitriptyline 25 mg Tab) 2 Tablets By Mouth Once a day (at bedtime) Unchanged atorvastatin (atorvastatin 20 mg Tab) 1 Tablets By Mouth Every day Unchanged diclofenac 75 Milligram By Mouth Every day Unchanged docusate (Colace 100 mg Cap) 1 Capsules By Mouth 2 times a day as needed for as needed for constipation Unchanged docusate (Colace 100 mg Cap) 1 Capsules By Mouth 2 times a day Pickup at [facility]/pharmacy #[id number] Unchanged multivitamin with minerals (Centrum Adults 50 Plus MultiGummies) See instructions Unchanged Non-Formulary Medication See instructions Super Beta Prostate 2tabs daily for prostate health Unchanged omega-3 polyunsaturated fatty acids (Fish Oil 1000 mg oral capsule) 1 Capsules By Mouth Every day Unchanged sildenafil (sildenafil 50 mg Tab) 1 Tablets By Mouth Every day as needed for Other (see comment) 1 hour before sexual activity Unchanged temazepam (temazepam 30 mg Cap) 1 Capsules By Mouth Once a day (at bedtime) as needed forfor sleep Pharmacy Information [facility]/pharmacy #[id number]: [address], [place] [id number] [phone] Test Results No qualifying data available. Allergies Neosporin (Rash) Problems Ongoing - Any problem that you are currently receiving treatment for. BPH (benign prostatic hyperplasia) History of kidney stones Microhematuria Prostate cancer Historical - Any problem that you are no longer receiving treatment for. Ureteral stone with hydronephrosis Devices Implanted/Removed This Visit Notice: You have devices implanted this visit that may not be MRI compatible. Implanted SHOULDER TOTAL ARTHR (more content not included)...[facility] CenterComment on above:Result Comment: Electronically Signed By: Jaspal ALVAREZ, Karoline Buckley\Date and Time Signed: 09/26/24 14:21 ESTMain OR PACU I Recordon 09-26-2024 Main OR PACU I RecordMain OR PACU I Record PACU Phase I Document Type FT Summary Primary Physician: Leyda Muse DO Finalized Date/Time: 09/26/24 13:59:01 Pt. Name: MATTY LIANG Pramod James/Sex: 1955 Male Med Rec #: [id number] Physician: Leyda Muse DO Financial #: [id number] Pt. Type: A Room/Bed: [place] [address] Admit/Disch: 09/26/24 07:59:07 - Institution: Case Times PACU I FT Pre-Care Text: Identifies barriers to communication and implements measures to provide psychological support Develops individualized plan of care, and ensures continuity of care Maintains patient's dignity and privacy, and maintains patient confidentiality Identifies and reports philosophical, cultural, and spiritual beliefs and values Identifies individual values and wishes concerning care Implements aseptic technique, and administers prescribed antibiotic therapy and immunizing agents as ordered Evaluates postoperative tissue perfusion Implements thermoregulation measures, and monitors body temperature Evaluates postoperative respiratory status Evaluates postoperative cardiac status Evaluates postoperative neurological status Assesses pain control, collaborated in initiating patient-controlled analgesia and implements alternative methods of pain control Verifies allergies, administers prescribed medications and solutions, evaluates response to medications Entry 1 In PACU I 09/26/24 12:30:00 Discharge from PACU 09/26/24 13:38:00 I Outcomes Met? Yes Last Modified By: Rosario Norton RN 09/26/24 13:58:39 Post-Care Text: The patient demonstrates knowledge of the expected response to the operative or invasive procedure The patient's care is consistent with the individualized perioperative plan of care The patient's rightto privacy is maintained The patient's value system, lifestyle, ethnicity, and culture are considered, respected, and incorporated into the perioperative plan of care The patient participates in decisions affecting his or her perioperative plan of care The patient is free from signs and symptoms of infection The patient has wound/tissue perfusion consistent with or improved from baseline levels established preoperatively The patient is at or returning to normothermia at the conclusion of the immediate postoperative period The patient's respiratory function is consistent with or improved from baseline levels established preoperativelyThe patient's cardiovascular status is consistent with or improved from baseline levels established preoperatively The patient's cardiovascular status is consistent with or improved from baseline levels established preoperatively The patient demonstrates and/or reports adequate pain control throughout the perioperative period The patient received appropriate medication(s), safely administered during the perioperativeperiod Acuity Level PACU I FT Entry 1 Start Time 09/26/24 12:30:00 Stop Time 09/26/24 13:38:00 Acuity Level Acuity Level I Last Modified By: Rosario Norton RN 09/26/24 13:58:54 Finalized By: Rosario Norton RN Document Signatures Signed By: Rosario Norton RN 09/26/24 13:59NoParkview Health Montpelier HospitalMain OR PACU II Recordon [id number] OR PACU II RecordMain OR PACU II Record PACU Phase II Document Type FT Summary Primary Physician: Leyda Muse DO Finalized Date/Time: 09/26/24 16:03:41 Pt. Name: MATTY LIANG/Sex: 1955 Male Med Rec #: [id number] Physician: Leyda Muse DO Financial #: [id number] Pt. Type: Room/Bed: [place] [address] Admit/Disch: 09/26/24 07:59:07 - 09/26/24 15:45:00 Institution: Case Times PACU II FT Pre-Care Text: Identifies barriers to communication and implements measures to provide psychological support and determines knowledge level Develops individualized plan of care, and ensures continuity of care Maintains patient's dignity and privacy, and maintains patient confidentiality Identifies and reports philosophical, cultural, and spiritual beliefs and values Identifies individual values and wishes concerning care administers prescribed antibiotic therapy and immunizing agents as ordered, Evaluates postoperative tissue perfusion Implements thermoregulation measures, and monitors body temperature Evaluates postoperative respiratory statusEvaluates postoperative cardiac status Evaluates postoperative neurological status Assesses pain control, collaborated in initiating patient-controlled analgesia and implements alternative methods of pain control Verifies allergies, administers prescribed medications and solutions, evaluates response to medications Entry 1 In PACU II 09/26/24 13:45:00 Discharge from PACU 09/26/24 15:45:00 II Outcomes Met? Yes Last Modified By: Rowan Garcia RN 09/26/24 16:03:39 Post-Care Text: The patient demonstrates knowledge of the expected response to the operative or invasive procedure The patient's care is consistent with the individualized perioperative plan of care The patient's rightto privacy is maintained The patient's value system, lifestyle, ethnicity, and culture are considered, respected, and incorporated into the perioperative plan of care The patient participates in decisions affecting his or her perioperative plan of care. The patient is free from signs and symptoms of infection The patient has wound/tissue perfusion consistent with or improved from baseline levels established preoperatively The patient is at or returning to normothermia at the conclusion of the immediate postoperative period The patient's respiratory function is consistent with or improved from baseline levels established preoperativelyThe patient's cardiovascular status is consistent with or improved from baseline levels established preoperatively The patient's neurological status is consistent with or improved from baseline levels established preoperatively The patient demonstrates and/or reports adequate pain control throughout the perioperative period The patient received appropriate medication(s), safely administered during the perioperativeperiod Finalized By: Rowan Garcia RN Document Signatures Signed By: Rowan Garcia RN 09/26/24 16:03[facility] CenterMain OR Preoperative Recordon [id number] OR Preoperative RecordMain OR Preoperative Record PreOp Document Type FT Summary Primary Physician: Leyda Muse DO Finalized Date/Time: 09/26/24 14:56:39 Pt. Name: MATTY LIANG/Sex: 1955 Male Med Rec #: [id number] Physician: Leyda Muse DO Financial #: [id number] Pt. Type: A Room/Bed: [place] [address] Admit/Disch: 09/26/24 07:59:07 - Institution: Case Times PreOp FT Pre-Care Text: Verifies consent for planned procedure, identifies individual values and wishes concerning care, includes family members in perioperative teaching Entry 1 Patient Times. In Pre Surgery 09/26/24 08:15:00 Out Pre Surgery 09/26/24 10:57:00 Outcomes Met? Yes Last Modified By: Arpan Rodriguez 09/26/24 14:56:32 Post-Care Text: The patient participates in decisions affecting his or her perioperative plan of care Finalized By: Arpan Rodriguez Document Signatures Signed By: Arpan Rodriguez 09/26/24 14:56 Arpan Rodriguez 09/26/24 14:56NoParkview Health Montpelier HospitalOperative Reporton [id number] ReportOperative Report Patient: MATTY LIANG Age: 68 years Sex: Male : 1955 Associated Diagnoses: None Author: Leyda Muse DO Health Status Allergies: Allergic Reactions (Selected) Severity Not Documented Neosporin- Rash. Review / Management Results review: Lab results 09/26/2024 8:38 EST ABO/Rh Interp O NEG ABSC Gel Interp Negative . Impression and Plan Diagnosis Pre-op dx-right shoulder oa/chronic rc tear Post-op dx-same Procedure-rt reverse TSA/bicep tenodesis Anesthesia-gen block EBL-100 cc TT-0 To Recovery Room in stable and satisfactory condition..[facility] CenterComment on above:Result Comment: Electronically Signed By: Leyda Muse DO\.br\Date and Time Signed: 09/26/24 12:24 ESTXR SHOULDER COMPLETE RIGHTon 09-26-2024 Exam Date/Time: 09/26/2024 12:51 EST Reason for Exam: Post Op Report IMPRESSION: POSTOP RIGHT GLENOHUMERAL SHOULDER PROSTHESIS.. CLINICAL HISTORY: Post Op. COMMENT: 2 views. There is a metallic reverse right glenohumeral shoulder prosthesis that appears in good position and alignment. There is gas in soft tissues from surgery. Ordering Provider: Leyda Muse FINAL REPORT Dictated: 09/26/2024 4:32 pm Teddy Langley M.D. Signed (Electronic Signature): 09/26/2024 4:32 pm Signed by: Teddy Langley M.D. Transcribed by: RUPAL Technologist: [facility], Radiologist, - 09/26/2024 Exam Date/Time: 09/26/2024 12:51 EST Reason for Exam: Post Op Report IMPRESSION: POSTOP RIGHT GLENOHUMERAL SHOULDER PROSTHESIS.. CLINICAL HISTORY: Post Op. COMMENT: 2 views. There is a metallic reverse right glenohumeral shoulder prosthesis that appears in good position and alignment. There is gas in soft tissues from surgery. Ordering Provider: Leyda Muse FINAL REPORT Dictated: 09/26/2024 4:32 pm Teddy Langley M.D. Signed (Electronic Signature): 09/26/2024 4:32 pm Signed by: Teddy Langley M.D. Transcribed by: RUPAL Technologist: [facility] HOSPITALHe HealthcareRadiology Study observation (narrative)[facility] HospitalXR SHOULDER COMPLETE RIGHTOrdered By: Radiologist Radiology on [id number] Work Phone: XR Shoulder Complete Righton 96-30-8046FM Shoulder Complete RightExam Date/Time: 09/26/2024 12:51 EST Reason for Exam: Post Op Report IMPRESSION: POSTOP RIGHT GLENOHUMERAL SHOULDER PROSTHESIS.. CLINICAL HISTORY: Post Op. COMMENT: 2 views. There is a metallic reverse right glenohumeral shoulder prosthesis that appears in good position and alignment. There is gas in soft tissues from surgery. Ordering Provider: Leyda Muse FINAL REPORT Dictated: 09/26/2024 4:32 pm Teddy Langley M.D. Signed (Electronic Signature): 09/26/2024 4:32 pm Signed by: Teddy Langley M.D. Transcribed by: RUPAL Technologist: LaylaAtrium Health Huntersvillexavier Brook Lane Psychiatric CenterInpatient Patient Summaryon [id number] Patient SummaryInpatient Patient Summary [place] [id number] [facility] Clinical Discharge Instructions PERSON INFORMATION Name: MATTY LIANG PHYSICIANS Admitting Physician: Leyda Muse DO Attending Physician: Leyda Muse DO PCP: MILES DONOVAN MD Discharge Diagnosis: Localized osteoarthritis of right shoulder Comment: PATIENT EDUCATION INFORMATION Instructions: Brown, J. - Shoulder Replacement (CUSTOM) Medication Leaflets: Follow up: With: Address: When: Leyda Muse [address] [place] [address] Business (1) Comments: Keep scheduled appointment Type Location Start [facility] Surgical Services 09/26/2024 12:30 PM 09/26/2024 2:15 PM Confirmed URO Nurse Visit [facility] 01/16/2025 8:45 AM 01/16/2025 9:00 AM Confirmed URO Office Visit [facility] 01/30/2025 11:15 AM 01/30/2025 11:30 AM Confirmed MEDICATION LIST Medications to Continue Taking That Have Changed Other Medications START: atorvastatin (atorvastatin 20 mg Tab) 1 Tablets By Mouth every day. START: diclofenac 75 Milligram By Mouth every day. START: docusate (Colace 100 mg Cap) 1 Capsules By Mouth 2 times a day as needed as needed for constipation. START: sildenafil (sildenafil 50 mg Tab) 1 Tablets By Mouth every day as needed Other (see comment). 1 hour before sexual activity. Medications to Continue with No Changes Other Medications acetaminophen (Tylenol Extra Strength 500 mg oral tablet) 2 Tablets By Mouth every 4 hours as needed for pain. amitriptyline (amitriptyline 25 mg Tab) 2 Tablets By Mouth once a day (at bedtime). multivitamin with minerals (Centrum Adults 50 Plus MultiGummies) Non-Formulary Medication Super Beta Prostate 2tabs daily for prostate health. omega-3 polyunsaturated fatty acids (Fish Oil 1000 mg oral capsule) 1 Capsules By Mouth every day. temazepam (temazepam 30 mg Cap) 1 Capsules By Mouth once a day (at bedtime) as needed for sleep. No Longer Take the Following Medications psyllium (Metamucil 400 mg oral capsule) 5 Capsules By Mouth 3 times a day. fiber with at least 8 ounces of water. Comment:[facility] CenterOutpatient Surgery Discharge Instructionon [id number] Surgery Discharge InstructionOutpatient Surgery Discharge Instruction [facility] [address], [place] [address] Patient Discharge Instructions PERSON INFORMATION Name: MATTY LIANG Date of : 1955 Current Date: 09/19/2024 13:10:16 PHYSICIANS Admitting Physician: Leyda Muse DO Discharge Diagnosis: Localized osteoarthritis of right shoulder MATTY LAING has been given the following list of follow-up instructions, prescriptions, and patient education materials: PATIENT FOLLOW-UP INFORMATION Diet: Regular, Drink liquids and eat a light meal Discharge Activity: Ambulate as tolerated, Arrange for a responsible adult supervision for 24 hours, Expect mild pain, Expect minimal amount of drainage and/or bleeding, Do not lift more than 5 lbs Discharge Restrictions: No driving, Do not operate machinery or tools, Do not make important decisions for 24 hours, Do not drink alcoholic beverages for 24 hours Call Your Doctor For: Persistent or heavy bleeding, Temperature above 101.5 degrees, Redness, swelling, or pus at operative site, Severe pain at the operative site, Persistent vomiting Wound Care Instructions: Remove dressing as instructed Additional Instructions: Sling for 4 weeks. IF UNABLE TO CONTACT YOUR PHYSICIAN AND YOU FEEL IT IS AN EMERGENCY, GO TO THE NEAREST EMERGENCY ROOM OR CALL 911 AZUL Dhillon LARRY L, have received the attached patient education materials/instructions and have verbalized understanding: May we do a follow up call? Yes No I was present when discharge instructions were given Patient Signature Date Clinican/Nurse Signature Date Follow up: With: Address: When: Leyda Muse [address] [place] [id number] Penxy (1) Comments: Keep scheduled appointment Type Location Start [facility] Surgical Services 09/26/2024 12:30 PM 09/26/2024 2:15 PM Confirmed URO Nurse Visit [facility] 01/16/2025 8:45 AM 01/16/2025 9:00 AM Confirmed URO Office Visit [facility] Brown 01/30/2025 11:15 AM 01/30/2025 11:30 AM Confirmed Pharmacy Information: You may receive a survey from [facility] asking you to rate your care experience. Your feedback is important and will help us understand what we do well and how we can improve the quality of care we provide to you, your loved ones and our community. It???s an honor to serve you. Thank you for choosing [facility] HERE ARE THE MEDICATION CHANGES THAT OCCURRED DURING YOUR HOSPITAL STAY Medications to Continue Taking That Have Changed Other Medications START: atorvastatin (atorvastatin 20 mg Tab) 1 Tablets By Mouth every day. START: diclofenac 75 Milligram By Mouth every day. START: docusate (Colace 100 mg Cap) 1 Capsules By Mouth 2 times a day as needed as needed for constipation. START: sildenafil (sildenafil 50 mg Tab) 1 Tablets By Mouth every day as needed Other (see comment). 1 hour before sexual activity. Medications to Continue with No Changes Other Medications acetaminophen (Tylenol Extra Strength 500 mg oral tablet) 2 Tablets By Mouth every 4 hours as needed for pain. amitriptyline (amitriptyline 25 mg Tab) 2 Tablets By Mouth once a day (at bedtime). multivitamin with minerals (Centrum Adults 50 Plus MultiGummies) Non-Formulary Medication Super Beta Prostate 2tabs daily for prostate health. omega-3 polyunsaturated fatty acids (Fish Oil 1000 mg oral capsule) 1 Capsules By Mouth every day. temazepam (temazepam 30 mg Cap) 1 Capsules By Mouth once a day (at bedtime) as needed for sleep. No Longer Take the Following Medications psyllium (Metamucil 400 mg oral capsule) 5 Capsules By Mouth 3 times a day. fiber with at least 8 ounces of water. PATIENT EDUCATION INFORMATION Instructions: [place], [place] [facility] DISCHARGE INSTRUCTIONS: SHOULDER REPLACEMENT MEDICATIONS You will be given a prescription for pain medication. This should be taken with food as needed. This may cause stomach upset, dizziness, and possible constipation. Please notify the office if you have any medication allergies to this type of medication or if any problems develop with the medication. DRESSING CHANGES Leave your bandage in place until your follow up visit. The bandage is waterproof, so you may shower it home. Any increase in pain, temperature over 101 degrees, redness, or drainage should be reported to the office prior to your first office visit. ACTIVITY You may continue to progress activity as comfortably tolerated with your opposite arm. You may begin to use your elbow, wrist, (more content not included)...[facility] CenterNo Panel Informationon 09-07-2024 Cristy Awan MA 09/19/2024 2:11 PM M Inj/Asp: R olecranon bursa on 09/07/2024 10:30 AM Indications: diagnostic evaluation Details: 25 G needle, ultrasound-guided Medications: 3 mg betamethasone acetate-betamethasone sodium phosphate 6 (3-3) MG/ML Outcome: tolerated well, no immediate complications Consent was given by the patient.Critical access hospitalXR Chest 2 Views on [id number] Chest 2 ViewsExam Date/Time: 08/29/2024 08:03 EST Reason for Exam: P.A.T. Report IMPRESSION: NO RADIOGRAPHIC EVIDENCE OF ACUTE INTRATHORACIC PROCESS. EXAMINATION: XR Chest 2 Views HISTORY: Preoperative evaluation TECHNIQUE: Frontal and lateral views of the chest. COMPARISON: Radiographs 07/15/2021 FINDINGS: Cardiomediastinal silhouette is within normal limits. No pneumothorax, pleural effusion, or consolidation. No acute osseous abnormality. Ordering Provider: Maxim Biswas FINAL REPORT Dictated: 08/30/2024 9:52 am Ascencion Rivas DO Signed (Electronic Signature): 08/30/2024 9:52 am Signed by: Ascencion Rivas DO Transcribed by: RUPAL Technologist: EmmaMetroHealth Parma Medical CenterBMPon [id number] gap [Moles/Vol]11 mmol/LNormal6-16[facility] Comment on above:Performed By: #### [id number] #### [facility] [address] [place], [place] [address]Guqtqcd [Mass/Vol]8.7 mg/dLLow8.9-11.1FCleveland Clinic South Pointe HospitalComment on above:Performed By: #### [id number] #### [facility] [address], [place] [address]Vyufhogc [Moles/Vol]106 mmol/LZeoxci168-907HpelyeMemorial Health SystemComment on above:Performed By: #### [id number] #### [facility] [address], [place] [address]JV4 [Moles/Vol]25 mmol/LSesiod34-80OafoypMemorial Health System Comment on above:Performed By: #### [id number] #### [facility] [address], [place] [address]Chipuyoyhw [Mass/Vol]1.3 mg/dLNormal0.5-1.3FCleveland Clinic South Pointe HospitalComment on above:Performed By: #### [id number] #### [facility] [address], [place] [address]Emggrfx [Mass/Vol]117 mg/eRIzxfzt38-667SffrcxMemorial Health SystemComment on above:Performed By: #### [id number] #### [facility] [address], [place] [address]Xcavfjnqb [Moles/Vol]3.9 mmol/LNormal3.5-5.3FCleveland Clinic South Pointe HospitalComment on above:Performed By: #### [id number] #### [facility] [address], [place] [address]Hukzrf [Moles/Vol]138 mmol/CPtnalq834-813BajwvkMemorial Health SystemComment on above:Performed By: #### [id number] #### [facility] [address], [place] [address]Udrb nitrogen [Mass/Vol]18 mg/dLNormal5-21[facility] Health SystemComment on above:Performed By: #### [id number] #### [facility] [address], [place] [address]Wtzp nitrogen/Creatinine [Mass ratio]14 No PnfidRsaegr32-14 [facility] Health SystemComment on above:Performed By: #### [id number] #### [facility] [address] [place] [address]DAN w/ Auto Diffon 08-28-4727Hojxchxpo/100 WBC (Bld)1.2 %Normal 0.0-2.0[facility] Health SystemComment on above:Performed By: #### [id number] #### [facility] [address] [place] [address]Odhuzqmvo/Leukocytes Auto (Bld) [Pure # fraction]0.1 E9/LNormal 0.0-0.2FCleveland Clinic South Pointe HospitalComment on above:Performed By: #### [id number] #### [facility] [address] [place] [address]Xfiqwlxdcsh (Bld) [#/Vol]0.2 E9/LNormal0.0-0.5FCleveland Clinic South Pointe HospitalComment on above:Performed By: #### [id number] #### [facility] [address] [place] [address]Gqaopefvsgv/100 WBC (Bld)2.8 %Normal0.0-8.0[facility] Health SystemComment on above:Performed By: #### [id number] #### [facility] [address] [place] [address]Ntjpbucyyxl distribution width (RBC) [Ratio]14.5 %High10.9-14.2 [facility] SystemComment on above:Performed By: #### [id number] #### [facility] [address] [place] [address]Nvjapkslfr (Bld) [Volume fraction]39.8 %Zmhfmo19.7-49.0[facility] Health SystemComment on above:Performed By: #### [id number] #### [facility] [address] [place] [address]Zrbblzholc (Bld) [Mass/Vol]13.4 g/dLLow13.5-17.5FCleveland Clinic South Pointe HospitalComment on above:Performed By: #### [id number] #### [facility] [address] [place] [address]Fseayemdekh (Bld) [#/Vol]1.6 E9/LNormal1.0-4.0[facility] Health SystemComment on above:Performed By: #### [id number] #### [facility] [address] [place] [address]Jezamhderwg/100 WBC (Bld)22.2 %Vuhxhl94.0-50.0[facility] Health SystemComment on above:Performed By: #### [id number] #### [facility] [address] [place] [address]KCV (RBC) [Entitic mass]27.4 svRedodc87.0-34.0[facility] Health SystemComment on above:Performed By: #### [id number] #### [facility] [address] [place] [address]JZDK (RBC) [Mass/Vol]33.6 g/uPYtxmnx68.4-36.0[facility] Health SystemComment on above:Performed By: #### [id number] #### [facility] [address] [place] [address]NBV (RBC) [Entitic vol]81.6 lJCavhah61.0-100.0[facility] Health SystemComment on above:Performed By: #### [id number] #### [facility] [address] [place] [address]Pbyugrzay (Bld) [#/Vol]0.6 E9/LNormal0.2-1.0[facility] SystemComment on above:Performed By: #### [id number] #### [facility] [address], [place] [address]Bshwdhqzubz (Bld) [#/Vol]4.8 E9/LNormal2.0-7.5FCleveland Clinic South Pointe HospitalComment on above:Performed By: #### [id number] #### [facility] [address], [place] [address]Vjijlirsqaz/100 WBC (Bld)65.9 %Ynzkoi00.0-75.0[facility] SystemComment on above:Performed By: #### [id number] #### [facility] [address] [place] [address]Zvvvvrxy292.0 E9/HJsckne913.0-500.0[facility] Comment on above:Performed By: #### [id number] #### [facility] [address] [place] [address]Kiyvnrer mean volume (Bld) [Entitic vol]8.3 fLNormal6.4-10.8 [facility] SystemComment on above:Performed By: #### [id number] #### [facility] [address] [place] [address]MKR (Bld) [#/Vol]4.9 E12/LNormal4.3-5.9[facility] SystemComment on above:Performed By: #### [id number] #### [facility] [address] [place] [address]SZZ corrected for nucl RBC Auto (Bld) [#/Vol]7.3 E9/LNormal 4.0-11.0[facility] SystemComment on above:Performed By: #### [id number] #### [facility] [address] [place] [address]IGIVHWKCADbqrper By: SYSTEM SYSTEM on 98-30-7475Rokyx gap [Moles/Vol]11 mmol/LNormal6 - 16 mEq/LRemisol ChemCalcium [Mass/Vol]8.7 mg/dLLow 8.9 - 11.1 mg/dLRemisol ChemChloride [Moles/Vol]106 mmol/ADbboca848 - 111 mmol/L Remisol ChemCO2 [Moles/Vol]25 mmol/SAzsstt64 - 31 mmol/LRemisol ChemCreatinine [Mass/Vol]1.3 mg/dLNormal0.5 - 1.3 mg/dLRemisol XcmhmACY70 mL/min/1.73 f5Yrujoq >=59mL/min/1.73 h7Tpwbroe ChemGlucose [Mass/Vol]117 mg/mGThieig90 - 199 mg/dL Remisol ChemPotassium [Moles/Vol]3.9 mmol/LNormal3.5 - 5.3 mmol/LRemisol Chem Sodium [Moles/Vol]138 mmol/HKcjoaw089 - 145 mmol/LRemisol ChemUrea nitrogen [Mass/Vol]18 mg/dLNormal5 - 21 mg/dLRemisol ChemUrea nitrogen/Creatinine [Mass ratio]14 mg/ksOktxtn05 - 20Remisol ChemHEMATOLOGYOrdered By: SYSTEM SYSTEM on 47-88-0439Eiofbkxbe/100 WBC (Bld)1.2 %Normal0.0 - 2.0 %Remisol Heme Basophils/Leukocytes Auto (Bld) [Pure # fraction]0.1 E9/LNormal0.0 - 0.2 E9/L Remisol HemeEosinophils (Bld) [#/Vol]0.2 E9/LNormal0.0 - 0.5 E9/LRemisol Heme Eosinophils/100 WBC (Bld)2.8 %Normal0.0 - 8.0 %Remisol HemeErythrocyte distribution width (RBC) [Ratio]14.5 %High10.9 - 14.2 %Remisol HemeHematocrit (Bld) [Volume fraction]39.8 %Nqepvx47.7 - 49.0 %Remisol HemeHemoglobin (Bld) [Mass/Vol]13.4 g/dLLow13.5 - 17.5 gm/dLRemisol HemeLymphocytes (Bld) [#/Vol]1.6 E9/LNormal1.0 - 4.0 E9/LRemisol HemeLymphocytes/100 WBC (Bld)22.2 %Phbyrz84.0 - 50.0 %Remisol HemeMCH (RBC) [Entitic mass]27.4 huIomuhx54.0 - 34.0 pgRemisol HemeMCHC (RBC) [Mass/Vol]33.6 g/nQImurdr19.4 - 36.0 gm/dLRemisol HemeMCV (RBC) [Entitic vol]81.6 tZOtcrwv15.0 - 100.0 fLRemisol HemeMonocytes (Bld) [#/Vol]0.6 E9/LNormal0.2 - 1.0 E9/LRemisol HemeMonocytes/100 WBC (Bld)7.9 %Normal4.0 - 14.0 %Remisol HemeNeutrophils (Bld) [#/Vol]4.8 E9/LNormal2.0 - 7.5 E9/LRemisol Heme Neutrophils/100 WBC (Bld)65.9 %Glpvdt33.0 - 75.0 %Remisol KovoVgigeqvo018.0 E9/L Dltbbm626.0 - 500.0 E9/LRemisol HemePlatelet mean volume (Bld) [Entitic vol]8.3 fLNormal6.4 - 10.8 fLRemisol HemeRBC (Bld) [#/Vol]4.9 E12/LNormal4.3 - 5.9 E12/L Remisol HemeWBC corrected for nucl RBC Auto (Bld) [#/Vol]7.3 E9/LNormal4.0 - 11.0 E9/LRemisol HemeUA WITH CULT RFLXon 08-29-2024 BILIRUBIN:PRTHR:PT:URINE:ORD:TEST STRIP.AUTOMATEDNegativeNegative mg/dLMercy Hospital South, formerly [facility] CLARITY:TYPE:PT:URINE:NOM:ClearClearMercy Hospital South, formerly [facility] CLASS:TYPE:PT:URINE COLLECTION METHOD:NOM:*Clean CatchMercy Hospital South, formerly [facility] COLOR:TYPE:PT:URINE:NOM:AUTOYellowYellowSaint John's Saint Francis HospitalComment on above: Microscopic readings are only performed on those samples that meet specific criteria set forth by [facility] PH:LSCNC:PT:URINE:QN:TEST STRIP5.55.0 - 9.0[facility] SPECIFIC GRAVITY:RDEN:PT:URINE:QN:TEST STRIP1.0251.005 - 1.030[facility] GLUCOSE:PRTHR:PT:URINE:ORD:TEST STRIPNegativeNegative mg/dL[facility] HEMOGLOBIN:MCNC:PT:URINE:SEMIQN:TEST STRIP.AUTOMATEDNegativeNegative mg/dLNOMS HealthcareKETONES:PRTHR:PT:URINE:ORD:TEST STRIP.AUTOMATEDNegativeNegative mg/dL NOMS HealthcareLEUKOCYTE ESTERASE:PRTHR:PT:URINE:ORD:TEST STRIP.AUTOMATED NegativeNegative CD:[id number] HealthcareNITRITE:PRTHR:PT:URINE:ORD:TEST STRIP.AUTOMATEDNegativeNegative mg/dL[facility] PROTEIN:PRTHR:PT:URINE:ORD:TEST STRIPNegativeNegative mg/dLN[facility] UROBILINOGEN:MCNC:PT:URINE:SEMIQN:TEST STRIPNegativeNegative mg/dLNOMS HealthcareOriginal Ordering Provider: DO Leyda Ballard [facility] HospitalMAHAMED with Cult Rflxon 00-26-5560Qbuhctvef Ql (U)NegativeNormalNegative [facility] SystemComment on above:Performed By: #### [id number] #### [facility] [address], [place] [address]Qmdhlrf (U)ClearNormalClearMemorial Health SystemComment on above:Performed By: #### [id number] #### [facility] [address], [place] [address]Qpujy (U)YellowNormalYellowMemorial Health SystemComment on above:Result Comment: Microscopic readings are only performed on those samples that meet specific criteria set forth by [facility].Performed By: #### [id number] #### [facility] [address], [place] [address]Inukuuj Ql (U)NegativeNormalNegativeMemorial Health System Comment on above:Performed By: #### [id number] #### [facility] [address], [place] [address]Espfijzrnw Auto test strip (U) [Mass/Vol]NegativeNormalNegative [facility] SystemComment on above:Performed By: #### [id number] #### [facility] [address], [place] [address]Ydtxeow Auto test strip Ql (U)NegativeNormalNegativeMemorial Health SystemComment on above:Performed By: #### [id number] #### [facility] [address] [place] [address]Hsdctedpl esterase Auto test strip Ql (U)NegativeNormalNegative [facility] SystemComment on above:Performed By: #### [id number] #### [facility] [address] [place] [address]Ueehcmt Auto test strip Ql (U)NegativeNormalNegMercy Health St. Charles HospitalComment on above:Performed By: #### [id number] #### [facility] [address] [place] [address]xI (U)5.5 [pH]Invalid Interpretation Code5.0-9.0[facility] Health SystemComment on above:Performed By: #### [id number] #### [facility] [address] [place] [address]Rwqzuhs Ql (U)[facility] GreensborormalNegMercy Health St. Charles Hospital Comment on above:Performed By: #### [id number] #### [facility] [address] [place] [address]Dahsreej gravity (U) [Rel density]1.025Invalid Interpretation Code1.005-1.030[facility] Health SystemComment on above:Performed By: #### [id number] #### [facility] [address], [place] [address]Vqkjbuurybsa (U) [Mass/Vol]NegativeNormalNegMercy Health St. Charles HospitalComment on above:Performed By: #### [id number] #### [facility] [address] [place] [address]Jqbe of Urine collection methodClean CatchNoParkview Health Montpelier HospitalComment on above:Performed By: #### [id number] #### [facility] [address], [place] [address]VCHFICHGOVSmgrdrq By: SYSTEM SYSTEM on 50-04-7720Wmoottzqu Ql (U)NegativeNormalNegativemg/dLFT UA Auto SSClarity (U)Clear (08/29/24 7:49 AM)NormalClearFPURCELL M[facility] UA Auto SSColor (U)Yellow 1 (08/29/24 7:49 AM)NormalYellowALLIANCEHEALTH [facility] UA Auto SSComment on above:Interpretive Data: Microscopic readings are only performed on those samples that meet specific criteria set forth by [facility].Glucose Ql (U) NegativeNormalNegativemg/dLFT UA Auto SSHemoglobin Auto test strip (U) [Mass/Vol]NegativeNormalNegativemg/dLFT UA Auto SSKetones Auto test strip Ql (U)NegativeNormalNegativemg/dLALL[facility]ANCEHEALTH [facility]A Auto SSLeukocyte esterase Auto test strip Ql (U)NegativeNormalNegativeLeu/uLFT UA Auto SSNitrite Auto test strip Ql (U) NegativeNormalNegativemg/dLALL[facility] Auto SSpH (U)5.5 *NA* (08/29/24 7:49 AM)Invalid Interpretation Code5.0 - 9.0FT UA Auto SSProtein Ql (U)NegativeNormalNegativemg/dLALL[facility] Auto SSSpecific gravity (U) [Rel density] 1.025 *NA* (08/29/24 7:49 AM)Invalid Interpretation Code1.005 - 1.030[facility] Auto SS Urobilinogen (U) [Mass/Vol]NegativeNormalNegativemg/dLALL[facility]HE[facility] Auto SSURINALYSIS Ordered By: Deepa Gardner on [id number] Spec DescClean Catch (08/29/24 7:49 AM)NormalALLIANCEHEALTH [facility] UA Auto SSeGFRon [id number] mL/min/1.73 m2 Normal>=59Fisher [address] Psychiatric CenterComment on above:Performed By: #### [id number] #### [facility] [address] [place], [place] [address]NV SHOULDER RIGHT WO IV CONTRASTon [id number] SHOULDER RIGHT WO IV CONTRASTCT SHOULDER RIGHT WO IV CONTRAST HISTORY:Right shoulder pain, osteoarthritis TECHNIQUE: Routine CT of the right shoulder without contrast for presurgical planning. CONTRAST: None. All CT scans at this facility use dose modulation, iterative reconstruction, and/or weight based dosing when appropriate to reduce radiation dose to as low as reasonably achievable. COMPARISON: Radiographs 07/28/2024. RESULT: No acute fracture. No dislocation. Advanced glenohumeral osteoarthritis with subchondral cystic change, osteophytes, diffuse joint space narrowing, and bony remodeling. Mild to moderate degenerative changes of the acromioclavicular joint. Rotator cuff musculature grossly within normal limits with the tendons not well assessed on this study. Visualized lungs/thorax without evidence for acute finding. Partially imaged enlarged thyroid. Subcutaneous tissues unremarkable. IMPRESSION: Advanced glenohumeral osteoarthritis. ELECTRONICALLY SIGNED BY: Sabi Walter AvailableComment on above: Order Comment: Send to Fei WrightAmbulatory Visit Summaryon 08-01-2024 Ambulatory Visit SummaryAmbulatory Visit Summary MATTY LIANG :1955 Visit Date:08/01/2024 Ambulatory Visit Instructions Your Diagnosis Prostate cancer BPH (benign prostatic hyperplasia) History of kidney stones Your Care Team Attending Physician - JUANA HOGAN, Teodora Weber Primary Care Physician - MILES DONOVAN MD This Is Your Medications List Contact prescribing physician if questions or concerns acetaminophen (Tylenol Extra Strength 500 mg oral tablet) amitriptyline (amitriptyline 25 mg Tab) atorvastatin (atorvastatin 20 mg Tab) diclofenac docusate (Colace 100 mg Cap) psyllium (Metamucil 400 mg oral capsule) sildenafil (sildenafil 50 mg Tab) temazepam (temazepam 30 mg Cap) Procedures Performed Transrectal needle biopsy of prostate (07/18/2024), Total knee arthroplasty (01/23/2020), Arthroscopy of knee, Bone spur of left foot, Excision of ganglion cyst of wrist, recurrent, Excision of peripheral neuroma, History of spinal fusion, History of tonsillectomy, History of total knee arthroplasty, Repair of left direct inguinal hernia, Repair of right direct inguinal hernia, Varicose vein stripping. Discharge Vitals Temperature (Temporal Artery) 37 ???C Heart Rate (Peripheral) 79 Respiratory Rate 18 Blood Pressure 138/87 Height 187 cm Height 74 in Weight 129 kg Weight 284.396 lb BMI 36.89 What to do next Scheduled Follow-Up Appointments Thursday 8:45 AM EDT With: Where: [facility] [address] [place] [address]- Thursday 11:15 AM EDT With: Teodora ARIAS MD Where: [facility] [address] [place] [address]- You Need to Schedule the Following Appointments Follow Up with Teodora ARIAS MD, URL When: Where: [facility] [address] [place] [address], [place] [address]- Medications What How Much When Instructions Unchanged [...] times a day Contact prescribing physician if questionsor concerns Unchanged docusate (Colace 100 mg Cap) [...] Once a day (at bedtime) as needed forfor sleep Contact prescribing physician if questions or concerns Allergies Neosporin (Rash) Problems Ongoing - Any problem that you are currently receiving treatment for. BPH (benign prostatic hyperplasia) History of kidney stones Microhematuria Prostate cancer Historical - Any problem that you are no longer receiving treatment for. Ureteral stone with hydronephrosis Patient Survey You may receive a survey via text or e-mail asking about your office visit. Please share your experience with us by completing your survey. We appreciate your feedback and thank you for choosing us for your care. Education Materials Prostate Cancer The prostate is a small gland that produces fluid that makes up semen (seminal fluid). It is located below the bladder in men, in front of the rectum. Prostate cancer is the abnormal growth of cells in the prostate gland. What are the causes? The exact cause of this condition is not known. What increases the risk? You are more likely to develop this condition if: ??? You are 65 years of age or older. ??? You have a family history of prostate cancer. ??? You have a family history of breast and ovarian cancer. ??? You have genes that are passed from parent to child (inherited), such as BRCA1 and BRCA2. ??? You have [place]o syndrome. men and men of descent are diagnosed with prostate cancer at higher rates than other men. The reasons for this are not well understood and are likely due to a combination of genetic and environmental factors. What are the signs or symptoms? Symptoms of this condition include: ??? Problems with urination. This may include: ? A weak or interrupted flow of urine. ? Trouble starting or stopping urination. ? Trouble emptying the bladder all the way. ? The need to urinate more often, especia (more content not included)...Normal [facility] Office/Clinic Noteon [id number] Office/Clinic NoteUrology Office/Clinic Note Chief Complaint elevated PSA HPI Staff Pt is here for f/u to TRUS BX done 07/18/24 to review pathology DX: elevated PSA, BPH and hx of kidney stones Dysuria: denies Incomplete bladder emptying: denies Hematuria: pt states that since the biopsy he has had a hard stool he notices a little blood in hisurine. Last time was yesterday Frequency: denies Urgency: denies Nocturia: 1-2x Stream: no straining or intermittency Leaking: denies Post void dripping: denies Wearing pads/ Depends: denies Urge incontinence: denies Stress incontinence: denies Incontinence without Sensory Awareness: denies Abdominal pain: denies Flank pain: denies Sexual complaints: denies History of Present Illness Tests reviewed: UA, op note, path I have reviewed the previous health record information and history for this patient from Dr. Arias. I have reviewed and verified the staff [...] Physical Exam Vitals & Measurements T: 37 ???C(Temporal Artery) HR: 79(Peripheral) RR: 18 BP: 138/87 HT: 74 in HT: 187 cm WT: 129 kg WT: 284.396 lb BMI: 36.89 General Appearance: alert, no distress, well nourished, well developed male. Assessment/Plan 1. Prostate cancer (C61: Malignant neoplasm of prostate) PSA 12/06/07 - 1.54 10/04/09 - 1.25 ... 04/08/23 - 4.11 04/08/24 - 5.89 MRI prostate 06/14/24 - Neg. Suggestive of prior prostatitis. Prostate volume 115 cc. TRUS/bx 07/18/24 - G6 (3+3) x 1 core (R4), GG1, ~4% of submitted tissue involved. HGPIN x 1 core (L4). UA shows large blood wo signs of infection. Still having gross hematuria. Expected after procedure.Will cont to monitor for resolution with time and healing. The pathology report, which shows the presence of low grade, low volume prostate cancer, was disclosed to the patient in detail today. Educated pt on Nidia scoring system. I discussed active surveillance (PSA and MARIAN q6mos, confirmatory bx 1 yr after original bx) with the pt. Given low volume of prostate ca, great candidate for . I went over the pros and cons of today. Pt agreeable to start . Pt does donate blood regularly, explained he will likely be refused due to new dx. May have to wait two yrs. Donated blood 3 days ago, recommended contacting the [place] just in case. Follow up 6 mos with PSA and MARIAN or sooner if needed. Pt understands and agrees with plan. -Start active surveillance. 2. BPH (benign prostatic hyperplasia) (N40.0: Benign prostatic hyperplasia without lower urinary tract symptoms) Not taking any BPH meds. 3. History of kidney stones (Z87.442: Personal history of urinary calculi) KUB 02/12/23 for left abdominal pain - Neg. KUB 03/10/23 - Neg. KUB 04/11/24 TBH - Neg. Follow-up With When Contact Information JUANA HOGAN, Teodora [place], URL [facility] [address] [place] [address]- Additional Instructions: 6 mos with PSA and MARIAN (). with nurse visit a wk prior for blood draw Patient Education Prostate Cancer I, Felicia Brunson, personally scribed for Dr. Arias on 08/01/2024 10:41:07. . Documentation recorded by the scribe, Felicia Brunson, accurately reflects the services(s) I performed and decisions made by me. Authenticated by Dr. Arias on 08/01/2024 10:45:16. Problem List/Past Medical History Ongoing BPH (benign prostatic hyperplasia) History of kidney stones Microhematuria Prostate cancer Historical Ureteral stone with hydronephrosis Procedure/Surgical History Transrectal needle biopsy of prostate (07/18/2024), Total knee arthroplasty (01/23/2020), Arthroscopy of knee, [...] oral tablet, 1000 mg= 2 tab(s), Oral, q4h (more content not included)...[facility] CenterComment on above:Result Comment: Electronically Signed By: Teodora ARIAS MD\.br\Date and Time Signed: 08/01/24 10:45 EST\.br\Electronically Co-Signed By: Felicia Brunson\.br\Date and Time Co-Signed: 08/01/24 10:41 ESTPathology Request for Lab Bibiana on [id number] Request for Lab CorpNoECU Health [facility] Comment on above:Order Comment: PATHOLOGY UROLOGY SPECIMENResult Comment: See report. Scanned copy available in EMR. PERFORMED BY: [place] [address] PATHOLOGIST TC OPERATOR CESIA MEHTA M.D.Performed By: #### PATH TO [facility] #### [place] [address] USAISTAT XRay CREon [id number] [Mass/Vol]1.4 mg/dL High0.6-1.3The [facility] Physician GroupComment on above:Result Comment: ER/ESD physician is notified/shown all ISTAT results. Critical values may be confirmed by laboratory testing if deemed necessary by ER attending doctor.Performed By: #### ISCRE #### [place] [address] USAISTAT GFR54.070NoECU Health Chowan Hospital Physician GroupComment on above:Result Comment: PERFORMED BY: [place] [address] PATHOLOGIST TC OPERATOR CESIA MEHTA M.D.Performed By: #### ISCRE #### [place] [address] USAMR prostate wo/w conon [id number] prostate wo/w con [facility] [place] [address] [place] [address] MRI Report Signed Patient: Matty Liang MR#: [id number] 37 : 1955 Acct:[id number] Age/Sex: 68 / M ADM Date: 06/14/24 Loc: MR Room: Type: [facility] Attending Dr: Teodora Arias MD Copies to: Teodora Arias MD Ordering Provider: Teodora Arias MD Date of Service: 06/14/24 MR/MR prostate [...] Coles Jr., D.O.06/14/2024 3:21 PM Dictation Location: [place] [address] Transcribed By: [facility] 06/14/24 1521 Dictated By: Alirio Coles Jr, DO 06/14/24 1514 Signed By: 06/14/[address] [place] [address] Physician GroupAmbulatory Visit Summaryon [id number] Visit SummaryAmbulatory Visit Summary RITAMATTY HUDSON Pramod :1955 Visit Date:04/18/2024 Ambulatory Visit Instructions Your Diagnosis Elevated PSA History of kidney stones BPH (benign prostatic hyperplasia) Tests Performed MRI Pelvis (Soft Tissue) w/ + w/o contrast -- Results Pending -- Please visit your patient portal for your results or contact your primary care physician. Your Care Team Attending Physician - Teodora ARIAS MD Primary Care Physician - MILES DONOVAN MD This Is Your Medications List [...] Where: [facility] [address] , [place] [phone] Medications What How Much When Instructions Unchanged [...] times a day Contact prescribing physician if questionsor concerns Unchanged docusate (Colace 100 mg Cap) [...] Once a day (at bedtime) as needed forfor sleep Contact prescribing physician if questions or [...] near your rectum, especially while sitting. ? [place]-colored urine due to small amounts of blood in your urine. ? A burning feeling while urinating. ? Blood in your stool (feces) or bleeding from your rectum. ? Blood in your semen. Follow these instructions at home: Medicines ? Take toij-usf-ngezrvh and prescription medicines only as told by your health care provider. ? If you were given a sedative during your procedure, it can affect you for several hours. Do not drive or operate machinery until your health care provider says that it is safe. ? If you were prescribed an antibiotic medicine, take it as told by your health care provider. Do notstop using the antibiotic even if you start [...] keep your urine pa (more content not included)...Normal [facility] SystemU[facility] Office/Clinic Noteon [id number] Office/Clinic NoteUrology Office/Clinic Note Chief Complaint 1 year f/u [...] and history for this patient from Dr. Arias. I have reviewed and verified the staff [...] or bladder or surrounding tissues, injury from positioningon the table, swelling and bruising of the skin, and need for further procedures. 2. History of kidney stones (Z87.442: Personal history of urinary calculi) S/p Cysto/L URS/laser litho/basket extraction/L stent/clot evacuation 09/11/22. First stone event. Stone analysis - 100% CaOx [place]. S/p Cysto/L stent removal 09/23/22. KUB 02/12/23 [...] Follow-up With When Contact Information JUANA HOGAN, Teodora [place], URL [facility] [address], [place] [phone] Additional Instructions: f/u pending prostate MRI and biopsy Patient Education Transrectal Ultrasound-Guided Prostate Biopsy, Care After Transrectal Ultrasound-Guided Prostate Biopsy Magnetic Resonance Imaging IMily, personally scribed for Dr. Arias on 04/18/2024 09:22:15. . Documentation recorded by the scribe, Mily Madrigal, accurately reflects the services(s) I performed and decisions made by me. Authenticated by Dr. Arias on 04/18/2024 09:23:56. Problem List/Past Medical History [...] q4hr, PRN Allergies N (more content not included)...[facility] Medical CenterComment on above:Result Comment: Electronically Signed By: Teodora ARIAS MD\.br\Date and Time Signed: 04/18/24 09:24 EDT\.br\Electronically Co-Signed By: Mily Madrigal.br\Date and Time Co-Signed: 04/18/24 09:22 EDTCALCULI, URINARYon 09-16-2022 2,8 DihydroxyadenineMercy Health Fairfield HospitalComment on above:Performed By: #### CALCULI #### [facility] [address] [place] [address] Dr. Tana NorthAmmonium Acid UrateNormalCleveland Clinic Union HospitalComment on above: Performed By: #### CALCULI #### [facility] [address] [place] [address] Dr. aTna NorthBilirubin Ql (U)[facility] HospitalComment on above: Performed By: #### CALCULI #### [facility] [address] [place] [address] Dr. Tana Diggs Oxalate DihydrateNormalCleveland Clinic Union HospitalComment on above: Performed By: #### CALCULI #### [facility] [address] [place] [address] Dr. Tana DiggsHPO4 (Brushite)[facility] HospitalComment on above: Performed By: #### CALCULI #### [facility] [address] [place] [address] Dr. Tana Menaium BilirubinateNormalCleveland Clinic Union HospitalComment on above: Performed By: #### CALCULI #### [facility] [address] [place] [address] Dr. Tana Menaium CarbonateNoAultman Orrville HospitalComment on above: Performed By: #### CALCULI #### [facility] [address] [place] [address] Dr. Tana Menaium Oxalate Qhnyfgvfbut059 %[facility] Comment on above:Performed By: #### CALCULI #### [facility] [address] [place] [address] [address] Tana Menaium UC HealthComment on above: Performed By: #### CALCULI #### [facility] [address] [place] [address] [address] Tana Menaium PhosphateMercy Health Fairfield HospitalComment on above: Performed By: #### CALCULI #### [facility] [address] [place] [address] [address] Tana Bartlett StearKettering Health HamiltonComment on above: Performed By: #### CALCULI #### [facility] [address] [place] [address] [address] Tana Salazar ApaChillicothe HospitalComment on above: Performed By: #### CALCULI #### [facility] [address] [place] [address] [address] Tana Lynch MaterialMercy Health Fairfield HospitalComment on above: Performed By: #### CALCULI #### [facility] [address] [place] [address] [address] Tana NorthCholesterolProMedica Defiance Regional Hospital on above:Performed By: #### CALCULI #### [facility] [address] [place] [address] [address] Tana Liu (U)[facility]iffin HospitalComment on above: Performed By: #### CALCULI #### [facility] [address] [place] [address] [address] Tana LintonmentMercy Health Fairfield HospitalComtrinity health grand haven hospital on above:Performed By: #### CALCULI #### [facility] [address] [place] [address] [address] Tana MolinaRegional Medical Center on above:Result Comment: Calculus received wet. Wet calculi must be dried before analysis, which delays reporting of results. Leaving calculi wet (such as water, saline, blood, urine) may lead to changes in composition.Performed By: #### CALCULI #### [facility] [address] [place] [address] Dr. Tana Lintonment:CommentProMedica Defiance Regional Hospital on above:Result Comment: Physician questions regarding Calculi Analysis contact LabWashington University Medical Center at: [phone].Performed By: #### CALCULI #### [facility] [address] [place] [address] Dr. Tana NorthCompositionRegional Medical Center on above: Result Comment: Percentage (Represents the % composition)Performed By: #### CALCULI #### [facility] [address] [place] [address] Dr. Tana NorthCystineProMedica Defiance Regional Hospital on above:Performed By: #### CALCULI #### [facility] [address] [place] [address] Dr. Tana Newellmer:CommentProMedica Defiance Regional Hospital on above: Result Comment: This test was developed and its performance characteristics determined by [facility]. It has not been cleared or approved by the Food and Drug Administration.Performed By: #### CALCULI #### [facility] [address] [place] [address] Dr. Tana Castañedaied BloodProMedica Defiance Regional Hospital on above:Performed By: #### CALCULI #### [facility] [address] [place] [address] Dr. Tana NorhtDrug or MetaboliteProMedica Defiance Regional Hospital on above: Performed By: #### CALCULI #### [facility] [address] [place] [address] Dr. Tana NorthHydroxyapatiteProMedica Defiance Regional Hospital on above: Performed By: #### CALCULI #### [facility] [address] [place] [address] Dr. Tana NorthMg NH4 PO4 (Struvite)NormalUniversity Hospitals Geneva Medical Center on above: Performed By: #### CALCULI #### [facility] [address] [place] [address] Dr. Tana Chew ([facility] on above: Performed By: #### CALCULI #### [facility] [address] [place] [address] [address] Tana Arteaga component(s)[facility] HospitalComtrinity health grand [facility] hospital on above: Performed By: #### CALCULI #### [facility] [address] [place] [address] [address] Tana Lira.[facility] on above:Performed By: #### CALCULI #### [facility] [address] [place] [address] [address] Tana LizamaProMedica Defiance Regional Hospital on above:Result Comment: Photograph will follow under a separate coverPerformed By: #### CALCULI #### [facility] [address] [place] [address] [address] Tana Lyles note:CommentProMedica Defiance Regional Hospital on above: Result Comment: Calculi report will follow via computer, mail or knife sharpener delivery.Performed By: #### CALCULI #### [facility] [address] [place] [address] [address] T[address] HortonGjlkrEdko[address]q1WdzludZfk[address] [place] [address] on above:Result Comment: Multiple pieces received. Dimensions of the largest piece reported.Performed By: #### CALCULI #### [facility] [address] [place] [address] [address] Tana Shrestha Acid UrateNSycamore Medical Center on above: Performed By: #### CALCULI #### [facility] [address] [place] [address] [address] Tana MurciaProMedica Defiance Regional Hospital on above:Result Comment: Left UreterPerformed By: #### CALCULI #### [facility] [address] [place] [address] [address] Tana BedollaProMedica Defiance Regional Hospital on above:Performed By: #### CALCULI #### [facility] [address] [place] [address] [address] Tana Gonzalez AcidMercy Health Fairfield HospitalComment on above:Performed By: #### CALCULI #### [facility] [address] [place] [address] Dr. Tnaa Gonzalez Acid DihydrateNormalCleveland Clinic Union HospitalComment on above: Performed By: #### CALCULI #### [facility] [address] [place] [address] Dr. Tana NorthWeight17.0 mgMercy Health Fairfield HospitalComment on above: Performed By: #### CALCULI #### [facility] [address] [place] [address] Dr. Tana NorthXanthineMercy Health Fairfield HospitalComment on above:Performed By: #### CALCULI #### [facility] [address] [place] [address] Dr. Fajardo ChangECHOCARDIO M/2D COMPLETEon [id number] M/2D COMPLETE Patient: MATTY LIANG Exam Date: 09/02/2022 : 1955 Gender:M Ordering : DR TEODORA ARIAS . Admission #: [id number] Family : Order #: [id number] CLICK HERE TO VIEW EXAM ECHOCARDIOGRAM REPORT [...] by: Jabier Smith M.D. on 09/02/2022 at 20:10Mer[facility] Fairfield HospitalXR KUB 1 VIEWon [id number] KUB 1 VIEWEXAMINATION: XR KUB 1 VIEW HISTORY: Kidney stone [...] Electronically authenticated by: AYLIN MENDEZ Date: 2022-08-25 16:14[facility] Vital Signs Date TimeVital SignValuePerforming UvyqjkmbeRlxpxutf43-98-7081 10:46-0400Body .9 cmMichael Muse DO Work Phone: NOChildren's Mercy HospitalQjltycsikm19-42-2582 10:46-0400Body mass index (BMI) [Ratio]38.79 kg/r1Dnawzki Muse DO Work Phone: NOChildren's Mercy HospitalEzrumtvxix39-29-6665 10:46-0400Body .73 kgMichael Muse DO Work Phone: NOOK Tqtdhygcld77-73-2681 08:15-0400Body .9 cmMichael Muse DO Work Phone: [facility]ymsee Oytciyikyi99-28-7726 08:15-0400Body mass index (BMI) [Ratio]38.79 kg/q6Zsznpgg Muse DO Work Phone: [place] Gmsirlsbto32-07-7657 08:15-0400Body tmnrxi428.73 kgMichael Muse DO Work Phone: [phone] [place], [place] [address]Dqgkjeydcb94-20-0610 08:15-0400Body jejzqx031.9 cmMichael Muse DO Work Phone: [phone] [place], [place] 8243104-29-2025 08:15-0400Body mass index (BMI) [Ratio]38.79 kg/m0Dpfafkg Muse DO Work Phone: [phone] [place], [place] 8243104-29-2025 08:15-0400Body .73 kgMichael Muse DO Work Phone: [phone] [place], [place] 8243103-03-2025 14:50-0500Heart rate70 /min Leyda Eleni [address] [place], [place] 5654903-03-2025 14:50-5533OuU8% (BldA) [Mass fraction]92 %Leyda Eleni [address]03-03-2025 14:48-0500 Diastolic blood mm[Hg]Leyda Eleni [address]03-03-2025 14:48-0500Mean blood pcnbjihk214 mm[Hg]Leyda Eleni [address] [place] 1712003-03-2025 14:48-0500 Systolic blood zrgmeami474 mm[Hg]Leyda Eleni [address] [place], [place] 1712003-03-2025 14:48-0500Body qyhariuskwh52.88 [degF]Leyda Eleni [address] [place], [place] 1712003-03-2025 13:46-0500Heart rate73 /minDuanealma Muse [address] [place], [place] 1712003-03-2025 13:46-6149FaQ4% (BldA) [Mass fraction]93 %Leyda Eleni [address] [place], [place] 1712003-03-2025 13:46-0500 Respiratory rate16 /minLeyda Muse [address] [place], [place] 1712003-03-2025 13:45-0500Blood Pressure LocationMichael Muse [address] [place], [place] 1712003-03-2025 13:45-0500 Diastolic blood aattgfge12 mm[Hg]Leyda Eleni [address] [place], [place] 1712003-03-2025 13:45-0500Mean blood fpujvnxg250 mm[Hg]Leyda Eleni [address] [place], [place] 1712003-03-2025 13:45-0500 Systolic blood ulrxsgef379 mm[Hg]Leyda Eleni [address]03-03-2025 13:45-2011CkD9% (BldA) [Mass fraction]99 %Leyda Eleni [address] [place], [place] 5654903-03-2025 13:35-0500Body rhisffjgukk91.34 [degF]Leyda Eleni [address]03-03-2025 13:35-0500 Diastolic blood hrkuefep69 mm[Hg]Leyda Eleni [address] [place], [place] 1712003-03-2025 13:35-0500Heart rate75 /minMichael Muse [address] [place], [place] 1712003-03-2025 13:35-0500 Respiratory rate13 /minMichael Muse [address] [place], [place] 1712003-03-2025 13:35-0500 Systolic blood yheirlnh129 mm[Hg]Leyda Eleni [address] [place], [place] 1712003-03-2025 13:30-0500 Respiratory rate19 /minMichael Muse [address] [place], [place] 1712003-03-2025 13:15-0500 Respiratory rate18 /minMichael Muse [address] [place], [place] 1712003-03-2025 12:30-0500Body tocxxgchwam27.7 [degF]Leyda Muse [address] [place], [place] 5654903-03-2025 12:25-3476VRK3 100 1Michjane Muse [address] [place], [place] 5654903-03-2025 12:25-0500 Respiratory rate17 /minMichael Muse [address] [place], [place] 5654903-03-2025 12:20-8412MPS4 100 1Michael Muse [address] [place], [place] 1712003-03-2025 12:20-0500 Respiratory rate26 /minMichael Muse [address] [place], [place] 5654903-03-2025 12:15-6824QLP0 60 1Michjane Muse [address] [place], [place] 5654903-03-2025 08:19-0500Blood Pressure LocationMichael Muse [address] [place], [place] 5654903-03-2025 08:19-0500Mean blood mm[Hg]Leyda Eleni [address] [place], [place] 5654903-03-2025 08:16-0500Body qxdxfhybklq19.7 [degF]Leyda Eleni [address] [place], [place] 5654903-03-2025 08:16-0500Blood Pressure LocationMicalma Muse [address] [place], [place] 5654902-12-2025 08:28-0500Body bfnill172.9 cmMichael Muse DO Work Phone: [phone] [place], [place] 8243102-12-2025 08:28-0500Body mass index (BMI) [Ratio]38.79 kg/j6Trlupse Muse DO Work Phone: [phone] [place], [place] 8243102-12-2025 08:28-0500Body .73 kgMichael Muse DO Work Phone: [phone] [place], [place] 8243102-03-2025 07:38-0500Diastolic blood jkukxxmv52 mm[Hg]Leyda Muse [address] [place], [place] 5654902-03-2025 07:38-0500Heart rate85 /minMichael Eleni [address] [place], [place] 1712002-03-2025 07:38-0500Mean blood nrulovre483 mm[Hg]Leyda Muse [address] [place], [place] 5654902-03-2025 07:38-0500 Systolic blood hsdxeyyp569 mm[Hg]Leyda Muse [address] [place], [place] 5654902-03-2025 07:37-0500Heart rate85 /minMichael Eleni [address] [place], [place] 5654902-03-2025 07:37-3037QtQ8% (BldA) [Mass fraction]97 %Leyda Muse [address] [place], [place] 5654902-03-2025 07:37-0500 Diastolic blood jmflohza06 mm[Hg]Leyda Muse [address] [place], [place] 5654902-03-2025 07:37-0500Mean blood sqypjwif322 mm[Hg]Leyda Muse [address] [place], [place] 5654902-03-2025 07:37-0500 Systolic blood letzxqlb070 mm[Hg]Leyda Muse [address] [place], [place] 5654901-23-2025 09:44-0500Body syzvld100.9 cmMicalma Muse DO Work Phone: [phone] [place], [place] 8243101-23-2025 09:44-0500Body mass index (BMI) [Ratio]38.79 kg/z2Pykxivu Muse DO Work Phone: [phone] [place], [place] 8243101-23-2025 09:44-0500Body edfwpn949.73 kgMichael Muse DO Work Phone: [phone] [place], [place] 8243101-06-2025 09:48-0500[facility] in [facility]01-06-2025 09:48-0500Body didadlrxzlt32.6 [degF]Teodora ARIAS [facility]01-06-2025 09:48-0500Diastolic blood okuutheg58 mm[Hg]Teodora JUANA [facility]01-06-2025 09:48-0500Heart rate79 /minPatrick JUANA [facility]01-06-2025 09:48-0500Respiratory rate18 /minPatrick JUANA [facility]01-06-2025 09:48-0500Systolic blood mm[Hg]Teodora JUANA [facility]01-02-2025 10:01-0500Body mypymr335.9 cmMichael [employer] DO Work Phone: [phone] [place], [place] [address]Rvdzaudlbs76-23-5352 10:01-0500Body mass index (BMI) [Ratio]38.79 kg/s2Ftzvlxe Muse DO Work Phone: [phone] [place], [place] [address]Twemhevtym49-93-4374 10:01-0500Body .73 kgMichael [employer] DO Work Phone: [phone] [place], [place] [address]Dninftsdsf68-04-3645 08:38-0400Blood Pressure LocationPatricemmett ARIAS [facility]09-23-2024 08:38-0400Body oxvslghpfac96.6 [degF]Teodora ARIAS [facility]09-23-2024 08:38-0400Diastolic blood iofudnzm72 mm[Hg]Teodora ARIAS [facility]09-23-2024 08:38-0400Heart rate79 /minPatrick ARIAS [facility]09-23-2024 08:38-0400Respiratory rate18 /minPatrick ARIAS [facility]09-23-2024 08:38-0400Systolic blood qjpregyz818 mm[Hg]Teodora ARIAS [facility]08-28-2023 09:49-0400Blood Pressure LocationPatrick Dine in [facility]08-28-2023 09:49-0400Body .24 [degF]Teodora ARIAS [facility]08-28-2023 09:49-0400Diastolic blood kknilmav98 mm[Hg]Teodora ARIAS [facility]08-28-2023 09:49-0400Heart rate79 /minPatrick ARIAS [facility]08-28-2023 09:49-0400Respiratory rate16 /minPatrick ARIAS [facility]08-28-2023 09:49-0400Systolic blood unloypba495 mm[Hg]Teodora Dine in [facility]07-26-2023 14:00-0400Body laoxls267.23 cmImad Asaad Other [employer] Other 07-26-2023 14:00-0400Body mass index (BMI) [Ratio]34.2 kg/m2Imad Asaad Other [employer] Other 07-26-2023 14:00-0400Body ichxxz607.47 kgImad Asaad Other [employer] Other 07-26-2023 14:00-0400Diastolic blood wfepyqgz57 mm[Hg] Imad Asaad Other [employer] Other 07-26-2023 14:00-0400Systolic blood tkaryrqa821 mm[Hg] Imad Asaad Other [employer] Other 05-31-2023 10:45-0400Body aywvnn431.23 cmImad Asaad Other [employer] Other 05-31-2023 10:45-0400Body mass index (BMI) [Ratio] 33.57 kg/m2Imad Asaad Other [employer] Other 05-31-2023 10:45-0400Body uxnhcv892.2 kgImad Asaad Other [employer] Other 05-31-2023 10:45-0400Diastolic blood qqzbgvog59 mm[Hg] Imad Asaad Other [employer] Other 05-31-2023 10:45-0400Systolic blood ibzxqipb905 mm[Hg] Imad Asaad Other [employer] Other 02-02-2023 12:30-0500Diastolic blood zeeolezo96 mm[Hg] Drew Gonsalves [facility]02-02-2023 12:30-0500Mean blood anyanplw59 mm[Hg]Drew Gonsalves [facility]02-02-2023 12:30-0500 Systolic blood zqpovnss316 mm[Hg]Drew Gonsalves [facility]02-02-2023 12:06-0500Blood Pressure LocationDaflakita Gonsalves [facility]02-02-2023 12:06-0500 Diastolic blood cvyccycd48 mm[Hg]Drew Gonsalves [facility]02-02-2023 12:06-0500Heart rate97 /minDanitj Gonsalves [facility]02-02-2023 12:06-6989XnZ9% (BldA) [Mass fraction]96 %Drew Gonsalves [facility]02-02-2023 12:06-0500 Systolic blood duqiurgz224 mm[Hg]Drew Gonsalves [facility]01-30-2023 10:11-0500Blood Pressure LocationPatricemmett ARIAS [facility]01-30-2023 10:11-0500Diastolic blood esttmcns82 mm[Hg]Teodora ARIAS [facility]01-30-2023 10:11-0500Heart rate74 /minPatrick ARIAS [facility]01-30-2023 10:11-0500Respiratory rate16 /minPatrick ARIAS [facility]01-30-2023 10:11-0500Systolic blood kywxqrjh630 mm[Hg]Teodora ARIAS [facility] Encounters Encounter DateEncounter TypeCare ProviderFacilityStart: 26-83-3726qcjgmjphkm Teodora ARIASFacility:[facility]vueStart: 05-02-2025 End: 87-82-5833Rqkodec encounter procedureMichael T Muse DO Work Phone: NO[facility] [place] OrthopaedicsComment on above:S/P reverse total shoulder arthroplasty, right (Primary Dx)Start: 05-02-2025 End: 23-31-8682swyrxfmbviTRXYNPA T POWERSNot AvailableStart: 05-02-2025 End: 69-25-4483hvexdcdntkOIJHXPJ T POWERSNot AvailableStart: 04-20-2025 End: 43-06-0632pmvvbztzucKwvnssr KellerFacility:[facility]art: 01-31-2025 End: 46-96-3888Plcpmog encounter procedureMichael T Muse DO Work Phone: noMS NB ORTHOComment on above:Status post reverse total arthroplasty of right shoulder (Primary Dx)Start: 01-31-2025 End: 44-66-0706azfodfijkiFAKSEGM T POWERSNot AvailableStart: 01-30-2025 End: 67-03-2322rivmqirvgoUsxfmqd R WATERSFacility:[facility]vueStart: 01-30-2025 End: 15-03-2037Xzhvdbz encounter procedureTeodora ARIAS [facility] start: 01-16-2025 End: 65-08-6519Wzo Drop offTeodora ARIAS [facility] Start: 01-16-2025 End: 09-78-8752qtwwttxiifBiaosmg R WATERSFacility:FTMCStart: 01-16-2025 End: 85-28-4866Thztsrj encounter procedurePatricemmett ARIAS [facility] Kevin start: 12-30-2024 End: 34-88-3835yrbsnidrnpSjhnnadff A Pleasnick PT Work Phone: noMS NM PTComment on above:Localized primary osteoarthritis of right shoulder region (Primary Dx); Chronic right shoulder pain; Status post reverse total arthroplasty of right shoulderStart: 12-30-2024 End: 85-38-2803Gkvmts flowsheetChristine A Pleasnick PT Work Phone: noMS NM PTStart: 12-30-2024 End: 42-67-4554Thxulc flowsheetChristine A Pleasnick PT Work Phone: noMS NM PTStart: 12-23-2024 End: 47-97-6363Wsnvxy flowsheetDanielle Perez PTANOMS NM PTStart: 12-23-2024 End: 69-53-1326Lmnbez flowsheetDanielle Perez PTANOMS NM PTStart: 12-23-2024 End: 62-86-9812ykaiqswwhbMbhbqjwp Perez PTANOMS NM PTComment on above:Localized primary osteoarthritis of right shoulder region (Primary Dx); Chronic right shoulder pain; Status post reverse total arthroplasty of right shoulderStart: 12-16-2024 End: 14-47-0160mfbuodzextEXCWAAZN SNYDERNot AvailableStart: 12-09-2024 End: 14-62-7205zgchwpnvhdVvmnohova A Pleasnick PT Work Phone: noMS NM PTComment on above:Localized primary osteoarthritis of right shoulder region (Primary Dx); Chronic right shoulder pain; Status post reverse total arthroplasty of right shoulderStart: 12-09-2024 End: 15-17-0944Whcvyk flowsheetChristine A Pleasnick PT Work Phone: noMS NM PTStart: 12-09-2024 End: 40-35-8029Frsqwy flowsheetChristine A Pleasnick PT Work Phone: noMS NM PTStart: 12-07-2024 End: 88-30-5586Snbvpj flowsheetDanielle Perez PTANOMS NM PTStart: 12-07-2024 End: 93-58-3172Jozohu flowsheetDanielle Perez PTANOMS NM PTStart: 12-07-2024 End: 40-16-9347djwimjhqaxImgdiieu Perez PTANOMS NM PTComment on above:Localized primary osteoarthritis of right shoulder region (Primary Dx); Chronic right shoulder pain; Status post reverse total arthroplasty of right shoulderStart: 12-02-2024 End: 41-09-4807zdiwvenxnzDwnhemse Perez PTANOMS NM PTComment on above:Localized primary osteoarthritis of right shoulder region (Primary Dx); Chronic right shoulder pain; Status post reverse total arthroplasty of right shoulderStart: 12-02-2024 End: 24-17-7531Qdsmiu flowsheetDanielle Perez PTANOMS NM PTStart: 12-02-2024 End: 74-03-0406Bdrjdi flowsheetDanielle Perez PTANOMS NM PTStart: 11-30-2024 End: 16-56-3092kxlqfitkovCwhgevrl Perez PTANOMS NM PTComment on above:Localized primary osteoarthritis of right shoulder region (Primary Dx); Chronic right shoulder pain; Status post reverse total arthroplasty of right shoulderStart: 11-30-2024 End: 45-84-2284Hlnqoc flowsheetDanielle Perez PTANOMS NM PTStart: 11-30-2024 End: 26-28-6568Cvoqkg flowsheetDanielle Perez PTANOMS NM PTStart: 11-24-2024 End: 08-12-0619rckrcfgyoyLsfztdsq Perez PTANOMS NM PTComment on above:Localized primary osteoarthritis of right shoulder region (Primary Dx); Chronic right shoulder pain; Status post reverse total arthroplasty of right shoulderStart: 11-22-2024 End: 32-45-2858emhvopgrjyWlqliquz Perez PTANOMS NM PTComment on above:Localized primary osteoarthritis of right shoulder region (Primary Dx); Chronic right shoulder pain; Status post reverse total arthroplasty of right shoulderStart: 11-22-2024 End: 71-98-3633Cxcqtnn encounter procedureMichael T Muse DO Work Phone: NOGV NB ORTHOComment on above:Status post reverse total arthroplasty of right shoulder (Primary Dx)Start: 11-22-2024 End: 25-34-4385ctocuqanagQGMUTBM T POWERSNot AvailableStart: 11-15-2024 End: 61-89-6493eigdqekkapMpdjcvina A Pleasnick PT Work Phone: NOMS NM PTComment on above:Localized primary osteoarthritis of right shoulder region (Primary Dx); Chronic right shoulder pain; Status post reverse total arthroplasty of right shoulderStart: 11-15-2024 End: 14-96-5813Plrmwm flowsheetChristine A Pleasnick PT Work Phone: NOMS NM PTStart: 11-15-2024 End: 84-08-9489Tsuvko flowsheetChristine A Pleasnick PT Work Phone: noMS NM PTStart: 11-11-2024 End: 12-92-7309dlphfqvrlgTULCRGZP SNYDERNot AvailableStart: 11-11-2024 End: 63-45-0838Ghxzdq flowsheetDanielle Perez PTANOMS NM PTStart: 11-11-2024 End: 63-20-6054Yfrchf flowsheetDanielle Perez PTANOMS NM PTStart: 11-08-2024 End: 93-27-5576cwsfzaeuxmTtpnxpzo Perez PTANOMS NM PTComment on above:Localized primary osteoarthritis of right shoulder region (Primary Dx); Chronic right shoulder pain; Status post reverse total arthroplasty of right shoulderStart: 11-04-2024 End: 36-33-8519miefqqsywyKokewhdje A Pleasnick PT Work Phone: NOMS NM PTComment on above:Localized primary osteoarthritis of right shoulder region (Primary Dx); Chronic right shoulder pain; Status post reverse total arthroplasty of right shoulderStart: 11-04-2024 End: 66-25-4091Dktjmz flowsheetChristine A Pleasnick PT Work Phone: NOMS NM PTStart: 11-04-2024 End: 98-69-6283Scuqot flowsheetChristine A Pleasnick PT Work Phone: NOMS NM PTStart: 11-01-2024 End: 20-16-6429mtyhyolppdMcnebcvx Perez PTANOMS NM PTComment on above:Localized primary osteoarthritis of right shoulder region (Primary Dx); Chronic right shoulder pain; Status post reverse total arthroplasty of right shoulderStart: 11-01-2024 End: 16-04-3455Gghgga flowsheetDanielle Perez PTANOMS NM PTStart: 11-01-2024 End: 77-64-0315Jhutkp flowsheetDanielle Perez PTANOMS NM PTStart: 10-27-2024 End: 07-45-5113gammqtfkmdPirykqeb Perez PTANOMS NM PTComment on above:Localized primary osteoarthritis of right shoulder region (Primary Dx); Chronic right shoulder pain; Status post reverse total arthroplasty of right shoulderStart: 10-24-2024 End: 75-54-9432Xtxzwe flowsheetChristine A Pleasnick PT Work Phone: NOMS NM PTStart: 10-24-2024 End: 22-53-7482Itfgzp flowsheetChristine A Pleasnick PT Work Phone: NOMS NM PTStart: 10-24-2024 End: 20-66-2155vznrthlsnwSyilvcdii A Pleasnick PT Work Phone: NOMS NM PTComment on above:Localized primary osteoarthritis of right shoulder region (Primary Dx); Chronic right shoulder pain; Status post reverse total arthroplasty of right shoulderStart: 10-21-2024 End: 89-76-9681ahgeqitetfBIDTTYMY SNYDERNot AvailableStart: 10-20-2024 End: 94-00-4844jdoeejjwgrGtktweev Perez PTANOMS NM PTComment on above:Localized primary osteoarthritis of right shoulder region (Primary Dx); Status post reverse total arthroplasty of right shoulder; Chronic right shoulder painStart: 10-18-2024 End: 75-98-7581wmqebvcjysYAGLLXPUK A PLEASNICKNot AvailableStart: 10-11-2024 End: 42-15-6276ojfgemhvlwBQSGMIN T POWERSNot AvailableStart: 10-11-2024 End: 50-79-2470scgcxsvhrtKAHKQNE T POWERSNot AvailableStart: 09-26-2024 End: 48-56-1471Fjjouhesb Result EncounterMichael T Muse DO Work Phone: [phone] External Department UnsolicitedStart: 09-26-2024 End: 22-52-1922Cjplxkfmu Result EncounterMichael T Muse DO Work Phone: [phone] External Department UnsolicitedStart: 09-26-2024 End: 95-89-2452Stxfpzfhk to same day surgery centerMichael T Muse [facility] Start: 09-26-2024 End: 88-47-5162qdkwutqrjrIrelfyb T PowersFacility:FTMCStart: 09-07-2024 End: 04-82-6843Ashtlu flowsheetMichael T Muse DO Work Phone: [phone] SWS ORTHOAOStart: 09-07-2024 End: 86-69-2231Oqasdh flowsheetMichael T Muse DO Work Phone: [phone] SWS ORTHOAOStart: 09-07-2024 End: 40-69-0772Bqmvytn encounter procedureMichael T Muse DO Work Phone: [phone] SWS ORTHOAOComment on above:Chronic elbow pain, right (Primary Dx)Start: 09-07-2024 End: 08-66-7440knflxbjawcNKVPPCN T POWERSNot AvailableStart: 08-29-2024 End: 19-09-3042Tdrrvozxv Result EncounterMichael T Muse DO Work Phone: [phone] External Department UnsolicitedStart: 08-29-2024 End: 21-82-2596Inzqgfshb Result EncounterMichael T Muse DO Work Phone: [phone] External Department UnsolicitedStart: 08-29-2024 End: 24-44-8068uibhocvcboYikkvvg T PowersFacility:FTMCStart: 08-29-2024 End: 32-49-4289Fpqhpjn encounter procedureMichael T Muse [facility] Start: 08-18-2024 End: 57-77-5554Svhmnd flowsheetMichael T Muse DO Work Phone: NOMS ORTHOStart: 08-18-2024 End: 55-89-7792Tjiscx flowsheetMichael T Muse DO Work Phone: [phone] ORTHOStart: 08-18-2024 End: 07-32-2488Tirkesl encounter procedureMichael T Muse DO Work Phone: NOMS NB ORTHOComment on above:Pre-op testing (Primary Dx); Right shoulder pain, unspecified chronicityStart: 08-18-2024 End: 80-50-1554Zqjsquu encounter statusMichael T Muse DO Work Phone: NOMS HealthcareStart: 08-18-2024 End: 37-39-0904fwenicbkyvXSMXGIM T POWERSNot AvailableStart: 08-08-2024 End: 89-44-5562yfqkwaohwyBDIVTMF T POWERSNot AvailableStart: 08-01-2024 End: 82-30-7565Nlpqcameq encounterMichael T Muse DO Work Phone: NOMS NB ORTHOStart: 08-01-2024 End: 90-76-8967shblupeplfLkuqieo R WATERSFacility:[facility] BellevueStart: 08-01-2024 End: 10-78-0761Diczucz encounter procedureTeodora ARIAS [facility] Kevin start: 07-28-2024 End: 25-80-9687Jkawvv flowsheetMichael T Muse DO Work Phone: NOMS ORTHOStart: 07-28-2024 End: 51-88-7214Pfkcak flowsheetMichael T Muse DO Work Phone: noms ORTHOStart: 07-28-2024 End: 78-44-1925Vrxrscf encounter procedureMichael T Muse DO Work Phone: noms NB ORTHOComment on above:Chronic left shoulder pain (Primary Dx); Right shoulder pain, unspecified chronicityStart: 07-28-2024 End: 15-21-1180ubwbzxnwbjFYTHBFC T POWERSNot AvailableStart: 07-26-2024 ambulatoryPatrick R WATERSFacility:CD:[id number]: 07-18-2024 End: 14-44-4960gthdbwqagpWrmyeie WatersFacility:[facility]tart: 07-18-2024 End: 98-19-5810zjkzyjudcdLdwfldv R WATERSFacility:CD:[id number]: 06-14-2024 End: 60-58-7615turxzgfyusBetqncv WatersFacility:[facility]tart: 04-18-2024 End: 79-93-7421amptpximxdErazbky R WATERSFacility:[facility] BellevueStart: 04-18-2024 End: 23-86-9173Hmdehnq encounter procedurePatrick R ARIAS [facility] start: 03-23-2023 End: 06-24-4103Wpmdpqt encounter procedurePatrick R ARIAS [facility] start: 02-18-2023 End: 58-37-7129jrtgvrytccPiyo Asaad Other [employer] Other Start: 66-14-0457Yagfgi outpatient new 45 minutesImad AsaadFPG GastroenterologyStart: 02-13-2023 End: 60-61-2135jzuepebldzIwdw Asaad Other [employer] Other Start: 78-33-8257Knejdrtqp encounterImad AsaadFPG GastroenterologyStart: 12-24-2022 End: 21-68-4111vzrqjuhjtaMqvs Asaad Other [employer] Other Start: 08-07-2612Jngcll outpatient new 45 minutesImad AsaadFPG GastroenterologyStart: 04-18-3244Mriapjoll encounterImad AsaadFPG GastroenterologyStart: 09-23-2022 End: 44-39-6745Awuakcy encounter procedureTeodora ARIAS [facility] Start: 09-11-2022 End: 39-56-9817jsawenekmoFA TEODORA ARIAS .Facility:B9Rkhqx: 09-03-2022 Encounter for preprocedural cardiovascular examinationDR TEODORA ARIAS .[facility] 09-02[facility]2022 End: 27-22-5474cegbqsioprIC TEODORA ARIAS .Facility:W2Hafjc: 09-02-2022 End: 50-70-2906Bemmxuzye for preprocedural cardiovascular examinationDR TEODORA ARIAS .Facility:A1Rbhsg: 08-29-2022 End: 49-03-2816Oql-admission assessmentDaflakita Gonsalves [facility] Start: 08-28-2022 End: 66-04-0921Eywpyok encounter procedureDrew Gonsalves [facility] Start: 08-26-2022 End: 83-17-4076ldokquqjjfJA TEODORA ARIAS .Facility:D7Fdwmg: 08-25-2022 End: 13-82-6015idxlubatvsVH TEODORA ARIAS .Facility:T3Dfmdz: 08-25-2022 End: 60-10-2644Ocgajsq encounter procedureTeodora ARIAS [facility] Kevin Procedures DateProcedureProcedure DetailPerforming ClinicianStart: 37-81-3098Quoal shoulder complete minimum 2 viewsMichael T Muse DO Work Phone: Start: 11-70-3739Eitor shoulder complete minimum 2 viewsMichael T Muse DO Work Phone: [phone]: 71-90-4546Exgpq shoulder complete minimum 2 viewsMichael T Muse DO Work Phone: Start: 84-02-9796TB SHOULDER COMPLETE RIGHTMichael T Muse DO Work Phone: Start: 82-49-2956Mjupy shoulder replacementMichael Muse Start: 14-85-3244Xlzbhfupgremcx aspir&/inj interm jt/burs w/usMichael T Muse DO Work Phone: Start: 92-77-8438Fikny elbow 2 viewsMichael T Muse DO Work Phone: Start: 24-54-4471RQ WITH CULT RFLXMichael T Muse DO Work Phone: Start: 68-67-8049Jgyrb shoulder complete minimum 2 viewsMichael T Muse DO Work Phone: Start: 20-61-7645Wbpdwkvrjuc needle biopsy of prostate Teodora ARIAS Start: 92-15-3814Tnzvz knee replacementPatrick ARIAS arthroscopy of kneePatrick ARIAS Bone spur of left footPatrick ARIAS Excision of ganglion of wrist, recurrentPatrick ARIAS Excision of peripheral neuromaPatrick ARIAS History of operative procedure on kneeImad Asaad Other History of spinal fusionPatrick ARIAS History of spinal fusionMichael Muse History of tonsillectomyPatrick ARIAS History of total knee arthroplastyPatrick ARIAS Repair of left direct inguinal herniaPatrick ARIAS Repair of right direct inguinal herniaPatrick ARIAS Varicose vein strippingPatrick ARIAS Plan of Treatment DateCare ActivityDetailAuthorStart: 09-26-2025 End: 42-24-3657Ttzruni encounter hybgxinhb61/03/2026 11:00 AM EST [facility] [address] [place] [id number] Leyda Muse, DO [address] [place] [address] [facility]Start: 05-02-2025 End: 58-36-6999Ryvsdby encounter ausemrnly84/07/2025 11:00 AM EDT Office Visit [facility] [address] YOVANI Damián [facility] [place] [phone] Leyda Muse, DO [address] [place]ovani Damián [place] [address] [facility] ORTHOStart: [id number] vaccinationInfluenza Vaccine (#1)[facility] HealthcareStart: 01-31-2025 End: 73-48-2589Jhcbjxp encounter fgescdpmo56/08/2025 8:30 AM EDT Office Visit [facility] [address] [place] [id number] Leyda Muse, DO [address] [place] [address] [facility] ORTHOStart: 12-30-2024 End: 35-01-0126hstxcrmoxcTUZR NM PTComment on above:Localized primary osteoarthritis of right shoulder region (Primary Dx); Chronic right shoulder pain; Status post reverse total arthroplasty of right shoulderStart: 12-23-2024 End: 30-50-3439gergxrdlywXUUE NM PTComment on above:Localized primary osteoarthritis of right shoulder region (Primary Dx); Chronic right shoulder pain; Status post reverse total arthroplasty of right shoulderStart: 12-16-2024 End: 73-43-9666sfqczqupxc65/23/2025 2:00 PM EDT Treatment [facility] [address] [place] [address] Kavita Perez PTANOMS NM PTStart: 12-09-2024 End: 11-86-4755azmbqlentxFZDG NM PTComment on above:Localized primary osteoarthritis of right shoulder region (Primary Dx); Chronic right shoulder pain; Status post reverse total arthroplasty of right shoulderStart: 12-07-2024 End: 32-52-4459fcyprylbzaGQGX NM PTComment on above:Localized primary osteoarthritis of right shoulder region (Primary Dx); Chronic right shoulder pain; Status post reverse total arthroplasty of right shoulderStart: 12-06-2024 End: 99-71-1406ojbbbopmzf02/13/2025 3:00 PM EDT Treatment [facility] [address] [place] [address] Kavita Perez PTANOMS NM PTStart: 12-02-2024 End: 43-88-9824hfuhmqikyb76/09/2025 2:30 PM EDT Treatment [facility] [address] [place] [address] Kavita Perez PTANOMS NM PTStart: 11-30-2024 End: 65-64-2159mzipdrnahnHJYE NM PTComment on above:Localized primary osteoarthritis of right shoulder region (Primary Dx); Chronic right shoulder pain; Status post reverse total arthroplasty of right shoulderStart: 11-24-2024 End: 28-26-8815jgxsiuitdz56/01/2025 2:30 PM EDT Treatment [facility] [address] [place] [address] Kavita Perez PTANOMS NM PTStart: 11-22-2024 End: 74-52-3041atcwlhestb31/29/2025 11:30 AM EDT Treatment [facility] [address] [place] [address] Kavita Perez PTANOMS NM PTStart: 11-22-2024 End: 53-85-9694Iurrauc encounter kgjvnoulg06/29/2025 8:30 AM EDT Office Visit [facility] [address] [facility] [place] [phone] Leyda Muse DO [address] [facility] [place] [address] [facility] NB ORTHOStart: 11-15-2024 End: 30-36-1017ccityprejaNBIZ NM PTComment on above:ArrivedStart: 11-11-2024 End: 25-00-4466hmstbnrmjoOJXS NM PTComment on above:ArrivedStart: 11-08-2024 End: 06-83-8113tzmyqnndry54/15/2025 3:30 PM EDT Treatment [facility] [address] [place] [address] Kavita Perez PTANOMS NM PTStart: 11-04-2024 End: 97-01-8926helcervtisHOOO NM PTComment on above:ArrivedStart: 11-01-2024 End: 01-89-9839wtfrgtokwjATCF NM PTComment on above:Localized primary osteoarthritis of right shoulder region (Primary Dx); Chronic right shoulder pain; Status post reverse total arthroplasty of right shoulderStart: 10-27-2024 End: 70-41-4904coqekrjuvu01/03/2025 2:30 PM EDT Treatment [facility] [address] [place] [address] Kavita Perez PTANOMS NM PTStart: 10-24-2024 End: 26-05-2039yvrysbsfjwPMWE NM PTComment on above:ArrivedStart: 10-11-2024 End: 12-90-6633Neyylsw encounter qpjypezsi54/18/2025 2:00 PM EDT Office Visit [facility] [address] [place] [phone] Leyda Muse, DO [address] [place] [address] N[facility] NB ORTHOStart: 09-07-2024 End: 91-79-8582Towxhas encounter vfscttlhe64/12/2025 8:45 AM EST Office Visit [facility] [address] [place] [address] Leyda Muse, DO [address] [place] [place] [address] Chronic elbow pain, right (Primary Dx)[facility] Comment on above:Chronic elbow pain, right (Primary Dx)Start: 08-18-2024 End: 04-54-7951Rsjbhyoxek complete panel - UrineUrinalysis with reflex microscopic Lab Routine Right shoulder pain, unspecified chronicity Pre-op te sting Expected: 08/18/2024, Expires: 08/18/2025[facility] Work Phone: Comment on above:Expected: 08/18/2024, Expires: 08/18/2025Start: 07-28-2024 End: 79-30-0904Bkxlxij encounter vozgjetjn57/02/2025 10:15 AM EST Office Visit [facility] [address] [place] [address] Leyda Muse, DO [address] [place] [place] [address] Chronic left shoulder pain (Primary Dx)[facility] PRANEETH ORTHOComment on above:Chronic left shoulder pain (Primary Dx)Start: 51-13-1685Popldwfrx vaccinationInfluenza Vaccine (#1)[facility] HealthcareStart: 41-17-8234Hbczenkqhben Vaccine: 65+ Years (2 of 2 - PCV)Pneumococcal Vaccine: 65+ Years (2 of 2 - PCV) [facility] HealthcareStart: 86-14-6802Iyvwpbtqc for malignant neoplasm of colonJORDAN VALLEY [facility] HealthcareXR Elbow - right 2 ViewsXR elbow 1 or 2 views right Imaging Routine Chronic elbow pain, right 09/07/2024 8:27 AM [facility] Work Phone: XR Shoulder - right 2 ViewsXR shoulder 2+ views right Imaging Routine Right shoulder pain, unspecified chronicity 07/28/2024 10:03 AM [facility] [employer] Work Phone: XR Shoulder - right 2 ViewsXR shoulder 2+ views right Imaging Routine Status post reverse total arthroplasty of right shoulder [facility]/31[facility]25 7[facility] [employer] Work Phone: Immunizations Immunization DateImmunizationNotesCare OdshdmfoGrpvwjtd50-83-3553idsccloxz virus vaccine, unspecified formulationMichael Muse DO Work Phone: [facility] HospitalDkryrpbkyh84-53-8801tuzefwxux virus vaccine, unspecified formulationMichael Muse DO Work Phone: [facility] Payers DatePayer CategoryPayerPolicy [id number] Health [id number] [id number] [id number] 2019Medicare [id number] [id number] 2.16.840.1.693693.3.57[id number] 2.16.840.1.586565.3.57[id number] 2.16.840.1.882327.3.579.[id number] 2.16.840.1.946854.3.57[id number] 2.16.840.1.065863.3.57[id number] 2.16.840.1.576586.3.579.2.[id number] 2.16840.1.576992.3.579.[id number] 2.840.1.892291.3.57[id number] 2.16840.1.760474.3.579.2.11486-82-4482Fjcdjuz80576784 2..840.1.991706.3.579.2.67576-62-3796Rmpavvn39589520 2.840.1.081239.3.579.2.63543-15-1387Ucinaqu44825759 2.16.840.1.743356.3.579.2.43101-17-8686Vsnxfrm51784900 2.16.840.1.329099.3.579.2.46933-67-4820Ffxpvga24009864 2.16.840.1.308986.3.579.[id number] 2.16.840.1.366044.3.579.2.938855-71-1442Gvecesl38626585 2.16.840.1.995193.3.579.2.918520-70-0699Edkwgqe56689420 2.16.840.1.217682.3.579.2.053983-09-8025Vvchzae23709763 2.16.840.1.305950.3.579.2.018358-05-6923Qkfxugj05617250 2.16.840.1.445782.3.579.2.447297-58-4746Uyypgqy8200855 2.16.840.1.367104.3.579.2.596617-39-4995Jcjflrw7547581 2.16.840.1.688946.3.579.2.516237-32-0709Pfqmmbl1753588 2.16.840.1.186211.3.579.2.328821-49-8601Mrqafjc9944574 2.16.840.1.018563.3.579.2.389806-68-1944Bylcndr0789844 2.16.840.1.466917.3.579.2.975228-40-6782Cnbocbl4902294 2.16.840.1.046375.3.579.2.890220-59-1168Ctbicrk8121241 2.16.840.1.280016.3.579.2.948774-31-4175Veiczcs3024529 2.16.840.1.062926.3.579.2.458274-88-5017Oloumix8536756 2.16.840.1.963856.3.579.2.331679-22-5191Kapdubd0332089 2.16.840.1.992118.3.579.2.925007-51-4185Mhgkwru0984906 2.16.840.1.682511.3.579.2.736381-03-5256Dbfijnw3139080 2.16.840.1.843868.3.579.2.246612-30-8360Kcgxptv5317637 2.16.840.1.650233.3.579.2.489201-42-8488Whwnave9751627 2.16.840.1.941621.3.579.2.823900-98-3259Auhjzoj9223977 2.16.840.1.683358.3.579.2.547088-65-7363Yioctjq4618614 2.16.840.1.003200.3.579.2.482324-13-4066Uubshag0871625 2.16840.1.125409.3.579.2.433967-40-9970Clrhtkk7593676 2.16840.1.942960.3.579.2.448890-05-3179Nanwceo9900276 2.16.840.1.567525.3.579.2.872177-52-4811Jezrkul8826742 2.16840.1.319335.3.579.2.060518-96-9911Ywbxzuk8819425 2.16840.1.137259.3.579.2.524320-91-4675Dcczhir0881732 2.16.840.1.714279.3.579.2.205236-83-5228Dizolwk4577827 2.16.840.1.582273.3.579.2.803332-33-5977Ksribuw4797919 2.16.840.1.031727.3.579.2.277085-61-7525Hhrszfw8132429 2.16840.1.452999.3.579.2.597682-97-4246Ursvota3539901 2.16.840.1.056411.3.579.2.618723-01-8644Vaolvlf8362614 2.16.840.1.908007.3.579.2.589301-34-2302Ekgaxwm2241214 2.16.840.1.642344.3.579.2.0241Xiofriv47361515 2.16.840.1.276799.3.579.2.531 Kkwxcop43862652 2.16.840.1.390666.3.579.2.394Egygeni38711611 2.16.840.1.670314.3.579.2.531 Social History DateTypeDetailFacilityTobacco smoking statusExecutive [facility] of [facility] start: 02-03-2024 End: 24-34-2995Hml Assigned At BirthMalWayne Hospitaltart: 02-03-2024 End: 62-66-4376Abngaxm smoking statusNever smoked tobacco (finding)[facility] smoking statusNever [facility]: 02-03-2024 Tobacco use and exposureSmokeless tobacco non-userNOMS HealthcareStart: 02-03-2024 End: 78-39-3859Xpqyuda of Social functionNOMS HealthcareStart: 48-54-1620Voy assigned at birthNot on fileNOOK HealthcareStart: 28-17-1313WpnLhvh (finding) [facility] Medical Equipment Procedure CodeEquipment CodeEquipment Original TextEquipment IdentifierDatesKNEE TOTAL ARTHROPLASTY Unknown 01/23/20 Non Biological Knee LFDAStart: 01-23-2020 KNEE TOTAL ARTHROPLASTY Unknown 01/23/20 Non Biological Knee LFDAStart: 95-71-7930ORMM TOTAL ARTHROPLASTY Unknown 01/23/20 Non Biological Knee LFDAStart: 40-79-1859IAUL TOTAL ARTHROPLASTY Unknown 01/23/20 Non Biological Knee LFDA Start: 67-04-8302DADV TOTAL ARTHROPLASTY Unknown 01/23/20 Non Biological Knee L FDAStart: 47-02-8272OPSJ TOTAL ARTHROPLASTY Unknown 01/23/20 Non Biological Knee LFDAStart: 25-27-4790REBB TOTAL ARTHROPLASTY Unknown 01/23/20 Non Biological Knee LFDAStart: 87-65-5632WPCS TOTAL ARTHROPLASTY Unknown 01/23/20 Non Biological Knee LFDAStart: 24-09-5941JFGO TOTAL ARTHROPLASTY Unknown 01/23/20 Non Biological Knee LFDAStart: 49-71-2631IEAP TOTAL ARTHROPLASTY Unknown 01/23/20 Non Biological Knee LFDAStart: 78-15-5871UBSE TOTAL ARTHROPLASTY Unknown 01/23/20 Non Biological Knee LFDAStart: 41-81-6591LUBC TOTAL ARTHROPLASTY Unknown 01/23/20 Non Biological Knee LFDAStart: 51-37-3793XNCQ TOTAL ARTHROPLASTY Unknown 01/23/20 Non Biological Knee LFDAStart: 27-40-1250LSFJ TOTAL ARTHROPLASTY Unknown 01/23/20 Non Biological Knee LFDAStart: 05-76-0066EESH TOTAL ARTHROPLASTY Unknown 01/23/20 Non Biological Knee LFDAStart: 70-60-4047XUOM TOTAL ARTHROPLASTY Unknown 01/23/20 Non Biological Knee LFDAStart: 87-56-3933LQGQ TOTAL ARTHROPLASTY Unknown 01/23/20 Non Biological Knee LFDAStart: 95-33-5359ZVKA TOTAL ARTHROPLASTY Unknown 01/23/20 Non Biological Knee LFDAStart: 95-47-8807WORK TOTAL ARTHROPLASTY Unknown 01/23/20 Non Biological Knee LFDAStart: 93-75-8244BUBA TOTAL ARTHROPLASTY Unknown 01/23/20 Non Biological Knee LFDAStart: 41-41-1406QCIP TOTAL ARTHROPLASTY Unknown 01/23/20 Non Biological Knee LFDAStart: 01-23-2020 KNEE TOTAL ARTHROPLASTY Unknown 01/23/20 Non Biological Knee LFDAStart: 38-65-9656WSOO TOTAL ARTHROPLASTY Unknown 01/23/20 Non Biological Knee LFDAStart: 31-17-1537MZQF TOTAL ARTHROPLASTY Unknown 01/23/20 Non Biological Knee LFDA Start: 80-54-0658QKZQ TOTAL ARTHROPLASTY Unknown 01/23/20 Non Biological Knee L FDAStart: 21-40-0895FPNT TOTAL ARTHROPLASTY Unknown 01/23/20 Non Biological Knee LFDAStart: 65-08-9278PEXJ TOTAL ARTHROPLASTY Unknown 01/23/20 Non Biological Knee LFDAStart: 26-89-5482KDTZ TOTAL ARTHROPLASTY Unknown 01/23/20 Non Biological Knee LFDAStart: 21-05-2189YFTV TOTAL ARTHROPLASTY Unknown 01/23/20 Non Biological Knee LFDAStart: 68-96-8893ZPAE TOTAL ARTHROPLASTY Unknown 01/23/20 Non Biological Knee LFDAStart: 35-78-9664MADC TOTAL ARTHROPLASTY Unknown 01/23/20 Non Biological Knee LFDAStart: 38-56-6238OXXA TOTAL ARTHROPLASTY Unknown 01/23/20 Non Biological Knee LFDAStart: 85-13-7194XJYZ TOTAL ARTHROPLASTY Unknown 01/23/20 Non Biological Knee LFDAStart: 20-35-5720DODO TOTAL ARTHROPLASTY Unknown 01/23/20 Non Biological Knee LFDAStart: 52-44-6514KBKE TOTAL ARTHROPLASTY Unknown 01/23/20 Non Biological Knee LFDAStart: 22-30-4393FNFN TOTAL ARTHROPLASTY Unknown 01/23/20 Non Biological Knee LFDAStart: 76-07-1935JOQU TOTAL ARTHROPLASTY Unknown 01/23/20 Non Biological Knee LFDAStart: 44-53-0181JHCF TOTAL ARTHROPLASTY Unknown 01/23/20 Non Biological Knee LFDAStart: 45-08-9193QKES TOTAL ARTHROPLASTY Unknown 01/23/20 Non Biological Knee LFDAStart: 61-01-1788QLZO TOTAL ARTHROPLASTY Unknown 01/23/20 Non Biological Knee LFDAStart: 30-28-5947SXFC TOTAL ARTHROPLASTY Unknown 01/23/20 Non Biological Knee LFDAStart: 01-23-2020 KNEE TOTAL ARTHROPLASTY Unknown 01/23/20 Non Biological Knee LFDAStart: 70-26-1675INXB TOTAL ARTHROPLASTY Unknown 01/23/20 Non Biological Knee LFDAStart: 47-68-7099DZIO TOTAL ARTHROPLASTY Unknown 01/23/20 Non Biological Knee LFDA Start: 68-87-8008LSUT TOTAL ARTHROPLASTY Unknown 01/23/20 Non Biological Knee L FDAStart: 04-88-0108TNQY TOTAL ARTHROPLASTY Unknown 01/23/20 Non Biological Knee LFDAStart: 18-38-5049GMBR TOTAL ARTHROPLASTY Unknown 01/23/20 Non Biological Knee LFDAStart: 89-73-5325MVPC TOTAL ARTHROPLASTY Unknown 01/23/20 Non Biological Knee LFDAStart: 45-58-5099BHCN TOTAL ARTHROPLASTY Unknown 01/23/20 Non Biological Knee LFDAStart: 83-99-7680TASH TOTAL ARTHROPLASTY Unknown 01/23/20 Non Biological Knee LFDAStart: 53-85-7306XKHX TOTAL ARTHROPLASTY Unknown 01/23/20 Non Biological Knee LFDAStart: 56-66-9708OKSI TOTAL ARTHROPLASTY Unknown 01/23/20 Non Biological Knee LFDAStart: 68-23-8755HZMZ TOTAL ARTHROPLASTY Unknown 01/23/20 Non Biological Knee LFDAStart: 50-98-8385ABKU TOTAL ARTHROPLASTY Unknown 01/23/20 Non Biological Knee LFDAStart: 98-37-3739BLAGVCNN TOTAL ARTHROPLASTY Muse DO, Leyda Aguiar 09/26/24 Unknown Shoulder RFDAStart: 78-90-5191CPTUVLME TOTAL ARTHROPLASTY Muse DO, Leyda Aguiar 09/26/24 Unknown Shoulder RFDAStart: 09-26-2024 SHOULDER TOTAL ARTHROPLASTY Muse DO, Leyda Aguiar 09/26/24 Unknown Shoulder RFDA Start: 43-11-1442NRSVOOUR TOTAL ARTHROPLASTY Muse DO, Leyda Aguiar 09/26/24 Unknown Shoulder RFDAStart: 38-87-2173UVLBQSDT TOTAL ARTHROPLASTY Muse DO, Leyda Aguiar 09/26/24 Unknown Shoulder RFDAStart: 16-17-3390FMTZZLXE TOTAL ARTHROPLASTY Muse DO, Leyda Aguiar 09/26/24 Unknown Shoulder RFDAStart: 84-37-4349GSWWFHYZ TOTAL ARTHROPLASTY Muse DO, Leyda Aguiar 09/26/24 Unknown Shoulder RFDAStart: 09-26-2024 SHOULDER TOTAL ARTHROPLASTY Muse DO, Leyda Aguiar 09/26/24 Unknown Shoulder RFDA Start: 87-97-2174ERWN TOTAL ARTHROPLASTY Unknown 01/23/20 Non Biological Knee L FDAStart: 52-48-3773EPFL TOTAL ARTHROPLASTY Unknown 01/23/20 Non Biological Knee LFDAStart: 38-87-5911AZVG TOTAL ARTHROPLASTY Unknown 01/23/20 Non Biological Knee LFDAStart: 83-26-9312XDDL TOTAL ARTHROPLASTY Unknown 01/23/20 Non Biological Knee LFDAStart: 88-14-2694ZHBU TOTAL ARTHROPLASTY Unknown 01/23/20 Non Biological Knee LFDAStart: 53-08-2016XCOR TOTAL ARTHROPLASTY Unknown 01/23/20 Non Biological Knee LFDAStart: 76-20-3425LMXFFTWN TOTAL ARTHROPLASTY Muse DO, Leyda Aguiar 09/26/24 Unknown Shoulder RFDAStart: 98-94-0668PMVJXFNY TOTAL ARTHROPLASTY Muse DO, Leyda Aguiar 09/26/24 Unknown Shoulder RFDAStart: 09-26-2024 SHOULDER TOTAL ARTHROPLASTY Muse DO, Leyda Aguiar 09/26/24 Unknown Shoulder RFDA Start: 00-04-1768ZKIPNOEX TOTAL ARTHROPLASTY Muse DO, Leyda Aguiar 09/26/24 Unknown Shoulder RFDAStart: 16-06-1693LPFHFHWC TOTAL ARTHROPLASTY Muse DO, Leyda Aguiar 09/26/24 Unknown Shoulder RFDAStart: 85-39-3776KTNHARMH TOTAL ARTHROPLASTY Muse DO, Leyda Aguiar 09/26/24 Unknown Shoulder RFDAStart: 62-19-3955MQXGMNYG TOTAL ARTHROPLASTY Muse DO, Leyda Aguiar 09/26/24 Unknown Shoulder RFDAStart: 09-26-2024 SHOULDER TOTAL ARTHROPLASTY Muse DO, Leyda Aguiar 09/26/24 Unknown Shoulder RFDA Start: 75-53-7267ZDST TOTAL ARTHROPLASTY Unknown 01/23/20 Non Biological Knee L FDAStart: 69-85-9857HLFZ TOTAL ARTHROPLASTY Unknown 01/23/20 Non Biological Knee LFDAStart: 64-49-7248RTBE TOTAL ARTHROPLASTY Unknown 01/23/20 Non Biological Knee LFDAStart: 05-03-8551ISOM TOTAL ARTHROPLASTY Unknown 01/23/20 Non Biological Knee LFDAStart: 55-26-8547NZHD TOTAL ARTHROPLASTY Unknown 01/23/20 Non Biological Knee LFDAStart: 34-90-2319AKOW TOTAL ARTHROPLASTY Unknown 01/23/20 Non Biological Knee LFDAStart: 84-34-0386IWWVQXLD TOTAL ARTHROPLASTY Muse DO, Leyda Aguiar 09/26/24 Unknown Shoulder RFDAStart: 64-98-9767UYHSHORY TOTAL ARTHROPLASTY Muse DO, Leyda Aguiar 09/26/24 Unknown Shoulder RFDAStart: 09-26-2024 SHOULDER TOTAL ARTHROPLASTY Muse DO, Leyda Aguiar 09/26/24 Unknown Shoulder RFDA Start: 15-20-8083CVBTVKUE TOTAL ARTHROPLASTY Muse DO, Leyda Aguiar 09/26/24 Unknown Shoulder RFDAStart: 26-39-5039TWTHSZTI TOTAL ARTHROPLASTY Muse DO, Leyda Aguiar 09/26/24 Unknown Shoulder RFDAStart: 25-37-3686FGOTJDSU TOTAL ARTHROPLASTY Muse DO, Leyda Aguiar 09/26/24 Unknown Shoulder RFDAStart: 92-17-3697YOGCJPXT TOTAL ARTHROPLASTY Muse DO, Leyda Aguiar 09/26/24 Unknown Shoulder RFDAStart: 09-26-2024 SHOULDER TOTAL ARTHROPLASTY Muse DO, Leyda Aguiar 09/26/24 Unknown Shoulder RFDA Start: 20-05-0773TLVC TOTAL ARTHROPLASTY Unknown 01/23/20 Non Biological Knee L FDAStart: 28-88-9861WRRK TOTAL ARTHROPLASTY Unknown 01/23/20 Non Biological Knee LFDAStart: 37-84-7689CDQE TOTAL ARTHROPLASTY Unknown 01/23/20 Non Biological Knee LFDAStart: 24-54-2788VQNG TOTAL ARTHROPLASTY Unknown 01/23/20 Non Biological Knee LFDAStart: 60-87-7591OMQF TOTAL ARTHROPLASTY Unknown 01/23/20 Non Biological Knee LFDAStart: 22-05-5278ENWV TOTAL ARTHROPLASTY Unknown 01/23/20 Non Biological Knee LFDAStart: 34-03-1815OTFBTSOM TOTAL ARTHROPLASTY Muse DO, Leyda Aguiar 09/26/24 Unknown Shoulder RFDAStart: 85-24-0462UZYUJGZS TOTAL ARTHROPLASTY Muse DO, Leyda Aguiar 09/26/24 Unknown Shoulder RFDAStart: 09-26-2024 SHOULDER TOTAL ARTHROPLASTY Muse DO, Leyda Aguiar 09/26/24 Unknown Shoulder RFDA Start: 06-94-7760ZASMVATV TOTAL ARTHROPLASTY Umse DO, Leyda Aguiar 09/26/24 Unknown Shoulder RFDAStart: 65-63-9392RIPGLHLL TOTAL ARTHROPLASTY Muse DO, Leyda Aguiar 09/26/24 Unknown Shoulder RFDAStart: 59-59-6633ZEJOGZSV TOTAL ARTHROPLASTY Muse DO, Leyda Aguiar 09/26/24 Unknown Shoulder RFDAStart: 15-52-2477HAZIARPY TOTAL ARTHROPLASTY Muse DO, Leyda Aguiar 09/26/24 Unknown Shoulder RFDAStart: 09-26-2024 SHOULDER TOTAL ARTHROPLASTY Muse DO, Leyda Aguiar 09/26/24 Unknown Shoulder RFDA Start: 09-26-2024 Functional Status TimeHsqcvjitunCjgrxzEoqnftnn59-68-4413Nilnemlujr StatusC[facility] Foundation01-06-2025Functional StatusN/AExec[facility]09-23-2024Functional StatusN/A[facility]08-28-2023Functional StatusN/A[facility]02-02-2023Functional StatusNo[facility]01-30-2023Functional StatusN/A[facility] Clinical Notes 08-25-2022 to 05-02-2025 Note Date & JwncJrzvEthzjbol75-41-9308 History of Present illness Narrative* Caty Cervantes - 05/02/2025 11:00 AM EDT Images from the original note were not included. Matty Liang is a 69 y.o. male presents with chief complaint of follow up right reverse total shoulder arthroplasty. HPI: Matty is here for his follow up on his visit. He is approximately seven months postoperative from his right reverse total shoulder replacement. He has no pain or complaints. He does admit that he hasbacked off his exercise and really has not been doing anything significant with this. He denies anynumbness or tingling. He has no fever, chills or constitutional symptoms. SUBJECTIVE: MEDICATIONS: Current Outpatient Medications Medication Instructions amitriptyline (Elavil) 25 MG tablet TAKE 2 TABLETS BY MOUTH EVERY DAY AT BEDTIME atorvastatin (LIPITOR) 40 mg, Daily ciprofloxacin (Cipro) 500 MG tablet diclofenac (VOLTAREN) 75 mg, Daily sildenafil (Viagra) 50 MG tablet TAKE 1 TABLET BY MOUTH ONCE DAILY NEEDED temazepam (Restoril) 30 MG capsule TAKE 1 CAPSULE BY MOUTH EVERYDAY AT BEDTIME ALLERGIES: Allergies Allergen Reactions Neosporin [Bacitracin-Polymyxin B] SURGICAL HISTORY: Past Surgical History: Procedure Laterality Date TOTAL KNEE ARTHROPLASTY Left 2019 LTKA_ MTP TOTAL SHOULDER ARTHROPLASTY Right 09/26/2024 R REV TSA MTP FAMILY HISTORY: No family history on file. SOCIAL HISTORY: Social History Tobacco Use Smoking status: Never Smokeless tobacco: Never Vaping Use Vaping status: Never Used Depression: Not on file REVIEW OF SYMPTOMS: The review of systems, history and current medications list are all reviewed today. OBJECTIVE: Visit Vitals Ht 6' Wt 286 lb BMI 38.79 kg/m Smoking Status Never BSA 2.57 m Physical Exam On physical exam, he is alert and oriented. Vital signs are stable. There is no obvious sign of rash or infection. There is no warmth or erythema. He has had some regression in his active range of motion with mild to moderate stiffness from disuse and lack of regular exercise. He has no pain. Strength testing is improving. There is no click, clunk or instability. He is neurovascularly intact distally. Two view x-rays taken in the [place] office saved to the permanent record shows stable position andalignment of the reverse arthroplasty. There is no sign of loosening or infection. ASSESSMENT AND PLAN: Assessment/Plan Follow up right reverse total shoulder arthroplasty. The nature of the findings were discussed at length. We discussed more regular exercise with wall, pendulum and hansel exercises. The recommendation is doing the hansel four or five times a week on aregular basis was reviewed. I instructed him that he can improve his flexibility and mobility up toa year out from the surgery and this is moldable. Follow up will be in September at his anniversary, sooner if worse. He voices verbal understanding. He is discharged in stable condition. Numerous questions were answered. The patient was seen and examined. From the time of check in, nurse triage, vital signs, x-ray, x-ray interpretation, review of systems, comprehensive history and physical exam as well as setting up treatment plan and further management took 35 minutes. Cosigned by Leyda Muse DO at 05/04/2025 1:59 PM EDT documented in this encounterSaint [facility]'s [facility] [id number] History of Present illness Narrative* Caty Cervantes - 01/31/2025 8:30 AM EDT Images from the original note were not included. Matty Liang is a 69 y.o. male presents with chief complaint of four months status post right reverse total shoulder arthroplasty. HPI: Matty is here doing well with his shoulder, occasionally has some achiness and endurance issues butin general very happy with the progress made. He denies any numbness or tingling, no fever, chills or constitutional symptoms. SUBJECTIVE: MEDICATIONS: Current Outpatient Medications Medication Instructions amitriptyline (Elavil) 25 MG tablet TAKE 2 TABLETS BY MOUTH EVERY DAY AT BEDTIME atorvastatin (LIPITOR) 40 mg, Daily ciprofloxacin (Cipro) 500 MG tablet diclofenac (VOLTAREN) 75 mg, Daily sildenafil (Viagra) 50 MG tablet TAKE 1 TABLET BY MOUTH ONCE DAILY NEEDED temazepam (Restoril) 30 MG capsule TAKE 1 CAPSULE BY MOUTH EVERYDAY AT BEDTIME ALLERGIES: Allergies Allergen Reactions Neosporin [Bacitracin-Polymyxin B] SURGICAL HISTORY: Past Surgical History: Procedure Laterality Date TOTAL KNEE ARTHROPLASTY Left 2019 [facility]_ [facility] TOTAL SHOULDER ARTHROPLASTY Right 09/26/2024 R RE[facility]TP FAMILY HISTORY: No family history on file. SOCIAL HISTORY: Social History Tobacco Use Smoking status: Never Smokeless tobacco: Never Vaping Use Vaping status: Never Used Depression: Not on file REVIEW OF SYMPTOMS: The review of systems, history and current medications list are all reviewed today. OBJECTIVE: Visit Vitals Ht 6' Wt 286 lb BMI 38.79 kg/m Smoking Status Never BSA 2.57 m Physical Exam On physical exam, the incision is clean, dry and intact. Range of motion is stable with excellent forward flexion. Rotation shows mild stiffness as expected. Strength is improving. He does get some mild deltoid tightness, but no real pain or guarding. There is no click, clunk or instability. Two view x-rays show stable position and alignment of the right reverse arthroplasty. No sign of subluxation or dislocation seen. ASSESSMENT AND PLAN: Assessment/Plan Follow up right reverse total shoulder arthroplasty. The nature of the findings were discussed at length. Home exercise program is recommended to be increased. He has laid off on some of his exercises. He is back golfing and doing well in general. Follow up will be in three months for repeat x-ray and exam, sooner if worse. He voices verbal understanding. He is discharged in stable condition. The patient was seen and examined. From the time of check in, nurse triage, vital signs, x-ray, x-ray interpretation, review of systems, comprehensive history and physical exam as well as setting up treatment plan and further management took 35 minutes. Cosigned by Leyda Muse DO at 02/01/2025 4:11 PM EDT documented in this encounterSaint John's Saint Francis [id number] Hospital Discharge instructions Patient Education 01/30/2025 12:02:08 Transrectal Ultrasound-Guided Prostate Biopsy, Care After Transrectal [...] discomfort near your rectum, especially while sitting. [place]-colored urine due to small amounts of blood in your urine. A burning feeling while urinating. Blood in your stool (feces) or bleeding from your rectum. Blood in your semen. Follow these instructions at home: Medicines Take skzl-ugo-nhnkpwa and prescription medicines only as told by your health care provider. If you were given a sedative during your procedure, it can affect you for several hours. Do not drive or operate machinery until your health care provider says that it is safe. If you were prescribed an antibiotic medicine, take it as told by your health care provider. Do notstop using the antibiotic even if you start [...] pain and discomfort around your rectum, especially whilesitting. You may have blood in your urine [...] provider. Document Revised: 01/06/2022 Document Reviewed: 01/06/2022 [employer] Patient Education 2023 [employer]. 01/30/2025 12:02:07 Transrectal Ultrasound-Guided Prostate Biopsy Transrectal Ultrasound-Guided Prostate Biopsy A transrectal ultrasound-guided prostate biopsy is a procedure to remove samples of prostate tissuefor testing. The prostate is a walnut-sized gland that is located below the bladder and in front ofthe rectum. During this procedure, a small device (probe) is lubricated and put inside the rectum. The probe sends out sound waves that make a picture of the prostate and surrounding tissues (transrectal ultrasound). The images are used to help guide the process of removing the samples. The samplesare taken to a lab to be checked [...] including vitamins, herbs, eye drops, creams, and obfp-gxy-sjytyrb medicines. Any problems you or family members [...] provider tells you to take them. Taking gbib-pyn-nnfmsrh medicines, vitamins, herbs, and supplements. General instructions [...] blood oxygen level will be monitored until youleave the hospital or clinic. You may have [...] hospital or clinic, and follow up with yourhealth care provider for your results. This information is not intended to replace advice given to you by your health care provider. Make sure you discuss any questions you have with your health care provider. Document Revised: 01/06/2022 Document Reviewed: 01/06/2022 [employer] Patient Education 2023 [employer]. Follow Up Care 08/01/2024 10:46:26 With:JUANA HOGAN, Teodora Weber, URL Address: [facility] [address] [place] [address] [phone] When: Unknown [facility] 07-07-2025 NotePatient Education Oncology Transrectal Ultrasound-Guided Prostate Biopsy, Care After The following information offers guidance on how to care for yourself after your procedure. Your health care provider may also give you more specific instructions. If you have problems or questions, contact your health care provider. What can I expect after the procedure? After the procedure, it is common to have: ??? Pain and discomfort near your rectum, especially while sitting. ??? [place]-colored urine due to small amounts of blood in your urine. ??? A burning feeling while urinating. ??? Blood in your stool (feces) or bleeding from your rectum. ??? Blood in your semen. Follow these instructions at home: Medicines ??? Take tumt-uct-jkcyvuc and prescription medicines only as told by your health care provider. ??? If you were given a sedative during your procedure, it can affect you for several hours. Do notdrive or operate machinery until your health care provider says that it is safe. ??? If you were prescribed an antibiotic medicine, take it as told by your health care provider. Donot stop using the antibiotic even if you start to feel better. Activity ??? Return to your normal activities as told by your health care provider. Ask your health care provider what activities are safe for you. ??? Ask your health care provider when it is okay for you to resume sexual activity. ??? You may have to avoid lifting. Ask your health care provider how much you can safely lift. General instructions ??? Drink enough fluid to keep your urine pale yellow. ??? Watch your urine, stool, and semen for new or increased bleeding. ??? Keep all follow-up visits. This is important. Contact a health care provider if: ??? You have any of the following: ? Blood clots in your urine or stool. ? Blood in your urine more than 2 weeks after the procedure. ? Blood in your semen more than 2 months after the procedure. ? New or increased bleeding in your urine, stool, or semen. ? Severe pain in your abdomen. ??? Your urine smells bad or unusual. ??? You have trouble urinating. ??? Your lower abdomen feels firm. ??? You have problems getting an erection. ??? You have nausea or you vomit. Get help right away if: ??? You have a fever or chills. This could be a sign of infection. ??? You have bright red urine. ??? You have severe pain that does not get better with medicine. ??? You cannot urinate. Summary ??? After this procedure, it is common to have pain and discomfort around your rectum, especially while sitting. ??? You may have blood in your urine and stool after the procedure. ??? It is common to have blood in your semen after this procedure. ??? Get help right away if you have a fever or chills. This could be a sign of infection. This information is not intended to replace advice given to you by your health care provider. Make sure you discuss any questions you have with your health care provider. Document Revised: 01/06/2022 Document Reviewed: 01/06/2022 [employer] Patient Education ? 2023 [employer] Transrectal Ultrasound-Guided Prostate Biopsy A transrectal ultrasound-guided prostate biopsy is a procedure to remove samples of prostate tissuefor testing. The prostate is a walnut-sized gland that is located below the bladder and in front ofthe rectum. During this procedure, a small device (probe) is lubricated and put inside the rectum. The probe sends out sound waves that make a picture of the prostate and surrounding tissues (transrectal ultrasound). The images are used to help guide the process of removing the samples. The samplesare taken to a lab to be checked for prostate cancer. This procedure is usually done to evaluate the prostate gland of men who have raised (elevated) levels of prostate-specific antigen (PSA), which can be a sign of prostate cancer or prostate enlargement related to aging (benign prostatic hyperplasia, or BPH). Tell a health care provider about: ??? Any allergies you have. ??? All medicines you are taking, including vitamins, herbs, eye drops, creams, and ruxm-vac-noicgwn medicines. ??? Any problems you or family members have had with anesthetic medicines. ??? Any bleeding problems you have. ??? Any surgeries you have had. ??? Any medical conditions you have. ??? Any prostate infections you have had. What are the risks? Generally, this is a safe procedure. However, problems may occur, including: ??? Prostate infection. ??? Bleeding from the rectum. ??? Blood in the urine. ??? Allergic reactions to medicines. ??? Damage to surrounding structures such as blood vessels, organs, or muscles. ??? Difficulty passing urine. ??? Nerve damage. This is usually temporary. What happens before the procedure? Medicines Ask your health care provider about: ??? Changing or stopping your regular medicines. This is especial (more content not included)...[facility]05[facility] History of Present illness Narrative* Maia Vital, PT - 12/09/2024 2:30 PM EDT Time In: 2:30 pm Time Out: 3:30 pm Supervised Time: 50 Total Time: 60 Visit Number: 15 Chief Complaint: Z96.611 (ICD-10-CM) - Status post reverse total arthroplasty of right shoulder 09/26/24 11 weeks post op 12/12/24 Pt believes he is around 85-90% improved since SOC. He made sure to let me know he underestimated his last report of 75% improved on last session. Practiced swinging golf club without any trouble. Hewants to get back into playing and is thinking about going to the driving range soon. Precautions: protocol. 2011 spinal fusion L4/5 lumbar. BTKAs R 2013 [place], [address] Eleni HERNANDEZ: flexion 136* Interventions: X 25 minutes of manual therapy PROM and gentle joint glides X 25/10 minutes supervised therapeutic exercise per flowsheet PT Assessment: Tightness at end ranges all motions R shoulder. Swelling in upper arm still present compared to L. Weakness shoulder flexion and abduction. Progression of resistive ex per flowsheet. Gave pt written HEP with TB to work on daily strengthening. Discussion of decreasing frequency to 1x per week for 3 weeks to maximize ROM and strength gains. OK to play golf with gradual progression of full swing clubs. documented in this encounterSaint John's Saint Francis [id number] History of Present illness Narrative* Caty Lloydoney - 11/22/2024 8:30 AM EDT Images from the original note were not included. Matty Liang is a 69 y.o. male presents with chief complaint of PO < 90 days status post rightreverse total shoulder arthroplasty. HPI: Matty is here for his right shoulder replacement. He is doing well. Pain is controlled. He denies any numbness or tingling, no fever, chills or constitutional symptoms. SUBJECTIVE: MEDICATIONS: Current Outpatient Medications Medication Instructions amitriptyline (Elavil) 25 MG tablet TAKE 2 TABLETS BY MOUTH EVERY DAY AT BEDTIME atorvastatin (LIPITOR) 40 mg, Daily diclofenac (VOLTAREN) 75 mg, Daily sildenafil (Viagra) 50 MG tablet TAKE 1 TABLET BY MOUTH ONCE DAILY NEEDED temazepam (Restoril) 30 MG capsule TAKE 1 CAPSULE BY MOUTH EVERYDAY AT BEDTIME ALLERGIES: Allergies Allergen Reactions Neosporin [Bacitracin-Polymyxin B] SURGICAL HISTORY: Past Surgical History: Procedure Laterality Date TOTAL KNEE ARTHROPLASTY Left 2019 LTKA_ MTP TOTAL SHOULDER ARTHROPLASTY Right 09/26/2024 R REV TSA MTP FAMILY HISTORY: No family history on file. SOCIAL HISTORY: Social History Tobacco Use Smoking status: Never Smokeless tobacco: Never Vaping Use Vaping status: Never Used Depression: Not on file REVIEW OF SYMPTOMS: The review of systems, history and current medications list are all reviewed today. OBJECTIVE: Visit Vitals Ht 6' Wt 286 lb BMI 38.79 kg/m Smoking Status Never BSA 2.57 m Physical Exam On physical exam, he is alert and oriented. Vital signs are stable. There is no obvious sign of rash or infection. The incision is clean, dry and intact. He has a stable arc of motion with stiffness as expected. Strength is improving. Pain is well controlled. There is no click, clunk or instability. X-rays, permanently saved to the patient's record, are reviewed two views AP and Y show stable position and alignment of the reverse arthroplasty. There is no subluxation or dislocation seen. ASSESSMENT AND PLAN: Assessment/Plan Follow up right reverse total shoulder arthroplasty. The nature of the findings were discussed at length. He does appear to be healing appropriately. Hewill continue with his physical therapy over the next two to three weeks, graduating to a home program. Follow up will be in the next two to three months for x-ray and exam, sooner if worse. He voices verbal understanding. He is discharged in stable condition. Numerous questions were answered. Cosigned by Leyda Muse DO at 11/24/2024 4:48 PM EDT documented in this encounterSaint John's Saint Francis [id number] History of Present illness Narrative* Maia Vital, PT - 11/15/2024 3:30 PM EDT Time In: 3:30 pm Time Out: 4:20 pm Supervised Time: 40 Total Time: 50 Visit Number: 9 Chief Complaint: Z96.611 (ICD-10-CM) - Status post reverse total arthroplasty of right shoulder 09/26/24 7 weeks post op 11/14/24 Mildly sore with minimal pain. Has mowed his yard twice so far and may mow it a third time without adverse effect. He has not tried weed eating yet. He is asking about weight restrictions. I told himas long as weight is nonpainful and ~3-5# at this point. Precautions: protocol. 2011 spinal fusion L4/5 lumbar. BTKAs R 2013 [place], [address] Muse Interventions: X 15 minutes of manual therapy PROM X 35/10 minutes of supervised/unsupervised therex per flowsheet PT Assessment: Minor soreness of R shoulder. Increased resistance today to his tolerance. He is unable to perform ball up wall exercise with adequate quality so will wait on this. Compensation seen with active elevation attempts in standing. Need to work on abduction in scapular plane only. Needs more work on scapular strength and deltoid. Advised him to schedule 3 more weeks of PT to focus on strength buildingwithout compensation. documented in this [facility]04-11-2025 History of Present illness Narrative* Maia Vital, PT - 11/04/2024 3:30 PM EDT Time In: 3:35 pm Time Out: 4:20 pm Supervised Time: 45 Total Time: 45 Visit Number: 6 Chief Complaint: Z96.611 (ICD-10-CM) - Status post reverse total arthroplasty of right shoulder 09/26/24 6 weeks post op 11/07/24 A little sore R shoulder. Planning on mowing his lawn tomorrow riding and push mow. Precautions: protocol. 2011 spinal fusion L4/5 lumbar. BTKAs R 2013 [place], [address] Muse Objective: AAROM: Flexion: 118* Interventions: X 15 minutes of manual therapy PROM within protocol X 30 minutes of supervised therex per flowsheet PT Assessment: Minor soreness of R shoulder. Pain at end range of flexion ROM. Initiated some of resisted exercisewith fair tolerance. Unable to bench press with any resistance. Instructed pt in caution regarding lawnmowing pushmowing with little to no resistance with RUE. Unable to lift anything over 2# withoutpain. Proceed with 6 weeks protocol exercises next week with gradual progression. documented in this [facility]03-31-2025 History of Present illness Narrative* Maia Vital, PT - 10/24/2024 10:30 AM EDT Time In: 10:30 am Time Out: 11:25 am Supervised Time: 55 Total Time: 55 Visit Number: 3 Chief Complaint: Z96.611 (ICD-10-CM) - Status post reverse total arthroplasty of right shoulder 09/26/24 4 weeks post op 10/24/24 Precautions: protocol. 2011 spinal fusion L4/5 lumbar. BTKAs R 2013 [place], [address] Muse Subjective R shoulder a little sore. Doing HEP. Rid of sling today. Interventions: X 25 minutes of manual therapy PROM within protocol X 30 minutes of supervised therex per flowsheet PT Assessment: Issued isometric HEP and advised to get pulleys for home use. He was noncommittal about purchasing hansel set for home but I explained necessity for them. Sore with end range of motion at ~110* flexion and abduction. DC sling. Pt tolerated session well. documented in this encounterSaint John's Saint Francis [id number] NoteProgress Note-Physician Patient: MATTY LIANG Age: 68 years Sex: Male : 1955 Associated Diagnoses: None Author: Maxim Biswas MD Postoperative Information Postoperative disposition: Postoperative disposition: To PACU. Optimetrix number: Optimetrix number [id number]. Anesthetic utilized: General. Health Status Allergies: Allergic Reactions (Selected) Severity Not Documented Neosporin- Rash. Physical Examination VS/Measurements Pain Assessment: Controlled. General: Awake, Appropriate. Respiratory: Adequate air exchange. Cardiovascular: Stable. Neurological Assessment Anesthetic outcome No anesthetic complications noted. Adequate pain relief. Review / Management Condition: Stable. Plan Transfer/Discharge: Transfer/Discharge Discharge when meets criteria ( To home ).[facility] SystemComment on above:Result Comment: Electronically Signed By: Maxim Biswas MD\.br\Date and Time Signed: 09/28/24 14:44 EST 09-26-2024 Hospital Discharge instructions Patient Education 09/26/2024 14:19:47 Shoulder Cryocuff Patient Instructions - FT (CUSTOM) 09/26/2024 14:19:44 Post Op Patient Instructions - FT (CUSTOM) 09/19/2024 13:10:15 Jessa Macias - Shoulder Replacement (CUSTOM) [place], [place] [facility] DISCHARGE INSTRUCTIONS: SHOULDER REPLACEMENT MEDICATIONS You will be given a prescription for pain medication. This should be taken with food as needed. This may cause stomach upset, dizziness, and possible constipation. Please notify the office if you have any medication allergies to this type of medication or if any problems develop with the medication. DRESSING CHANGES Leave your bandage in place until your follow up visit. The bandage is waterproof, so you may shower it home. Any increase in pain, temperature over 101 degrees, redness, or drainage should be reported to the office prior to your first office visit. ACTIVITY You may continue to progress activity as comfortably tolerated with your opposite arm. You may begin to use your elbow, wrist, and hand as directed in physical therapy. You should only remove your sling for bathing and to perform range of motion exercises for the hand, wrist, and elbow. Do not actively move your shoulder Continue to ice the shoulder several times per day until follow up. ANESTHESIA PRECAUTIONS You should not operate a vehicle, automobile, bicycle or motorcycle, machinery, or power tools, make any important decisions, or drink alcohol for 24 hours. It may be beneficial to have a responsible adult remain with you for your first 24 hours after surgery. You may be drowsy and light-headed. DRIVING Driving is legal, however, if you are involved in an accident, you must be able to prove that you maintained full control of your vehicle. For this reason, it is advised that you do not drive until your strength returns. PROBLEMS You should notify the office for any persistent or heavy bleeding, temperature above 101, redness, swelling, or drainage from the operative site, severe pain at the operative site, or the developmentof persistent vomiting. Leyda Muse DO [facility] [address] [place] [id number] Reviewed: Follow Up Care 08/18/2024 10:13:10 With:LISANDRO Estevez Address: [address] [place] [phone] Business (1) When:10/11/2024 14:00:00 Comments:Keep scheduled appointment [facility] 03-03-2025 NotePatient Education - Text [place], [place] [facility] DISCHARGE INSTRUCTIONS: SHOULDER REPLACEMENT MEDICATIONS You will be given a prescription for pain medication. This should be taken with food as needed. This may cause stomach upset, dizziness, and possible constipation. Please notify the office if you have any medication allergies to this type of medication or if any problems develop with the medication. DRESSING CHANGES Leave your bandage in place until your follow up visit. The bandage is waterproof, so you may shower it home. Any increase in pain, temperature over 101 degrees, redness, or drainage should be reported to the office prior to your first office visit. ACTIVITY You may continue to progress activity as comfortably tolerated with your opposite arm. You may begin to use your elbow, wrist, and hand as directed in physical therapy. You should only remove your sling for bathing and to perform range of motion exercises for the hand, wrist, and elbow. Do not actively move your shoulder Continue to ice the shoulder several times per day until follow up. ANESTHESIA PRECAUTIONS You should not operate a vehicle, automobile, bicycle or motorcycle, machinery, or power tools, make any important decisions, or drink alcohol for 24 hours. It may be beneficial to have a responsible adult remain with you for your first 24 hours after surgery. You may be drowsy and light-headed. DRIVING Driving is legal, however, if you are involved in an accident, you must be able to prove that you maintained full control of your vehicle. For this reason, it is advised that you do not drive until your strength returns. PROBLEMS You should notify the office for any persistent or heavy bleeding, temperature above 101, redness, swelling, or drainage from the operative site, severe pain at the operative site, or the developmentof persistent vomiting. Leyda Muse, DO [facility] [address] [place], [place] [id number] Reviewed: [facility]03-03-[facility] Evaluation + Plan note Extracted from:Title:Op Note skeletonAuthor:Leyda Muse DO TDate:09/26/24 Impression and Plan Diagnosis Pre-op dx-right shoulder oa/chronic rc tear Post-op dx-same Procedure-rt reverse TSA/bicep tenodesis Anesthesia-gen block EBL-100 cc TT-0 To Recovery Room in stable and satisfactory condition.. Extracted from:Title:ANES Pre-operative Note uthor:Maxim Biswas MDDate: 09/26/24 Plan [place] [employer]hes[employer] (ASA) physical status classification: Class III. Anesthetic Preoperative Plan: Anesthesia General. Regional Interscalene block. Future Appointments Appointment Date:01/16/2025 08:45:00 AM Scheduled Provider: Location:[facility] Appointment Type:URO Nurse Visit Appointment Date:01/30/2025 11:15:00 AM Scheduled Provider:Teodora ARIAS MD Location:[facility] Appointment Type:URO Office Visit [facility] [id number] NoteProgress Note-Physician Patient: MATTY LIANG Age: 68 years Sex: Male : 1955 Associated Diagnoses: None Author: Maxim Bsiwas MD Preoperative Information Anesthesia Preop Info: Time patient last ate or drank 09/26/2024 00:00:00. Anesthesia history: Patient history: None. Family history+: None. Informed consent: Signed by patient. Re-evaluation prior to induction: Initial evaluation reviewed: No significant change. Review of Systems Eye Ear/Nose/Mouth/Throat Respiratory: No shortness of breath, No cough. Cardiovascular: Negative, No chest pain. Musculoskeletal Neurologic Health Status Allergies: Allergic Reactions (Selected) Severity Not Documented Neosporin- Rash., Allergies (1) Active Severity Reaction Neosporin Rash Current medications: (Selected) Inpatient Medications Ordered Arixtra 2.5 mg/0.5 mL Injection: 2.5 mg = 0.5 mL, Injection, SubCutaneous, qAM for 10 day(s), Stop date 10/07/24 6:29:00 EDT, Routine, Start date 09/27/24 6:30:00 EST, Start AM postop day 1, 256:30:00 EST Colace 100 mg Cap: 100 mg = 1 cap(s), Cap, Oral, BID, Routine, Start date 09/26/24 21:00:00 EST Dulcolax 5 mg Tab-EC: 10 mg = 2 tab(s), Tab-EC, Oral, Daily PRN Constipation, Routine, Start date 09/28/24 11:15:00 EST HYDROmorphone 1 mg/mL injectable solution: 1 mg = 1 mL, Injection, IV Push, q2hr PRN Pain 8-10 for 5 day(s), Stop date 10/01/24 11:14:00 EST, Routine, Start date 09/26/24 11:15:00 EST, 09/26/24 11:15:00 EST Lactated Ringers IV Ade 1000 mL 1,000 mL: 1,000 mL, IV, 80 mL/hr, Routine, Start date 09/26/24 11:15:00 EST, 12.5 hour(s), Total volume (mL): 1,000, 129 kg, 2.59, m2 Milk of Magnesia 8% Susp-Oral: 30 mL, Susp-Oral, Oral, BID PRN Constipation, Routine, Start date 09/26/24 11:15:00 EST Pantoprazole [address] Tab: 40 mg = 1 tab(s), Tab-DR, Oral, Daily, Routine, Start date 09/27/24 9:00:00 EST Sodium Chloride 0.9% IV Ade 1000 mL 1,000 mL: 1,000 mL, IV, 150 mL/hr, Routine, Start date :15:00 EST, 6.7 hour(s), Total volume (mL): 1,000, 129 kg, 2.59, m2 Zofran 4 mg/2 mL Injection: 4 mg = 2 mL, Injection, IV Push, q6hr PRN Nausea/Vomiting, Routine, Start date 09/26/24 11:15:00 EST, 09/26/24 11:15:00 EST acetaminophen-oxycodone 325 mg-5 mg Tab: 1 tab(s), Tab, Oral, q4hr PRN Pain 4-7 for 5 day(s), Stop date 10/01/24 11:14:00 EST, Routine, Start date 09/26/24 11:15:00 EST acetaminophen-oxycodone 325 mg-5 mg Tab: 2 tab(s), Tab, Oral, q4hr PRN Pain 4-7 for 5 day(s), Stop date 10/01/24 11:14:00 EST, Routine, Start date 09/26/24 11:15:00 EST cefazolin additive + Sodium Chloride 0.9% intravenous solution 100 mL: 3 gram = 1 EA, Injection, IVPiggyback, PREOP, Routine, Start date 09/26/24 8:15:00 EST, 200 mL/hr, Infuse over 30 minute(s) cefazolin additive + Sodium Chloride 0.9% intravenous solution 50 mL: 2 gm = 1 EA, IV Piggyback, q8hr for 2 dose(s), Stop date 09/27/24 3:59:00 EST, Routine, Start date 09/26/24 12:00:00 EST, 100 mL/hr, Infuse over 30 minute(s), 09/26/24 11:15:00 EST morphine 2 mg/mL Inj: 2 mg = 1 mL, Injection, IV Push, q4hr PRN Pain 8-10 for 5 day(s), Stop date 10/01/24 11:14:00 EST, Routine, Start date 09/26/24 11:15:00 EST Prescriptions Prescribed Colace 100 mg Cap: 100 mg = 1 cap(s), Oral, BID, # 20 cap(s), Refills(s) 0, Pharmacy: [facility]/pharmacy #[id number], 187, cm, 08/29/24 12:41:00 EST, Height/Length Dosing, 129, kg, 08/29/24 12:41:00 EST, Weight Dosing Percocet 5 mg-325 mg oral tablet: See Instructions, 50 tab(s), Refill(s) 0, Take one to two oral every 4 hours as needed for surgical pain., [facility]/pharmacy #[id number], 187, cm, 08/29/24 12:41:00 EST, Height/Length Dosing, 129, kg, 08/29/24 12:41:00 EST, Weight Dosing Documented Medications Documented Centrum Adults 50 Plus MultiGummies: See Instructions, Refill(s) 0, Prophylaxis Colace 100 mg Cap: 100 mg = 1 cap(s), Oral, BID, PRN as needed for constipation, Refills(s) 0 Fish Oil 1000 mg oral capsule: 1,000 mg = 1 cap(s), Oral, Daily, Refills(s) 0, Prophylaxis Non-Formulary Medication: See Instructions, Super Beta Prostate 2tabs daily for prostate health Tylenol Extra Strength 500 mg oral tablet: 1,000 mg = 2 tab(s), Oral, q4hr, PRN for pain amitriptyline 25 mg Tab: 50 mg = 2 tab(s), Oral, Once a day (at bedtime), Depression atorvastatin 20 mg Tab: 20 mg = 1 tab(s), Oral, Daily, Refills(s) 0, High cholesterol diclofenac: 75 mg, Oral, Daily, Inflammation sildenafil 50 mg Tab: 50 mg = 1 tab(s), Oral, Daily, PRN Other (see comment), 1 hour before sexual activity, Refills(s) 0 temazepam 30 mg Cap: 30 mg = 1 cap(s), Oral, Once a day (at bedtime), PRN for sleep, Home Medications (12) Active amitriptyline 25 mg Tab 50 mg = 2 tab(s), Oral, Once a day (at bedtime) atorvastatin 20 mg Tab 20 mg = 1 tab(s), Oral, Daily Centrum Adults 50 Plus MultiGummies See Instructions Colace 100 mg Cap 100 mg = 1 cap(s), PRN, Oral, BID Colace 100 mg Cap 100 mg = 1 cap(s), Oral, BID diclofenac 75 mg, Oral, Daily (more content not included)...[facility] SystemComment on above:Result Comment: Electronically Signed By: True HOGAN, Maxim Wall\.stephanie\Date and Time Signed: 09/26/24 09:35 [id number] NotePatient Education - Text [place], [place] [facility] DISCHARGE INSTRUCTIONS: SHOULDER REPLACEMENT MEDICATIONS You will be given a prescription for pain medication. This should be taken with food as needed. This may cause stomach upset, dizziness, and possible constipation. Please notify the office if you have any medication allergies to this type of medication or if any problems develop with the medication. DRESSING CHANGES Leave your bandage in place until your follow up visit. The bandage is waterproof, so you may shower it home. Any increase in pain, temperature over 101 degrees, redness, or drainage should be reported to the office prior to your first office visit. ACTIVITY You may continue to progress activity as comfortably tolerated with your opposite arm. You may begin to use your elbow, wrist, and hand as directed in physical therapy. You should only remove your sling for bathing and to perform range of motion exercises for the hand, wrist, and elbow. Do not actively move your shoulder Continue to ice the shoulder several times per day until follow up. ANESTHESIA PRECAUTIONS You should not operate a vehicle, automobile, bicycle or motorcycle, machinery, or power tools, make any important decisions, or drink alcohol for 24 hours. It may be beneficial to have a responsible adult remain with you for your first 24 hours after surgery. You may be drowsy and light-headed. DRIVING Driving is legal, however, if you are involved in an accident, you must be able to prove that you maintained full control of your vehicle. For this reason, it is advised that you do not drive until your strength returns. PROBLEMS You should notify the office for any persistent or heavy bleeding, temperature above 101, redness, swelling, or drainage from the operative site, severe pain at the operative site, or the developmentof persistent vomiting. Leyda Muse, [facility] [address] [place] [address] Reviewed: [facility]02-12[facility]20[facility] History of Present illness Narrative* Cristy Awan MA - 09/07/2024 8:45 AM ESTAssociated Order(s): M Inj/Asp: R olecranon bursa Post-Procedure Diagnose(s): Chronic elbow pain, right M Inj/Asp: R olecranon bursa on 09/07/2024 10:30 AM Indications: diagnostic evaluation Details: 25 G needle, ultrasound-guided Medications: 3 mg betamethasone acetate-betamethasone sodium phosphate 6 (3-3) MG/ML Outcome: tolerated well, no immediate complications Consent was given by the patient. * Caty Cervantes - 09/07/2024 8:45 AM EST Images from the original note were not included. Matty Liang is a 68 y.o. male presents with chief complaint of right lateral elbow and forearm pain. HPI: Matty is here with a several week history of pain along the lateral elbow and forearm. He has had aprior bone bruise to the mid forearm in the past. He has no fever or chills, no constitutional symptoms. He is set for shoulder replacement in a few weeks. SUBJECTIVE: MEDICATIONS: Current Outpatient Medications Medication Instructions amitriptyline (Elavil) 25 MG tablet TAKE 2 TABLETS BY MOUTH EVERY DAY AT BEDTIME atorvastatin (LIPITOR) 40 mg, Daily diclofenac (VOLTAREN) 75 mg, Daily sildenafil (Viagra) 50 MG tablet TAKE 1 TABLET BY MOUTH ONCE DAILY NEEDED temazepam (Restoril) 30 MG capsule TAKE 1 CAPSULE BY MOUTH EVERYDAY AT BEDTIME ALLERGIES: Allergies Allergen Reactions Neosporin [Bacitracin-Polymyxin B] SURGICAL HISTORY: Past Surgical History: Procedure Laterality Date TOTAL KNEE ARTHROPLASTY Left 2019 LTKA_ MTP FAMILY HISTORY: No family history on file. SOCIAL HISTORY: Social History Tobacco Use Smoking status: Never Smokeless tobacco: Never Vaping Use Vaping status: Never Used Depression: Not on file REVIEW OF SYMPTOMS: The review of systems, history and current medications list are all reviewed today. OBJECTIVE: Visit Vitals Ht 6' Wt 286 lb BMI 38.79 kg/m Smoking Status Never BSA 2.57 m Physical Exam On physical exam, he is alert and oriented. Vital signs are stable. The elbow has mild trace aseptic swelling over the last side. No sign of olecranon bursal inflammation. His joint is concentrically reduced with appropriate carrying angle. His collateral ligaments are intact. Ulnar nerve testing is negative. Radial tunnel exam is negative with Tinel's. There is positive Cozen's test for common lateral extensor tendonitis. No obvious sign of rupture. Medial epicondylar area is nontender. X-rays and imaging permanently saved to the patient's record were reviewed shows mild degenerative changes, two views, AP and lateral, taken in the [place] office. There is no fracture, dislocation,tumor or infection seen. ASSESSMENT AND PLAN: Assessment/Plan Right lateral epicondylitis. The nature of the findings were discussed at length. Ice, bracing, analgesics were reviewed. Activity modification was discussed. Appropriate application of tenodesis strap was discussed. With consent from the patient today, 1 cc of cortisone (3 mg of Betamethasone sodium phosphate with 3 mg of Betamethasone acetate) and 1 cc of 1% plain Lidocaine was injected from a sterile lateral approach under ultrasound guidance. Limited exam identifies the common lateral extensor tendon origin. There is no sign of rupture, cyst or mass. The needle was captured and saved to the permanent record with the ultrasound unit. He tolerated the injection well. He is aware he can have up to three injections per year. We discussed further management with therapy or surgical intervention. He is tentatively scheduled in a few weeks for his reverse arthroplasty. All questions are otherwise answered. He is discharged in stable condition. The patient was seen and examined. From the time of check in, nurse triage, vital signs, x-ray, x-ray interpretation, review of systems, comprehensive history and physical exam as well as setting up treatment plan and further management took 35 minutes. Cosigned by Leyda Muse DO at 09/19/2024 2:06 PM EST documented in this [facility]01-06-2025 Telephone encounter Note* Telephone Encounter - Janie Shay - 08/01/2024 2:23 PM EST R Shoulder OA, patient requesting CT- PER MTP JOSY please get auth- [id number] Miscellaneous Notes* Telephone Encounter - Janie Shay - 08/01/2024 2:23 PM EST R Shoulder OA, patient requesting CT- PER MTP JOSY please get auth- thank you documented in this encounterSaint [facility] [id number] Hospital Discharge instructions Patient Education 08/01/2024 10:35:38 Prostate Cancer Prostate Cancer The prostate is a small gland that produces fluid that makes up semen (seminal fluid). It is located below the bladder in men, in front of the rectum. Prostate cancer is the abnormal growth of cells in the prostate gland. What are the causes? The exact cause of this condition is not known. What increases the risk? You are more likely to develop this condition if: You are 65 years of age or older. You have a family history of prostate cancer. You have a family history of breast and ovarian cancer. You have genes that are passed from parent to child (inherited), such as BRCA1 and BRCA2. You have Londono syndrome. men and men of descent are diagnosed with prostate cancer at higher rates than other men. The reasons for this are not well understood and are likely due to a combination of genetic and environmental factors. What are the signs or symptoms? Symptoms of this condition include: Problems with urination. This may include: ?A weak or interrupted flow of urine. ?Trouble starting or stopping urination. ?Trouble emptying the bladder all the way. ?The need to urinate more often, especially at night. Blood in urine or semen. Persistent pain or discomfort in the lower back, lower abdomen, or hips. Trouble getting an erection. Weakness or numbness in the legs or feet. How is this diagnosed? This condition can be diagnosed with: A digital rectal exam. For this exam, a health care provider inserts a gloved finger into the rectum to feel the prostate gland. A blood test called a prostate-specific antigen (PSA) test. A procedure in which a sample of tissue is taken from the prostate and checked under a microscope (prostate biopsy). An imaging test called transrectal ultrasonography. Once the condition is diagnosed, tests will be done to determine how far the cancer has spread. This is called staging the cancer. Staging may involve imaging tests, such as a bone scan, CT scan, PETscan, or MRI. Stages of prostate cancer The stages of prostate cancer are as follows: Stage 1 (I). At this stage, the cancer is found in the prostate only. The cancer is not visible on imaging tests, and it is usually found by accident, such as during prostate surgery. Stage 2 (II). At this stage, the cancer is more advanced than it is in stage 1, but the cancer has not spread outside the prostate. Stage 3 (III). At this stage, the cancer has spread beyond the outer layer of the prostate to nearby tissues. The cancer may be found in the seminal vesicles, which are near the bladder and the prostate. Stage 4 (IV). At this stage, the cancer has spread to other parts of the body, such as the lymph nodes, bones, bladder, rectum, liver, or lungs. Prostate cancer grading Prostate cancer is also graded according to how the cancer cells look under a microscope. This is called the Nidia score and the total score can range from 6 10, indicating how likely it is that the cancer will spread (metastasize) to other parts of the body. The higher the score, the greater thelikelihood that the cancer will spread. Walls 6 or lower: This indicates that the cancer cells look similar to normal prostate cells (well differentiated). Nidia 7: This indicates that the cancer cells look somewhat similar to normal prostate cells (moderately differentiated). Walls 8, 9, or 10: This indicates that the cancer cells look very different than normal prostate cells (poorly differentiated). How is this treated? Treatment for this condition depends on several factors, including the stage of the cancer, your age, personal preferences, and your overall health. Talk with your health care provider about treatment options that are recommended for you. Common treatments include: Observation for early stage prostate cancer (active surveillance). This involves having exams, blood tests, and in some cases, more biopsies. For some men, this is the only treatment needed. Surgery. Types of surgeries include: ?Open surgery (radical prostatectomy). In this surgery, a larger incision is made to remove the prostate. ?A laparoscopic radical prostatectomy. This is a surgery to remove the prostate and lymph nodes through several small incisions. It is often referred to as a minimally invasive surgery. ?A robotic radical prostatectomy. This is laparoscopic surgery to remove the prostate and lymph nodes with the help of robotic arms that are controlled by the surgeon. ?Cryoablation. This is surgery to freeze and destroy cancer cells. Radiation treatment. Types of radiation treatment include: ?External beam radiation. This type aims beams of radiation from outside the body at the prostate to destroy cancerous cells. ?Brachytherapy. This type uses radioactive needles, seeds, wires, or tubes that are implanted into the prostate gland. Like external beam radiation, brachytherapy destroys cancerous cells. An advantage is that this type of radiation limits the damage to surrounding tissue and has fewer side effects. Chemotherapy. This treatment kills cancer cells or stops them from multiplying. It kills both cancer cells and normal cells. Targeted therapy. This treatment uses medicines to kill cancer cells without damaging normal cells. Hormone treatment. This treatment involves taking medicines that act on testosterone, one of the male hormones, by: ?Stopping your body from producing testosterone. ?Blocking testosterone from reaching cancer cells. Follow these instructions at home: Lifestyle Do not use any products that contain nicotine or tobacco. These products include cigarettes, chewing tobacco, and vaping devices, such as e-cigarettes. If you need help quitting, ask your health careprovider. Eat a healthy diet. To do this: ?Eat foods that are high in fiber. These include beans, whole grains, and fresh fruits and vegetables. ?Limit foods that are high in fat and sugar. These include fried or sweet foods. Treatment for prostate cancer may affect sexual function. If you have a partner, continue to have intimate moments. This may include touching, holding, hugging, and caressing your partner. Get plenty of sleep. Consider joining a support group for men who have prostate cancer. Meeting with a support group mayhelp you learn to manage the stress of having cancer. General instructions Take [id number] and prescription medicines only as told by your health care provider. If you have to go to the hospital, notify your cancer specialist (oncologist). Keep all follow-up visits. This is important. Where to find more information [place] [employer]: www.cancer.org [place] [employer]: www.cancer.net [employer] [place]: www.cancer.gov Contact a health care provider if: You have new or increasing trouble urinating. You have new or increasing blood in your urine. You have new or increasing pain in your hips, back, or chest. Get help right away if: You have weakness or numbness in your legs. You cannot control urination or your bowel movements (incontinence). You have chills or a fever. Summary The prostate is a small gland that is involved in the production of semen. It is located below a man's bladder, in front of the rectum. Prostate cancer is the abnormal growth of cells in the prostate gland. Treatment for this condition depends on the stage of the cancer, your age, personal preferences, and your overall health. Talk with your health care provider about treatment options that are recommended for you. Consider joining a support group for men who have prostate cancer. Meeting with a support group mayhelp you learn to manage the stress of having cancer. This information is not intended to replace advice given to you by your health care provider. Make sure you discuss any questions you have with your health care provider. Document Revised: 10/09/2021 Document Reviewed: 10/09/2021 [email or web address] Patient Education 2023 [employer]. Follow Up Care 07/07/2024 11:51:03 With:JUANA HOGAN, Teodora Weber, URL Address: [facility] [address], [place] [address]- When: Unknown [facility] 01-06-2025 NotePatient Education Oncology Prostate Cancer The prostate is a small gland that produces fluid that makes up semen (seminal fluid). It is located below the bladder in men, in front of the rectum. Prostate cancer is the abnormal growth of cells in the prostate gland. What are the causes? The exact cause of this condition is not known. What increases the risk? You are more likely to develop this condition if: ??? You are 65 years of age or older. ??? You have a family history of prostate cancer. ??? You have a family history of breast and ovarian cancer. ??? You have genes that are passed from parent to child (inherited), such as BRCA1 and BRCA2. ??? You have Londono syndrome. men and men of descent are diagnosed with prostate cancer at higher rates than other men. The reasons for this are not well understood and are likely due to a combination of genetic and environmental factors. What are the signs or symptoms? Symptoms of this condition include: ??? Problems with urination. This may include: ? A weak or interrupted flow of urine. ? Trouble starting or stopping urination. ? Trouble emptying the bladder all the way. ? The need to urinate more often, especially at night. ??? Blood in urine or semen. ??? Persistent pain or discomfort in the lower back, lower abdomen, or hips. ??? Trouble getting an erection. ??? Weakness or numbness in the legs or feet. How is this diagnosed? This condition can be diagnosed with: ??? A digital rectal exam. For this exam, a health care provider inserts a gloved finger into the rectum to feel the prostate gland. ??? A blood test called a prostate-specific antigen (PSA) test. ??? A procedure in which a sample of tissue is taken from the prostate and checked under a microscope (prostate biopsy). ??? An imaging test called transrectal ultrasonography. Once the condition is diagnosed, tests will be done to determine how far the cancer has spread. This is called staging the cancer. Staging may involve imaging tests, such as a bone scan, CT scan, PETscan, or MRI. Stages of prostate cancer The stages of prostate cancer are as follows: ??? Stage 1 (I). At this stage, the cancer is found in the prostate only. The cancer is not visibleon imaging tests, and it is usually found by accident, such as during prostate surgery. ??? Stage 2 (II). At this stage, the cancer is more advanced than it is in stage 1, but the cancer has not spread outside the prostate. ??? Stage 3 (III). At this stage, the cancer has spread beyond the outer layer of the prostate to nearby tissues. The cancer may be found in the seminal vesicles, which are near the bladder and the prostate. ??? Stage 4 (IV). At this stage, the cancer has spread to other parts of the body, such as the lymph nodes, bones, bladder, rectum, liver, or lungs. Prostate cancer grading Prostate cancer is also graded according to how the cancer cells look under a microscope. This is called the Walls score and the total score can range from 6?10, indicating how likely it is that the cancer will spread (metastasize) to other parts of the body. The higher the score, the greater thelikelihood that the cancer will spread. ??? Walls 6 or lower: This indicates that the cancer cells look similar to normal prostate cells (well differentiated). ??? Walls 7: This indicates that the cancer cells look somewhat similar to normal prostate cells (moderately differentiated). ??? Walls 8, 9, or 10: This indicates that the cancer cells look very different than normal prostate cells (poorly differentiated). How is this treated? Treatment for this condition depends on several factors, including the stage of the cancer, your age, personal preferences, and your overall health. Talk with your health care provider about treatment options that are recommended for you. Common treatments include: ??? Observation for early stage prostate cancer (active surveillance). This involves having exams, blood tests, and in some cases, more biopsies. For some men, this is the only treatment needed. ??? Surgery. Types of surgeries include: ? Open surgery (radical prostatectomy). In this surgery, a larger incision is made to remove the prostate. ? A laparoscopic radical prostatectomy. This is a surgery to remove the prostate and lymph nodes through several small incisions. It is often referred to as a minimally invasive surgery. ? A robotic radical prostatectomy. This is laparoscopic surgery to remove the prostate and lymph nodes with the help of robotic arms that are controlled by the surgeon. ? Cryoablation. This is surgery to freeze and destroy cancer cells. ??? Radiation treatment. Types of radiation treatment include: ? External beam radiation. This type aims beams of radiation from outside the body at the prostate to destroy cancerous cells. ? Brachytherapy. This type uses radioactive needles, seeds, wires, o (more content not included)...[facility] History of Present illness Narrative* Caty Cervantes - 07/28/2024 10:15 AM EST Matty Liang is a 68 y.o. male presents with chief complaint of right shoulder pain and stiffness. HPI: Matty is here for his right shoulder end stage osteoarthritis. He presents with his . Injectionon 02-03-2024 provided little to no relief. He has tried topicals with Salonpas. He takes Voltaren orally and currently once a day, trying to be safe. He is having significant night pain. He has tried physical therapy exercises for several months with increasing pain and stiffness with crepitance. Recent elevation of prostate antigen prompted a biopsy. He gets his results next week and would liketo find those out before moving forward with further discussion of shoulder replacement. SUBJECTIVE: MEDICATIONS: Current Outpatient Medications Medication Instructions amitriptyline (Elavil) 25 MG tablet TAKE 2 TABLETS BY MOUTH EVERY DAY AT BEDTIME atorvastatin (LIPITOR) 40 mg, Daily diclofenac (VOLTAREN) 75 mg, Daily sildenafil (Viagra) 50 MG tablet TAKE 1 TABLET BY MOUTH ONCE DAILY NEEDED temazepam (Restoril) 30 MG capsule TAKE 1 CAPSULE BY MOUTH EVERYDAY AT BEDTIME ALLERGIES: Allergies Allergen Reactions Neosporin [Bacitracin-Polymyxin B] SURGICAL HISTORY: Past Surgical History: Procedure Laterality Date TOTAL KNEE ARTHROPLASTY Left 2019 LTKA_ MTP FAMILY HISTORY: No family history on file. SOCIAL HISTORY: Social History Tobacco Use Smoking status: Never Smokeless tobacco: Never Vaping Use Vaping status: Never Used Depression: Not on file REVIEW OF SYMPTOMS: The review of systems, history and current medications list are all reviewed today. OBJECTIVE: Visit Vitals Ht 6' Wt 286 lb BMI 38.79 kg/m Smoking Status Never BSA 2.57 m Physical Exam On physical exam, he is alert and oriented. Vital signs are stable. His neck exam is stable with just mild stiffness. Negative Spurling's. The right shoulder has mild to moderate stiffness. Crepitance is present intermittently. Cuff strength is intact although guarded. Cross arm produces mild pain. Biceps exam is intact proximal and distally. Yergason's, Speed's and Dumont's tests are negative. He is neurovascularly intact to the bilateral upper extremities. X-rays updated today two views show end stage osteoarthritis of the right shoulder. This is bone onbone grade IV in nature. There is a moderate amount of decrease in the acromiohumeral interval. There is no fracture, dislocation, tumor or infection seen. ASSESSMENT AND PLAN: Assessment/Plan Right shoulder end stage osteoarthritis; cuff arthropathy. Recent elevation of his PSA at biopsy. The nature of the findings were discussed at length. We discussed CT scan with [facility]. We discussed the role of reverse arthroplasty, models, implants, time, healing, commitmentand immobilization were reviewed. Physical therapy protocol was discussed. We will set up a CT scanwith [facility] locally and I will see him back post testing. He will call to schedule this once he gets his prostate results and seeing where that is going. He will continue with his ice, Tylenol, topicals as well as Voltaren gel. He voices verbal understanding. He is discharged in stable condition. Numerous questions were answered. The patient was seen and examined. From the time of check in, nurse triage, vital signs, x-ray, x-ray interpretation, review of systems, comprehensive history and physical exam as well as setting up treatment plan and further management took 35 minutes. Cosigned by Leyda Muse DO at 08/01/2024 1:39 PM EST documented in this encounterSaint [facility]'s Saint [facility] [id number] Hospital Discharge instructions Patient Education 04/18/2024 09:21:40 Transrectal Ultrasound-Guided [...] discomfort near your rectum, especially while sitting. [place]-colored urine due to small amounts of blood in your urine. A burning feeling while urinating. Blood in your stool (feces) or bleeding from your rectum. Blood in your semen. Follow these instructions at home: Medicines Take clnv-non-rfqjvxw and prescription medicines only as told by your health care provider. If you were given a sedative during your procedure, it can affect you for several hours. Do not drive or operate machinery until your health care provider says that it is safe. If you were prescribed an antibiotic medicine, take it as told by your health care provider. Do notstop using the antibiotic even if you start [...] pain and discomfort around your rectum, especially whilesitting. You may have blood in your urine [...] provider. Document Revised: 01/06/2022 Document Reviewed: 01/06/2022 [employer] Patient Education 2023 [employer]Bio. 04/18/2024 09:21:39 Transrectal Ultrasound-Guided Prostate Biopsy Transrectal Ultrasound-Guided Prostate Biopsy A transrectal ultrasound-guided prostate biopsy is a procedure to remove samples of prostate tissuefor testing. The prostate is a walnut-sized gland that is located below the bladder and in front ofthe rectum. During this procedure, a small device (probe) is lubricated and put inside the rectum. The probe sends out sound waves that make a picture of the prostate and surrounding tissues (transrectal ultrasound). The images are used to help guide the process of removing the samples. The samplesare taken to a lab to be checked [...] including vitamins, herbs, eye drops, creams, and pjzd-gdp-lvxumyg medicines. Any problems you or family members [...] provider tells you to take them. Taking arke-bue-bjcghrf medicines, vitamins, herbs, and supplements. General instructions [...] blood oxygen level will be monitored until youleave the hospital or clinic. You may have [...] hospital or clinic, and follow up with yourhealth care provider for your results. This information is not intended to replace advice given to you by your health care provider. Make sure you discuss any questions you have with your health care provider. Document Revised: 01/06/2022 Document Reviewed: 01/06/2022 [employer] Patient Education 2023 [employer]-Bio. 04/18/2024 09:21:34 Magnetic Resonance Imaging Magnetic Resonance [...] including vitamins, herbs, eye drops, creams, and iqcy-exb-mticzyv medicines. Any surgeries you have had. Any [...] taken. Your health care provider will tell youwhen you can move. You may have to [...] may be told to drink plenty of fluidsto help flush the dye out of your [...] radio waves work together to form very detailedand clear images. In some cases, dye (contrast [...] provider. Document Revised: 03/26/2022 Document Reviewed: 11/14/2020 [employer] Patient Education 2023 PBS-Bio. Follow Up Care 03/23/2023 10:55:06 With:JUANA HOGAN, Teodora Weber, URL Address: [facility] [address] , [place] [address]- [phone] When: Unknown [facility] [place] 09-23-2024 NotePatient Education Oncology Transrectal Ultrasound-Guided Prostate Biopsy, Care [...] near your rectum, especially while sitting. ? [place]-colored urine due to small amounts of blood in your urine. ? A burning feeling while urinating. ? Blood in your stool (feces) or bleeding from your rectum. ? Blood in your semen. Follow these instructions at home: Medicines ? Take gesa-emp-bpfwsdj and prescription medicines only as told by [...] provider. Document Revised: 01/06/2022 Document Reviewed: 01/06/2022 [employer] Patient Education ? 2023 [employer] Transrectal Ultrasound-Guided Prostate Biopsy A transrectal ultrasound-guided prostate biopsy is a procedure to remove samples of prostate tissuefor testing. The prostate is a walnut-sized gland that is located below the bladder and in front ofthe rectum. During this procedure, a small device (probe) is lubricated and put inside the rectum. The probe sends out sound waves that make a picture of the prostate and surrounding tissues (transrectal ultrasound). The images are used to help guide the process of removing the samples. The samplesare taken to a lab to be checked [...] including vitamins, herbs, eye drops, creams, and acno-dxf-viuwhco medicines. ? Any problems you or family [...] thinners. ? Taking medici (more content not included)...[facility] 03-23-2023 Hospital Discharge instructions Patient Education 03/23/2023 10:35:30 Hydronephrosis Hydronephrosis [...] occur when a baby is developing in thewomb. These can include problems in the kidneys [...] how long it has been there, and whatcaused it. The goal of treatment is to [...] transplant. Follow these instructions at home: Take rpor-nra-kioljrb and prescription medicines only as told by [...] provider. Document Revised: 10/30/2020 Document Reviewed: 10/30/2020 [employer] Patient Education 2022 PBS-Bio. Follow Up Care 09/23/2022 11:42:03 With:JUANA HOGAN, Teodora Weber, URL Address: [facility] [address] , [place] [address]- [phone] When: Unknown Comments:1 yr w/ VIDAL [facility] 07-26-2023 Evaluation note* Encounter Date Diagnosis Assessment Notes Treatment Notes Treatment Clinical Notes Jan, History of colon polyps (ICD-10 - Z86.010) Patient to schedule colonoscopy in Apr 2023 Jan,Family history of colon cancer (ICD-10 - Z80.0) Jan,Internal hemorrhoids (ICD-10 - K64.8) Jan,onstipation (ICD-10 - K59.00)Patient may use dulcolax as needed [email or web address] Other 05-31-2023 Evaluation note* Encounter Date Diagnosis Assessment Notes Treatment Notes Treatment Clinical Notes November, Rectal bleeding (ICD-10 - K62.5) [email or web address] Other 02-28-2023 Hospital Discharge instructions Patient Education [...] 100 degrees. Follow Up Care 09/16/2022 10:31:51 With:Teodora ARIAS Address: [facility] [address] [place] [address]- Business (1) When:03/23/2023 11:38:35 Comments:With a [facility]02-16-2023 NoteOP Note OPERATION DATE: 09/11/2022 PREOPERATIVE DIAGNOSIS: Left ureteral calculus. POSTOPERATIVE DIAGNOSIS: Left ureteral calculus. PROCEDURE: 1. Cystoscopy. 2. Left rigid ureteral dilation. 3. Left ureteroscopy. 4. Holmium laser lithotripsy of a large hard left ureteral calculus. 5. Stone basket extraction of left ureteral calculus. 6. Placement of 6-Yemeni variable length left ureteral stent. 7. Clot evacuation. ANESTHESIA: General by Enedina SLATER CRNA COMPLICATIONS: None. INDICATIONS: Mr. Pritchard is [...] usual fashion. I started by passing a 22-Yemeni Olympus cystoscope per urethra and into the [...] kidney. I then used an 8 and 10-Yemeni rigid dilator to dilate the distal ureter. [...] into the bladder. I then slid a 6-Yemeni variable length stent over the wire, up into the kidney. The wire was removed and there were good curls in the kidney and in the bladder. One could not see in the bladder due to clots. I then used the Tangoe evacuator and did clot evacuation. I then was able to get the stone pieces from the base of the bladder out. These were sent for stone analysis. The bladder was drained of its contents and the scope was then removed. He was then transferred to a gurney bed and wheeled to PACU in stable condition.[facility] [id number] Evaluation + Plan note Future Scheduled Tests Radiology* Echo Transthoracic Complete 08/28/22 [facility]01-30-2023 Hospital Discharge instructions Patient Education 08/25/2022 08:19:37 [...] include: ?Spinach. ?Rhubarb. ?Beets. ?Potato chips and spanish fries. ?Nuts. If you regularly take a diuretic medicine, make sure to eat at least 1 2 fruits or vegetables high in potassium each day. These include: ?Avocado. ?Banana. ?[place], prune, carrot, or tomato juice. ?Baked potato. [...] Casseroles. Pizza. Lasagna. Frozen meals. Potato chips. Yemeni fries. Summary You can reduce your risk [...] 11/07/2011 Document Revised: 11/02/2019 Document Reviewed: 06/23/2017 [employer] Patient Education 2019 PBS-Bio. Follow Up Care 08/25/2022 08:16:40 With:Teodora ARIAS MD, URL Address: [facility] [address], [place] [address]- When: Unknown [facility] evaluation + Plan note No data available for this section [facility] evaluation + Plan note Future Appointments Appointment Date:03/23/2023 09:30:00 AM Scheduled Provider:Teodora ARIAS MD Location:[facility] Future Appointments Appointment Date:03/21/2024 09:15:00 AM Scheduled Provider:Teodora ARIAS [facility] Type:URO Office Visit [facility] evaluation + Plan note Future Appointments Appointment Date:01/16/2025 08:45:00 AM Scheduled Provider: [facility] Appointment Type:URO Nurse Visit Appointment Date:01/30/2025 11:15:00 AM Scheduled Provider:Teodora ARIAS MD [facility] Appointment Type:URO Office Visit Diagnostic Tests Pending * PSA Total 08/01/24 [facility] evaluation + Plan note Future Appointments Appointment Date:09/26/2024 12:30:00 PM Scheduled Provider: Location:[facility] Appointment Type:Surgery FT Appointment Date:01/16/2025 08:45:00 AM Scheduled Provider: [facility] Nurse Visit Appointment Date:01/30/2025 11:15:00 AM Scheduled Provider:Teodora ARIAS MD Location:[facility] Appointment Type:URO Office Visit [facility] Evaluation + Plan note Future Appointments Appointment Date:01/30/2025 11:15:00 AM Scheduled Provider:Teodora ARIAS MD Location:[facility] Appointment Type:URO Office Visit [facility] evaluation + Plan note Future Appointments Appointment Date:07/17/2025 09:30:00 AM Scheduled Provider:Teodora ARIAS MD Location:[facility] Appointment Type:URO Office Visit [facility] evaluation noteNo Cherry BirdLast Guide Other [facility] note* Diagnosis Chronic left shoulder pain- Primary Pain in joint, shoulder region Right shoulder pain, unspecified chronicity [facility] Diagnosis Pre-op testing- Primary Unspecified pre-operative examination Right shoulder pain, unspecified chronicity [facility]* Diagnosis Chronic elbow pain, right- Primary [facility]* Diagnosis Localized primary osteoarthritis of right shoulder region- Primary Status post reverse total arthroplasty of right shoulder Chronic right shoulder pain Pain in joint, shoulder region [facility]* Diagnosis Localized primary osteoarthritis of right shoulder region- Primary Chronic right shoulder pain Pain in joint, shoulder region Status post reverse total arthroplasty of right shoulder [facility]* Diagnosis Localized primary osteoarthritis of right shoulder region- Primary Chronic right shoulder pain Pain in joint, shoulder region Status post reverse total arthroplasty of right shoulder [facility]* Diagnosis Localized primary osteoarthritis of right shoulder region- Primary Chronic right shoulder pain Pain in joint, shoulder region Status post reverse total arthroplasty of right shoulder [facility]* Diagnosis Localized primary osteoarthritis of right shoulder region- Primary Chronic right shoulder pain Pain in joint, shoulder region Status post reverse total arthroplasty of right shoulder documented [facility]* Diagnosis Status post reverse total arthroplasty of right shoulder- Primary documented in this encounter [facility]* Diagnosis Localized primary osteoarthritis of right shoulder region- Primary Chronic right shoulder pain Pain in joint, shoulder region Status post reverse total arthroplasty of right shoulder documented in this encounter [facility] note* Diagnosis Localized primary osteoarthritis of right shoulder region- Primary Chronic right shoulder pain Pain in joint, shoulder region Status post reverse total arthroplasty of right shoulder documented in this encounter [facility]* Diagnosis Localized primary osteoarthritis of right shoulder region- Primary Chronic right shoulder pain Pain in joint, shoulder region Status post reverse total arthroplasty of right shoulder documented in this encounter [facility] note* Diagnosis Status post reverse total arthroplasty of right shoulder- Primary documented in this encounter [facility]* Diagnosis S/P reverse total shoulder arthroplasty, right- Primary documented in this encounter [facility] HealthcareHistory general Narrative - Reported* Type Description Date Surgical History tonsillectomy and adenoidectomy Surgical HistoryFoot SurgerySurgical Historybone spurSurgical HistoryRt knee replacement- [place] Tydtho2001Alqsaymx Historyhernia- bilateralSurgical Historywrist surgerySurgical HistoryLt ankleSurgical HistoryBack surgery- spinal [id number] HistoryLLE vein ablation & stab [id number] HistoryKIDNEY STONE08/2022Hospitalization Historysee aboveHospitalization HistoryNO [facility] IN THE LAST YEAR11/2022 [email or web address] Other Hospital Discharge instructions No data available for this section [facility] No data available for this section [facility] [place] reason for visit Narrative* Rehabilitation - Outpatient (Routine) - AuthorizedSpecialtyDiagnoses / ProceduresReferred By Contact Referred To ContactPhysical Therapy Diagnoses Status post reverse total arthroplasty of right shoulder Procedures PA OFFICE/OUTPATIENT NEW HIGH MDM 60 MINUTES Leyda Muse, DO [address] [place] [address] Phone: tel: fax: Vivien Mckeon, PT [address] [place] [address] Phone: tel: fax: Referral IDStatusReasonStart DateExpiration DateVisits RequestedVisits [id number] Consult and Treat 30 [facility] Summary Purpose Family History No Family History Records Found No data available for this section No data available for this section No Family History Records FoundNo Family History Records FoundNo Family History Records Found No data available for this section No Family History Records FoundNo Family History Records FoundNo Family History Records FoundNo Family History Records Found No data available for this section No Family History Records Found No data available for this section No data available for this section No Family History Records Found No data available for this section No Family History Records FoundNo Family History Records FoundNo Family History Records FoundNo Family History Records [...] team informatio n (unrecognized section and content) Team MemberRelationshipSpecialtyStart DateEnd Date Miles Donovan MD [facility] [place] [address] PCP - GeneralFamily Medicine01/11/24Team MemberRelationshipSpecialtyStart DateEnd Date Miles Donovan MD [facility] [place] [address] PCP - GeneralFamily Medicine01/11/24Team MemberRelationshipSpecialtyStart DateEnd Date Miles Donovan MD [address] [place] [address] PCP - GeneralFamily Medicine01/11/24Team MemberRelationshipSpecialtyStart DateEnd Date Miles Donovan MD [facility] [place] [address] PCP - GeneralFamily Medicine01/11/24Team MemberRelationshipSpecialtyStart DateEnd Date Miles Donovan MD [address] [place] [address] PCP - GeneralFamily Medicine01/11/24Team MemberRelationshipSpecialtyStart DateEnd Date Miles Donovan MD [address] [place] [address] PCP - GeneralFamily Medicine01/11/24Team MemberRelationshipSpecialtyStart DateEnd Date Miles Donovan MD [address] [place], [place] [phone] PCP - GeneralFamily Medicine01/11/24Team MemberRelationshipSpecialtyStart DateEnd Date Miles Donovan MD [address] [place] [address] PCP - GeneralFamily Medicine01/11/24Team MemberRelationshipSpecialtyStart DateEnd Date Miles Donovan MD [address] [place] [address] PCP - GeneralFamily Medicine01/11/24Team MemberRelationshipSpecialtyStart DateEnd Date Miles Donovan MD [address] [place] [address] PCP - GeneralFamily Medicine01/11/24Team MemberRelationshipSpecialtyStart DateEnd Date Miles Donovan MD [address] [place] [address] PCP - GeneralFamily Medicine01/11/24Team MemberRelationshipSpecialtyStart DateEnd Date Miles Donovan MD [address] [place] [address] PCP - GeneralFamily Medicine01/11/24Team MemberRelationshipSpecialtyStart DateEnd Date Miles Donovan MD [facility] [place] [address] PCP - GeneralFamily Medicine01/11/24Team MemberRelationshipSpecialtyStart DateEnd Date Miles Donovan MD [facility] [place] [address] PCP - GeneralFamily Medicine01/11/24Team MemberRelationshipSpecialtyStart DateEnd Date Miles Donovan MD [address] [place] [address] PCP - GeneralFamily Medicine01/11/24Team MemberRelationshipSpecialtyStart DateEnd Date Miles Donovan MD [facility] [place] [address] PCP - GeneralFamily Medicine01/11/24Team MemberRelationshipSpecialtyStart DateEnd Date Miles Donovan MD [facility] [place] [address] PCP - GeneralFamily Medicine01/11/24Team MemberRelationshipSpecialtyStart DateEnd Date Miles Donovan MD [address] [place] [address], [place] [address] PCP - GeneralFamily Medicine01/11/24Team MemberRelationshipSpecialtyStart DateEnd Date Miles Donovan MD [address] [place] [address] PCP - GeneralFamily Medicine01/11/24 (unrecognized sect ion and content) No Status Records FoundNo Status Records FoundNo Status Records FoundNo Status Records FoundNo Status Records FoundNo Status Records FoundNo Status Records FoundNo Status Records FoundNo Status Records FoundNo Status Records FoundNo Status Records FoundNo Status Records FoundNo Status Records FoundNo Status Records Found INFORMATION SOURCE (unrecogn ized section and content) DATE CREATED AUTHOR 09/19/2022 [facility] DATE CREATED AUTHOR AUTHOR'S ORGANIZ ATION 08/30/2024 [facility] DATE CREATED AUTHOR AUTHOR'S ORGANIZ ATION 09/26/2024 [facility] DATE CREATED AUTHOR AUTHOR'S ORGANIZ ATION 09/27/2024 [facility] DATE CREATED AUTHOR AUTHOR'S ORGANIZ ATION 09/30/2024 [facility] DATE CREATED AUTHOR AUTHOR'S ORGANIZ ATION 01/17/2025 [facility] DATE CREATED AUTHOR AUTHOR'S ORGANIZ ATION 02/03/2025 [facility] DATE CREATED AUTHOR AUTHOR'S ORGANIZ ATION 05/04/2025 [facility] DATE CREATED AUTHOR AUTHOR'S ORGANIZ ATION 05/06/2025 [facility] REASON FOR VISIT (unrecogniz ed section and content) ReasonCommentsOsteoarthritisReasonCommentsPainReasonCommentsPost-opReason CommentsFollow-upR REV TSA 09/26/24ReasonCommentsPain FOR RECORDS PERTAINING TO PATIENTS WHO ARE [...] BE BASED ON THE PRIMARY CLINICAL RECORDS. [facility] [employer] [facility]. provides no warranty or guarantee of the accuracy or completeness of information in this document.
--- NOTE | 2025-06-16 08:06 | XR_ITS ---
The [address] [address] Patient Name: MATTY LIANG MRN: [id number] date: 1955 Sex: M Assigned Patient Location: [facility] Current Patient Location: [facility] Accession/Order Number: [id number] Exam Date: 06/16/2025 08:41 Report Date: 06/16/2025 09:45 At the request of: TEODORA ARIAS MD Procedure: XR chest 2V PA AND LATERAL CHEST: CLINICAL HISTORY: Preoperative clearance COMPARISON: None There is no focal parenchymal consolidation, effusion or pneumothorax. The cardiac, hilar and mediastinal silhouettes are within normal limits. There is no vascular congestion. The visualized bony thorax is intact. There is slight dextroscoliotic curvature and minor endplate spurring at the spine. There is a partially imaged right shoulder prosthesis. XR/XR chest 2V IMPRESSION: NO ACUTE CARDIOPULMONARY ABNORMALITY. Impression dictated by: Marisa Peace M.D. 06/16/2025 9:45 AM Dictation Location: [place] [address] Electronically authenticated by: [id number] Y Date: 06/16/2025 09:45
--- NOTE | 2025-06-16 08:06 | ECG_ITS ---
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 Measurements Intervals [place] Rate: 81 P: 48 IA: 165 QRS: -24 QRSD: 119 T: 67 QT: 374 QTc: 436 Interpretive Statements SINUS RHYTHM BORDERLINE LEFT AXIS DEVIATION [QRS AXIS < -20] INCOMPLETE RIGHT BUNDLE BRANCH BLOCK [90+ ms QRS DURATION, TERMINAL R IN V1/V2, 40+ ms S IN I/aVL/V4/V5/V6] Abnormal ECG Compared to ECG 08/26/2022 13:00:33 No significant changes Electronically Signed On 06-16-2025 17:42:05 EST by CHARLINE HOUSTON M.D.
--- NOTE | 2025-06-16 08:36 | PM.PRESUREVA ---
History of Present Illness History of Present Illness Chief complaint: ELEVATED PSA, PROSTATE CA Narrative: Patient presents for presurgical testing. The patient is under surveillance for prostate cancer and has an elevated PSA and an abnormal MRI. The patient states he is not having any urinary complaints at this time and denies dysuria, hematuria, frequency with urination, or any other complaints. Review of Systems ROS Narrative REVIEW OF SYSTEMS: Negative except as stated in HPI, ten or more systems reviewed. Constitutional: No fever, chills, weakness ENT: No sore throat or epistaxis Cardiovascular: No edema, chest pain, palpitations, or activity intolerance Respiratory: No shortness of breath, cough, or wheezing Musculoskeletal: No joint pain or swelling Gastrointestinal: No abdominal pain, constipation, diarrhea, or vomiting Genitourinary: No dysuria or hematuria Neurological: No numbness, tingling, weakness, or headache Psychiatric: No mood changes PFSH PFS Medical History (Updated 06/16/25 @ 08:24 by Micaela Vargas NP) Prostate cancer ?C61 - Malignant neoplasm of prostate (ICD-10) Shoulder pain ?M25.519 - Pain in unspecified shoulder (ICD-10) Back pain ?M54.9 - Dorsalgia, unspecified (ICD-10) Arthritis ?M19.90 - Unspecified osteoarthritis, unspecified site (ICD-10) Erectile dysfunction ?N52.9 - Male erectile dysfunction, unspecified (ICD-10) Kidney stones ?N20.0 - Calculus of kidney (ICD-10) Acute bursitis ?M71.9 - Bursopathy, unspecified (ICD-10) Ureteral stone with hydronephrosis ?N13.2 - Hydronephrosis with renal and ureteral calculous obstruction (ICD-10) Microhematuria ?R31.29 - Other microscopic hematuria (ICD-10) History of kidney stones ?Z87.442 - Personal history of urinary calculi (ICD-10) Elevated PSA ?R97.20 - Elevated prostate specific antigen [PSA] (ICD-10) BPH (benign prostatic hyperplasia) ?N40.0 - Benign prostatic hyperplasia without lower urinary tract symptoms (ICD-10) Surgical History (Updated 06/16/25 @ 08:30 by Micaela Vargas NP) H/O prostate biopsy (07/18/24) ?Z98.890 - Other specified postprocedural states (ICD-10) S/P lumbar fusion ?Z98.1 - Arthrodesis status (ICD-10) Status post total shoulder arthroplasty ?Z96.619 - Presence of unspecified artificial shoulder joint (ICD-10) H/O left inguinal hernia repair ?Z98.890 - Other specified postprocedural states (ICD-10) ?Z87.19 - Personal history of other diseases of the digestive system (ICD-10) H/O varicose vein stripping ?Z98.890 - Other specified postprocedural states (ICD-10) H/O inguinal hernia repair ?Z98.890 - Other specified postprocedural states (ICD-10) ?Z87.19 - Personal history of other diseases of the digestive system (ICD-10) History of tonsillectomy ?Z90.89 - Acquired absence of other organs (ICD-10) H/O spinal fusion ?Z98.1 - Arthrodesis status (ICD-10) H/O excision of ganglion cyst ?Z98.890 - Other specified postprocedural states (ICD-10) H/O arthroscopy of knee ?Z98.890 - Other specified postprocedural states (ICD-10) History of total knee arthroplasty ?Z96.659 - Presence of unspecified artificial knee joint (ICD-10) Family History (Updated 06/16/25 @ 08:24 by Micaela Vargas NP) Other Family history of cancer Family history of diabetes mellitus Social History (Updated 06/16/25 @ 08:18 by Micaela Vargas NP) Within the past year, how often did you have a drink containing alcohol: never Score interpretation: A score less than 4 is consistent with normal alcohol consumption. Smoking status: Never smoker Non-prescribed substance use: denies use Highest level of school completed/degree received: high school graduate Meds Home Medications and Allergies Home Medications ?Medication ?Instructions ?Recorded ?Confirmed ?Type amitriptyline 50 mg tablet 50 mg PO DAILY 07/11/24 06/16/25 History atorvastatin 20 mg tablet 40 mg PO DAILY 07/11/24 06/16/25 History diclofenac sodium 75 mg 75 mg PO DAILY 07/11/24 06/16/25 History tablet,delayed release docusate sodium 100 mg capsule 100 mg PO BID 07/11/24 06/16/25 History (Colace) sildenafil 50 mg tablet 50 mg PO DAILY PRN sexual activity 07/11/24 06/16/25 History temazepam 30 mg capsule (Restoril) 30 mg PO BEDTIME PRN sleep 07/11/24 06/16/25 History Super Beta Prostate Supplement PO 06/16/25 History multivitamin (Daily Multi-Vitamin 1 tab PO DAILY 06/16/25 06/16/25 History tablet) Allergies Allergy/AdvReac Type Severity Reaction Status Date / Time bacitracin (From Neosporin Allergy Severe Rash Verified 06/16/25 08:15 (jce-yof-uxmeh)) neomycin (From Neosporin Allergy Severe Rash Verified 06/16/25 08:15 (oac-ezz-rsryx)) polymyxin B (From Neosporin Allergy Severe Rash Verified 06/16/25 08:15 (xfl-lmm-ksude)) Exam Narrative Exam Narrative: Constitutional: Awake, alert, comfortable, well-appearing, nontoxic, interactive, vital signs as charted Head: Normocephalic, atraumatic Neck: Supple, normal appearance, normal range of motion, no meningeal signs, no lymphadenopathy Respiratory: No respiratory distress, breath sounds clear Cardiovascular: Regular rate and rhythm, strong and regular heart tones Abdomen: Nontender, normal bowel sounds, soft, no CVA tenderness Musculoskeletal: Normal gait, no swelling or edema Skin: No rashes or induration, no lesions, only visible skin inspected Neuro: No neurological deficits, normal sensation Psychiatric: Oriented ?3, normal affect Assessment and Plan Assessment and Plan (1) Elevated PSA: (2) Prostate cancer: Plan Transperineal prostate biopsy scheduled with Dr. Yan June 27, 2025.
[2025-06-16 08:48] LABS: Hematocrit 46.8 % (42.0-54.0); Hemoglobin 15.5 g/dL (14.0-18.0); Immature Granulocytes Abs Auto 0.03 10^3/uL (0.00-0.03); Immature Granulocytes Pct Auto 0.4 % (0.0-0.5); Lymphocytes Absolute Auto 1.8 10^3/uL (1.2-3.8); Mean Corpuscular HGB Conc 33.1 g/dL (29.9-35.2); Mean Corpuscular Hemoglobin 29.8 pg (25.9-34.0); Mean Corpuscular Volume 89.8 fL (80.0-94.0); Platelet Count 202 10^3/uL (150-450); Red Blood Count 5.21 10^6/uL (4.70-6.10); White Blood Count 7.1 10^3/uL (4.0-11.0)
[2025-06-16 09:04] LABS: INR 0.98; Partial Thromboplastin Time 29.4 sec (22.3-36.2); Prothrombin Time 10.4 sec (9.0-11.6)
[2025-06-16 09:17] LABS: Anion Gap 11.6; Blood Urea Nitrogen 25.0 mg/dL (7.0-18.0); Calcium 8.9 mg/dL (8.5-10.1); Carbon Dioxide 27.5 mmol/L (21.0-32.0); Chloride 106 mmol/L (98-107); Estimated GFR (African America 58 (>=60 mL/min/1.73m^2); Estimated GFR (Non-African Ame 48 (>=60 mL/min/1.73m^2); Glucose 119 mg/dL (74-106); Potassium 4.1 mmol/L (3.5-5.1); Sodium 141 mmol/L (136-145)
== END 2025-06-16 07:51 | disposition home or self-care (01) ==
LOC: PST 07:51
PROVIDERS: PCP Family Medicine; Visit Provider Urology
DX: Z01.810 Encounter for preprocedural cardiovascular examination (principal); Z01.812 Encounter for preprocedural laboratory examination; Z01.818 Encounter for other preprocedural examination; R97.20 Elevated prostate specific antigen [PSA]
CPT/HCPCS: 36415; 71046; 80048; 85025; 85610; 85730; 93005; G0463

== ENCOUNTER 2025-06-27 07:55 | Day surgery (SDC) | payer MEDICARE, OTHER, SELFPAY ==
[2025-06-16 08:30] VITALS: BP 164/79; PULSE 89; TEMP 36.3; O2SAT 96; BMI 36.4
[2025-06-27] VITALS (10 sets, daily range): BP systolic 135–158; BP diastolic 81–95; PULSE 66–89; TEMP 36.6–36.8; O2SAT 92–99; BMI 36.3
--- OUTSIDE RECORDS SUMMARY | 2025-06-27 07:59 | XMS_ITS | Clinical Summary ---
Author Organization [facility] Healthcare Address [address] [place] [address] Care Team Providers Care Director Database Name Role Phone Jelani Donovan MD Primary [...] TAKE 1 TABLET BY MOUTH ONCE DAILY JCUCUK0607/24/2024ctive ciprofloxacin (Cipro) 500 MG tablet 5Active Active Problems ProblemNoted DateDiagnosed DateStatus post reverse total arthroplasty of right qdsvahal55/25/2025Localized primary osteoarthritis of right shoulder region 5Chronic right shoulder pain10/18/2024 Encounters DateTypeDepartmentCare CkjhXpjpkqrkitv14/07/2025 11:00 AM EDTOffice Visit [facility] [address] [facility] [place] [address] Josiah Knowles DO S/P reverse total shoulder arthroplasty, right (Primary Dx)05/02/2025 8:05 AM EDTAncillary Procedure [facility] [address] [facility] [place] [address] 05/02/2025Travelfrom Last 3 Months Social History Tobacco UseTypesPacks/DayYears UsedDateSmoking Tobacco: NeverSmokeless Tobacco: Never Tobacco Cessation:Counseling Given: Not Answered Sex and Gender InformationValueDate RecordedSex Assigned at BirthNot on file Legal ZneLbfc0210/08/2022 6:43 PM EDTGender IdentityNot on fileSexual Orientation Not on file Last Filed Vital Signs Vital SignReadingTime TakenCommentsBlood Jfinljvn112/8502/02/2023 12:00 PM EST Pulse--Kbnyividlcb49.3 ??C (97.4 ??F)02/03/2024 8:41 AM EDTRespiratory Rate-- Oxygen Saturation--Inhaled Oxygen Concentration--Izcotk052 kg (286 lb)05/02/2025 10:46 AM RHFTtdtmx744.9 cm (6')05/02/2025 10:46 AM EDTBody Mass Index38.79 05/02/2025 10:46 AM EDT Plan of Treatment DateTypeDepartmentCare Team (Latest Contact Info)Olmebnhdoqo10/03/2026 11:00 AM ESTOffice Visit [facility] [place] [facility] [address] [place] [address] Josiah Knowles, [address] [place] [place] [address] Health MaintenanceDue DateLast DoneCommentsCT Eipidenrmlkf15/01/1954Colonoscopy 4Colorectal Cancer Qayrqcchw01/01/1954FIT-DNA1953FIT1953 FOBT1953 7756Jtoylvweasxwf29/01/1954Pneumococcal Vaccine: 65+ Years (2 of 2 - PCV)COVID-19 Vaccine (2024- season)2025 08/30/2024, 04/23/2023, 02/27/2022, Additional history existsInfluenza Vaccine (#1)5008/30/2024, 04/23/2023, 05/01/2022, Additional history exists Procedures Procedure NamePriorityDate/TimeAssociated DiagnosisCommentsXR SHOULDER 2+ VIEWS IEEZHPomqrrf59/07/2025 8:03 AM EDT S/P reverse total shoulder arthroplasty, right from Last 3 Months Results * XR shoulder 2+ views right (05/02/2025 8:03 AM EDT)Anatomical RegionLaterality ModalityUpper Extremities, ShoulderRightRadiographic ImagingSpecimen (Source) Anatomical Location / LateralityCollection Method / VolumeCollection Time Received Time Narrative 05/04/2025 4:03 PM EDT Imaging Result: Two view x-rays taken in the [place] office saved to the permanent record shows stable position and alignment of the reverse arthroplasty. ?? There is no sign of loosening or infection. ?? Authorizing ProviderResult TypeResult StatusMichael Stefania Knowles DOIMG XR PROCEDURES Final Result from Last 3 Months [place] [address] Care Teams Team MemberRelationshipSpecialtyStart DateEnd Date Jelani Donovan MD [address] [place] [address] [facility] - [facility]01/11/24
--- OUTSIDE RECORDS SUMMARY | 2025-06-27 07:59 | XMS_ITS | Clinical Summary ---
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 [employer] Name Role Phone Unavailable Primary Care Provider Unavailabl e Allergies No known active allergies Medications No known medications Active Problems ProblemNoted DateDiagnosed RpcmTkqbfwipgw95/07/2013Spondylolisthesis of lumbosacral doaifa8201/01/2012DDD (degenerative disc disease), dphjtr3501/01/2012 Social History Tobacco UseTypesPacks/DayYears UsedDateSmoking Tobacco: NeverSmokeless Tobacco: NeverAlcohol UseStandard Drinks/WeekCommentsYes0 (1 standard drink = 0.6 oz pure alcohol)Sex and Gender InformationValueDate RecordedSex Assigned at BirthNot on fileLegal RbjHmuc02/02/2012 10:15 AM ESTGender IdentityNot on fileSexual OrientationNot on file Last Filed Vital Signs Vital SignReadingTime TakenCommentsBlood Ngsfuslt105/8904 11:13 AM EDT Atygs1498 11:13 AM VFKUtrohzzgztq23.8 ??C (96.5 ??F)03/19/2012 2:40 PM EDTRespiratory Ylrq611010/31/2015 11:13 AM EDTOxygen Zwxhntdstc32%03/19/2012 2:40 PM EDTInhaled Oxygen Concentration--Ecffon018.9 kg (266 lb 8.6 oz)04/29/2012 8:19 AM FXISmjvmw183 cm (6' 2 )04/29/2012 8:19 AM EDTBody Mass Index34.22 04/29/2012 8:19 AM EDT Plan of Treatment Health MaintenanceDue DateLast DoneCommentsAnxiety Afwwpfvqp59/01/1972Depression Pcmjhwabe95/01/1972Hepatitis C Crcklobza03/01/1972DTaP,Tdap,Td Vaccine (1 - Tdap)1972Lipid Lazjrmbaq79/01/1989CT Rrpmhwnbkrjb98/01/1999Cologuard (FIT-DNA)10/25/19984261Dedjiaadieh54/01/1999Colorectal Cancer Jqggxydtu03/01/1999 Fecal Occult Blood10/25/19985606Tqyefmgrlssvv97/01/1999Pneumococcal Vaccine: 50+ (1 of 1 - PCV)10/26/2003Shingrix Vaccine (1 of 2)10/26/2003Diabetes Screening , 03/04/2012dvance Directive Ofdlszojri35/01/2025ovid-19 Vaccine (1 - season)2025Influenza Vaccine (#1)2025RSV Vaccine (1 - 1-dose 75+ series)2028 Medical Devices ImplantedTypeAreaManufacturerDevice IdentifierShelf Expiration DateModel / Serial / LotGraft Bn Infs Rhbmp-2 2.8ml Sm - [id number] Implanted:Qty: 1 on 03/18/2012 at [facility]/A: Spine - Lumbar [employer] SOFOR DAN05/27/[id number] / / [id number]:naGraft Bn Canc 15ml Allgrft - [id number] Implanted:Qty: 1 on 03/18/2012 at [facility]/A: Spine - LumbarMTF 12/05/[id number] / [id number] / NADescription:wxIqe-Gs-T-Kind Implant - [id number] Implanted:Qty: 1 on 03/18/2012 at [facility]/A: Spine - Lumbar [employer] [place] SPINE.802.016S / / [id number]:synfix-lr 26 mm depth 32mm width 12mm height 8 degree ster Fvd-Nm-V-Kind Implant - [id number] [facility]: Sp[facility] - Lumbar [employer] [id number] / / NADescription:4 x 25 mm [id number] SCREW Procedures Procedure NamePriorityDate/TimeAssociated DiagnosisCommentsBASIC METABOLIC PANEL Yhxaldw6603/19/2012 1:12 AM EDT from Last 3 Months or Most Recently Relevant to Health Maintenance Results * (ABNORMAL) BASIC METABOLIC PNL (03/19/2012 1:12 AM EDT)ComponentValueRef Range Test MethodAnalysis TimePerformed AtPathologist ZkrunldsbOclylef486(H)65 - 100 mg/dLGREENE MEMORIAL H[facility]PITAL MAIN LABORATORYBUN8(L)10 - 25 mg/dLSHELTERING ARMS [facility]ITAL LABORATORYCreatinine0.720.70 - 1.40 mg/dLSHELTERING ARMS HOSPITAL LABORATORY Irkxya474120 - 146 mmol/LCUNIVERSITY HOSPITALS GEAUGA [facility] LABORATORYPotassium4.23.5 - 5.0 mmol/LCPROMEDICA FLOWER [facility] MAIN BSWMMBRAJWZmcfxior67759 - 110 mmol/LCUNIVERSITY H[facility]PITALS GEAU[facility] JJNLXFTLLXHW53611 - 32 mmol/LCPROMEDICA FLOWER HOSPITAL MAIN LABORATORYAnion Gap80 - 15 mmol/LCPROMEDICA FLOWER HOSPITAL MAIN LABORATORYCalcium7.8(L)8.5 - 10.5 mg/dL [facility] LABORATORYSpecimen (Source)Anatomical Location / LateralityCollection Method / VolumeCollection TimeReceived TimeBlood specimen (specimen)BLOOD SPECIMEN / Vcvpflb8903/19/2012 1:12 AM EDT03/19/2012 1:13 AM EDT Narrative Authorizing ProviderResult TypeResult StatusRobert Specialty Hospital [facility] LainLABORATORYFinal ResultPerforming OrganizationAddressCity/State/ZIP CodePhone Number [facility] [address] [place] [address] from Last 3 Months or Most Recently Relevant to Health Maintenance Insurance
[2025-06-27] MEDS: CEFAZOLIN SODIUM 1 GM/50 ML D5W PREMIX IV (08:37)
[2025-06-27] MEDS: GENTAMICIN SULFATE 120 MG in 0.9 % SODIUM CHLORIDE 100 ML 206 MG IV (09:37)
[2025-06-27] MEDS: LIDOCAINE HCL 1% 100 MG/10 ML MDV INJ ×2 (10:00→10:02)
--- NOTE | 2025-06-27 10:37 | P.URON_ITS ---
Urology Surgery Operative Note Operative Note Procedure Date: 06/27/25 Time Out Performed: yes Pre-op Diagnosis: Prostate cancer; active surveillance Post-op Diagnosis: same as pre-op Procedures performed: 1. Transperineal prostate MRI fusion biopsies Anesthesia: local and General-LMA Primary Surgeon: Ariel Yan Complications: None Estimated blood loss (mL): 10 Findings: No evidence of hypoechoic areas Specimens: 1. Mapped out biopsies bilaterally via the standard precision point format Indications for Procedures: This gentleman has a history of Nidia 3+3 equal 6 prostate cancer diagnosed about a year ago. He has been in active surveillance. He now presents for a confirmatory biopsy. He has signed an informed consent after risks were explained. Some of these risks include bleeding, infection, urosepsis and anesthesia to name a few. Detailed description of Procedure: The patient was kept on the [facility] bed and brought into the operating room. He was in the supine position. SCDs were placed on his lower extremities and turned on and functioning during the entire case. Timeout was done by all parties in the room. We all agreed upon the patient's identification and the planned procedures for this patient. General anesthesia was then administered via LMA. He was then repositioned into the modified dorsal lithotomy position. All pressure points were satisfactorily padded. The perineum was sterilely prepped and draped in the usual fashion. I started by passing the UroNav ultrasound probe per rectum. The precision point device was attached to the probe. I then marked the left and the right puncture sites with a marking pen. 1% plain lidocaine was then used to infiltrate the skin and then the deeper tissues. I then passed a spinal needle through the introducer and did deep anesthesia up to the prostatic capsule near the apex. This was done bilaterally. I then started in the posterior quadrants. I obtained biopsies from the left and the right sides. Right posterior lateral and medial and left posterior lateral and medial along with biopsies from the base on each side. 2 biopsies were obtained from each site. I then did the anterior medial and lateral bilaterally. 2 biopsies were obtained from each site. The probe was then removed. He was then transferred to a [facility] bed and wheeled to PACU in stable condition.
--- NOTE | 2025-06-27 10:58 | PC.NURSE ---
1054 Patient is awake and denies any pain at this time. Quickly falls back asleep. Denies any needs at this time.
--- NOTE | 2025-06-27 11:49 | PC.NURSE ---
patient voided blood tinged urine prior to discharge. Patient denies any pain.
== END 2025-06-27 11:49 | disposition home or self-care (01) ==
LOC: SURGOUT 07:56
PROVIDERS: PCP Family Medicine; Visit Provider Urology
PROC: (CPT 55700; principal; 2025-06-27 09:00)
DX: C61 Malignant neoplasm of prostate (principal); R97.20 Elevated prostate specific antigen [PSA]; E78.5 Hyperlipidemia, unspecified; Z87.442 Personal history of urinary calculi; N40.0 Benign prostatic hyperplasia without lower urinary tract symptoms; Z98.1 Arthrodesis status; Z96.619 Presence of unspecified artificial shoulder joint; G47.33 Obstructive sleep apnea (adult) (pediatric); E66.01 Morbid (severe) obesity due to excess calories; F32.A Depression, unspecified; Z68.37 Body mass index [BMI] 37.0-37.9, adult
CPT/HCPCS: 55700; 36415; J0131; J0690; J1100; J1580; J1885; J2250; J2371; J2405; J2704